=== PATIENT | male | born 1940 | race Caucasian/White ===

== ENCOUNTER 2016-08-13 22:06 | Inpatient (IN) | payer MEDICARE, MEDICAID ==
[2016-08-13 22:25] LABS: PCO2 Arterial 52 mmHg (35-45)
[2016-08-13 22:51] LABS: ALT 16 U/L (7-52); Albumin 3.5 g/dL (3.2-5.2); Alkaline Phosphatase 71 U/L (34-104); BUN/Creatinine Ratio 25.1 (8-20); Blood Urea Nitrogen 45 mg/dL (6-24); C Reactive Protein 22.68 mg/L (< 5.00); CO2 Carbon Dioxide 26 mmol/L (22-32); Chloride 104 mmol/L (101-111); Creatine Kinase 57 U/L (10-223); EGFR Non-African American 37.3 (>60); Globulin 3.3 g/dL (2-4); Glucose 166 mg/dL (70-100); Lipase < 10 U/L (11.0-82.0); Magnesium 1.8 mg/dL (1.9-2.7); Sodium 137 mmol/L (133-145); Total Protein 6.8 g/dL (6.4-8.9)
[2016-08-13 22:52] LABS: Hematocrit 36 % (42-52); Hemoglobin 11.2 g/dl (14.0-18.0); Mean Corpuscular HGB Conc 31 g/dl (31-36); Mean Corpuscular Hemoglobin 26 pg (27-31); Mean Corpuscular Volume 83 fL (80-94); Red Blood Count 4.37 10^6/ul (4.0-5.4); Red Cell Distribution Width 18 % (10.5-15)
[2016-08-13 22:54] LABS: Add Diff/Slide Review? Manual Diff Added; Comments Flag Yes
[2016-08-13 23:04] LABS: Troponin I 0.05 ng/mL (<0.04)
[2016-08-13 23:05] LABS: TSH (Thyroid Stimulating Horm) 4.55 mcIU/mL (0.34-5.60)
[2016-08-13] MEDS ORDERED: Furosemide IV* 10 MG/ML VIAL (40 MG) IV ONE (23:15)
[2016-08-13 23:26] LABS: AST 17 U/L (13-39); Anion Gap 7 mmol/L (2-11); Potassium 4.9 mmol/L (3.5-5.0)
[2016-08-13 23:33] LABS: Mean Platelet Volume 10 um3 (7.4-10.4)
[2016-08-13] MEDS ORDERED: Levofloxacin 750 MG IVPREMIX(* 750 MG/150 ML BAG IVPB ONE (23:33)
[2016-08-14 00:13] LABS: Neutrophil % 90 % (38-83)
[2016-08-14 00:14] LABS: Add Path Review? YES; Burr Cells 1+; Schistocytes 1+
[2016-08-14 00:23] LABS: Urine Bacteria 3+ (Absent); Urine Bilirubin Negative (Negative); Urine Glucose 2+(150 mg/dL) (Negative); Urine Nitrite Negative (Negative)
[2016-08-14 02:16] LABS: FIO2 28
[2016-08-14 02:20] LABS: PCO2 Arterial 45 mmHg (35-45)
--- NOTE | 2016-08-14 04:20 | ED ---
Juan Mccray Aidan, scribed for Ever Mora on 08/14/16 at 0337 . Progress - Progress Note Progress Note: The patient will be admitted to the hospitalist with a diagnosis of CHF and SOB. Course/Dx - Diagnoses Provider Diagnoses: CHF (congestive heart failure) The documentation as recorded by the Juan preston Aidan accurately reflects the service I personally performed and the decisions made by Morgan carter Emmanuel.
[2016-08-14] MEDS ORDERED: Albuterol 2.5 MG/3 ML NEB.SOL* (0.083%) INH PRN (04:32)
[2016-08-14] MEDS ORDERED: Morphine INJ* 2 MG/ML 1 ML CARPUJECT IV PRN (04:32)
[2016-08-14] MEDS ORDERED: Ondansetron INJ* 2 MG/ML VIAL IV PRN (04:32)
[2016-08-14] MEDS ORDERED: CMCS: Melatonin (NF) 3 MG TAB PO PRN (04:32)
[2016-08-14] MEDS: CMCS: Pantoprazole TAB (NF) 40 MG TAB PO SCH (06:06)
[2016-08-14] MEDS ORDERED: Albuterol 2.5 MG/3 ML NEB.SOL* (0.083%) INH SCH (07:00)
--- NOTE | 2016-08-14 07:10 | RAD ---
INDICATION: Shortness of breath. COMPARISON: Comparison is made with prior chest x-ray study from May 17, 2015. TECHNIQUE: A portable view of the chest was obtained. FINDINGS: The heart is within normal limits in size. The lungs are underinflated. There are small bibasilar infiltrates suggestive of atelectasis less likely pneumonia. The left costophrenic angle is cut off on the film limiting the exam. IMPRESSION: EXPIRATORY EXAM, SMALL BIBASILAR INFILTRATE.
[2016-08-14] MEDS: Mometasone/Formoter 200/5 MDI INH SCH ×2 (07:13→19:27)
[2016-08-14] MEDS: Tiotropium CAP.INH* CAP.INH/18 MCG (USE ORDER SET !) INH SCH (07:14)
--- NOTE | 2016-08-14 07:30 | HP ---
H&P (Free Text) History and Physical: PCP: Earl Forrester MD Date/Time of Evaluation: 02/11/2017 0400 CC: SOB HPI: Mr Camargo is 75YO male HX CHF, DM, HTN who reports being in his usual state of health throughout the day with gradual onset of progressive SOB beginning around 1900. He notified staff at [facility] where he lives. They gave him a breathing treatment without improvement, rather he was continuing to worsen and so EMS was called. He denies chest pain, palpitations, F/C, cough, congestion, or other issues. He was placed on BiPap. Initial ABG showed early hypercarbic respiratory failure. He was given IV furosemide and was able to be weaned from BiPap with ABG ~1hour post BiPap remaining normalized. 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 hypothyroidism REY Allergies No Known Allergies Allergy (Verified 08/13/16 22:25) Ambulatory Orders Acetaminophen TAB* [Tylenol TAB*] 650 mg PO Q4H PRN 09/09/12 Amiodarone TAB* [Cordarone Tab*] 100 mg PO DAILY 09/09/12 Aspirin Low Dose CHEW TAB* [Aspirin Low Dose TAB*] 81 mg PO DAILY 09/09/12 Atorvastatin* [Lipitor*] 10 mg PO BEDTIME 09/09/12 Carvedilol TAB* [Coreg TAB*] 12.5 mg PO BID 09/09/12 Clopidogrel TAB* [Plavix TAB*] 75 mg PO DAILY 09/09/12 Docusate CAP* [Colace Cap*] 200 mg PO DAILY 09/09/12 Pantoprazole TAB (NF) [Protonix TAB (NF)] 40 mg PO DAILY 09/09/12 oxyCODONE/Acetamin 5/325 MG* [Percocet 5/325 TAB*] 1 tab PO Q4H PRN 09/09/12 predniSONE TAB* [Deltasone TAB*] 20 mg PO BEDTIME 09/09/12 Cholecalciferol [Vitamin D3] 50,000 unit PO MONTHLY 02/02/15 Finasteride TAB* [Proscar TAB*] 5 mg PO BEDTIME 02/02/15 Guaifenesin 400 mg PO BID PRN 02/02/15 Insulin ASPART (NF) [Novolog (NF)] 0 - 15 unit SUBCUT AC 02/02/15 Levothyroxine TAB (NF) [Synthroid TAB (NF)] 175 mcg PO MOTUWETHFRSA 02/02/15 Magnesium Hydroxide LIQ* [Milk of Magnesia LIQ*] 30 ml PO DAILY PRN 02/02/15 zzInsulin GLARGINE(*) [Lantus(*)] 50 units SUBCUT QAM 02/02/15 Alum & Mag Hydrox-Simethicone [Maalox Advanced Maximum S 400-400-40 mg/5Ml] 1 nicky PO Q4H PRN 08/13/16 Doxycycline Calcium [Vibramycin] 100 mg PO BID 08/13/16 Ipratropium 0.5MG/2.5ML NEB* [Atrovent 0.5 MG NEB.FRAN*] 0.5 mg INH Q4H PRN 08/13 Lactobacillus (NF) [Culturelle (NF)] 10 tab PO DAILY 08/13/16 Loratadine [Claritin] 10 mg PO DAILY 08/13/16 predniSONE TAB* [Deltasone TAB*] 10 mg PO DAILY 08/13/16 SocHx: former smoker quit ~40 years ago, former alcoholic quit ~40 years ago, no recreational drugs; lives at [facility], wheelchair bound; DNR code status FamHx: reviewed, non-contributory ROS: as above, otherwise reviewed and all were negative Constitutional: NAD, normally developed, morbidly obese white male vitals: Vital Signs Temp 36.9 C 08/14/16 06:10 Pulse 86 08/14/16 06:10 Resp 18 08/14/16 06:14 BP 147/81 08/14/16 06:10 Pulse Ox 97 08/14/16 06:10 Intake & Output 08/13/16 08/13/16 08/14/16 11:59 23:59 11:59 Intake Total 150 Balance 150 Weight 319 lb 295 lb Intake: IV Fluids 150 HEENM: atraumatic; sclera/conjunctiva: non-icteric/clear; hearing: mildly clinically decreased; oropharynx: clear, mucosa moist Neck: soft tissue: non-tender; thyroid: normal Pulmonary: scant scattered rhonchi, good aeration, no accessory muscle use CV: RR/RR, normal S1S2, no carotid bruit, no jugular venous distention, 2+ B DP/ PT, 3+ LE edema Abdominal: soft, non-distended, non-tender, no rebound/guarding/rigidity, normoactive bowel sounds, no hepatosplenomegaly or masses, no costovertebral angle tenderness Musculoskeletal: general: s/p R BKA; gait: wheelchair bound at baseline Integumental: venous stasis LLE Psychiatric orientation: AA&O to PPS affect: calm mood: cooperative eye contact: good, OD strabismus content: reliable responses: timely insight: good Testing: Lab Results 08/13/16 08/13/16 08/13/16 Range/Units 22:15 22:20 22:20 WBC 18.0 H (3.5-10.8) 10^3/ul RBC 4.37 (4.0-5.4) 10^6/ul Hgb 11.2 L (14.0-18.0) g/dl Hct 36 L (42-52) % MCV 83 (80-94) fL MCH 26 L (27-31) pg MCHC 31 (31-36) g/dl RDW 18 H (10.5-15) % Plt Count 267 (150-450) 10^3/ul MPV 10 (7.4-10.4) um3 Immature Gran % (Auto) Not Reportable Absolute Neuts (auto) 16.2 H (1.5-7.7) 10^3/ul Absolute Lymphs (auto) 0.4 L (1.0-4.8) 10^3/ul Absolute Monos (auto) 1.4 H (0-0.8) 10^3/ul Absolute Eos (auto) 0 (0-0.6) 10^3/ul Absolute Basos (auto) 0 (0-0.2) 10^3/ul Absolute Nucleated RBC 0 10^3/ul Neutrophils % 90 H (38-83) % Band Neutrophils % Not Reportable Lymphocytes % 2 L (25-47) % Monocytes % 8 (0-13) % Normal RBC Morphology Not Reportable [place] Cells 1+ Acanthocytes (Spur) 1+ Schistocytes 1+ Hem Pathologist Commnt Pending INR (Anticoag Therapy) 0.95 (0.89-1.11) APTT 23.3 L (26.0-36.3) seconds Patient Temperature ABG pH 7.34 L (7.35-7.45) ABG pCO2 52 H (35-45) mmHg ABG pO2 113 H (80-100) mmHg ABG HCO3 26.1 (19-31) mmol/L ABG O2 Saturation 97.9 (95-98) % ABG Base Excess 1.6 (-2.0-2.0) Respiration Rate O2 Delivery Device Ventilator Type Vent Mode FiO2 Inspiratory Time PEEP Pressure Support Pressure Control EPAP IPAP BiPAP Sodium (133-145) mmol/L Potassium (3.5-5.0) mmol/L Chloride (101-111) mmol/L Carbon Dioxide (22-32) mmol/L Anion Gap (2-11) mmol/L BUN (6-24) mg/dL Creatinine (0.67-1.17) mg/dL Est GFR ( Amer) (>60) Est GFR (Non-Af Amer) (>60) BUN/Creatinine Ratio (8-20) Glucose (70-100) mg/dL Lactic Acid (0.5-2.0) mmol/L Calcium (8.6-10.3) mg/dL Magnesium (1.9-2.7) mg/dL Total Bilirubin (0.2-1.0) mg/dL AST (13-39) U/L ALT (7-52) U/L Alkaline Phosphatase (34-104) U/L Total Creatine Kinase (10-223) U/L CK-MB (CK-2) (0.6-6.3) ng/mL Troponin I (<0.04) ng/mL C-Reactive Protein (< 5.00) mg/L B-Natriuretic Peptide ( - 100) pg/mL Total Protein (6.4-8.9) g/dL Albumin (3.2-5.2) g/dL Globulin (2-4) g/dL Albumin/Globulin Ratio (1-3) Lipase (11.0-82.0) U/L TSH (0.34-5.60) mcIU/mL Urine Color Urine Appearance Urine pH (5-9) Ur Specific [place] (1.010-1.030) Urine Protein (Negative) Urine Ketones (Negative) Urine Blood (Negative) Urine Nitrate (Negative) Urine Bilirubin (Negative) Urine Urobilinogen (Negative) Ur Leukocyte Esterase (Negative) Urine WBC (Auto) (Absent) Urine RBC (Auto) (Absent) Ur Squamous Epith Cells (Absent) Urine Bacteria (Absent) Hyaline Casts (Absent) Urine Glucose (Negative) 08/13/16 08/13/16 08/13/16 Range/Units 22:20 22:20 22:20 WBC (3.5-10.8) 10^3/ul RBC (4.0-5.4) 10^6/ul Hgb (14.0-18.0) g/dl Hct (42-52) % MCV (80-94) fL MCH (27-31) pg MCHC (31-36) g/dl RDW (10.5-15) % Plt Count (150-450) 10^3/ul MPV (7.4-10.4) um3 Immature Gran % (Auto) Absolute Neuts (auto) (1.5-7.7) 10^3/ul Absolute Lymphs (auto) (1.0-4.8) 10^3/ul Absolute Monos (auto) (0-0.8) 10^3/ul Absolute Eos (auto) (0-0.6) 10^3/ul Absolute Basos (auto) (0-0.2) 10^3/ul Absolute Nucleated RBC 10^3/ul Neutrophils % (38-83) % Band Neutrophils % Lymphocytes % (25-47) % Monocytes % (0-13) % Normal RBC Morphology Volodymyr Cells Acanthocytes (Spur) Schistocytes Hem Pathologist Commnt INR (Anticoag Therapy) (0.89-1.11) APTT (26.0-36.3) seconds Patient Temperature ABG pH (7.35-7.45) ABG pCO2 (35-45) mmHg ABG pO2 (80-100) mmHg ABG HCO3 (19-31) mmol/L ABG O2 Saturation (95-98) % ABG Base Excess (-2.0-2.0) Respiration Rate O2 Delivery Device Ventilator Type Vent Mode FiO2 Inspiratory Time PEEP Pressure Support Pressure Control EPAP IPAP BiPAP Sodium 137 (133-145) mmol/L Potassium 4.9 (3.5-5.0) mmol/L Chloride 104 (101-111) mmol/L Carbon Dioxide 26 (22-32) mmol/L Anion Gap 7 (2-11) mmol/L BUN 45 H (6-24) mg/dL Creatinine 1.79 H (0.67-1.17) mg/dL Est GFR ( Amer) 48.0 (>60) Est GFR (Non-Af Amer) 37.3 (>60) BUN/Creatinine Ratio 25.1 H (8-20) Glucose 166 H (70-100) mg/dL Lactic Acid 0.9 (0.5-2.0) mmol/L Calcium 9.0 (8.6-10.3) mg/dL Magnesium 1.8 L (1.9-2.7) mg/dL Total Bilirubin 0.50 (0.2-1.0) mg/dL AST 17 (13-39) U/L ALT 16 (7-52) U/L Alkaline Phosphatase 71 (34-104) U/L Total Creatine Kinase 57 (10-223) U/L CK-MB (CK-2) 4.7 (0.6-6.3) ng/mL Troponin I 0.05 H* (<0.04) ng/mL C-Reactive Protein 22.68 H (< 5.00) mg/L B-Natriuretic Peptide 410 H ( - 100) pg/mL Total Protein 6.8 (6.4-8.9) g/dL Albumin 3.5 (3.2-5.2) g/dL Globulin 3.3 (2-4) g/dL Albumin/Globulin Ratio 1.1 (1-3) Lipase < 10 L (11.0-82.0) U/L TSH 4.55 (0.34-5.60) mcIU/mL Urine Color Urine Appearance Urine pH (5-9) Ur Specific [place] (1.010-1.030) Urine Protein (Negative) Urine Ketones (Negative) Urine Blood (Negative) Urine Nitrate (Negative) Urine Bilirubin (Negative) Urine Urobilinogen (Negative) Ur Leukocyte Esterase (Negative) Urine WBC (Auto) (Absent) Urine RBC (Auto) (Absent) Ur Squamous Epith Cells (Absent) Urine Bacteria (Absent) Hyaline Casts (Absent) Urine Glucose (Negative) 08/13/16 08/14/16 Range/Units 23:50 02:12 WBC (3.5-10.8) 10^3/ul RBC (4.0-5.4) 10^6/ul Hgb (14.0-18.0) g/dl Hct (42-52) % MCV (80-94) fL MCH (27-31) pg MCHC (31-36) g/dl RDW (10.5-15) % Plt Count (150-450) 10^3/ul MPV (7.4-10.4) um3 Immature Gran % (Auto) Absolute Neuts (auto) (1.5-7.7) 10^3/ul Absolute Lymphs (auto) (1.0-4.8) 10^3/ul Absolute Monos (auto) (0-0.8) 10^3/ul Absolute Eos (auto) (0-0.6) 10^3/ul Absolute Basos (auto) (0-0.2) 10^3/ul Absolute Nucleated RBC 10^3/ul Neutrophils % (38-83) % Band Neutrophils % Lymphocytes % (25-47) % Monocytes % (0-13) % Normal RBC Morphology [place] Cells Acanthocytes (Spur) Schistocytes Hem Pathologist Commnt INR (Anticoag Therapy) (0.89-1.11) APTT (26.0-36.3) seconds Patient Temperature Not Reportable ABG pH 7.40 (7.35-7.45) ABG pCO2 45 (35-45) mmHg ABG pO2 77 L (80-100) mmHg ABG HCO3 26.9 (19-31) mmol/L ABG O2 Saturation 97.3 (95-98) % ABG Base Excess 2.6 H (-2.0-2.0) Respiration Rate Not Reportable O2 Delivery Device nasal cannula Ventilator Type Not Reportable Vent Mode Not Reportable FiO2 28 Inspiratory Time Not Reportable PEEP Not Reportable Pressure Support Not Reportable Pressure Control Not Reportable EPAP Not Reportable IPAP Not Reportable BiPAP Not Reportable Sodium (133-145) mmol/L Potassium (3.5-5.0) mmol/L Chloride (101-111) mmol/L Carbon Dioxide (22-32) mmol/L Anion Gap (2-11) mmol/L BUN (6-24) mg/dL Creatinine (0.67-1.17) mg/dL Est GFR ( Amer) (>60) Est GFR (Non-Af Amer) (>60) BUN/Creatinine Ratio (8-20) Glucose (70-100) mg/dL Lactic Acid (0.5-2.0) mmol/L Calcium (8.6-10.3) mg/dL Magnesium (1.9-2.7) mg/dL Total Bilirubin (0.2-1.0) mg/dL AST (13-39) U/L ALT (7-52) U/L Alkaline Phosphatase (34-104) U/L Total Creatine Kinase (10-223) U/L CK-MB (CK-2) (0.6-6.3) ng/mL Troponin I (<0.04) ng/mL C-Reactive Protein (< 5.00) mg/L B-Natriuretic Peptide ( - 100) pg/mL Total Protein (6.4-8.9) g/dL Albumin (3.2-5.2) g/dL Globulin (2-4) g/dL Albumin/Globulin Ratio (1-3) Lipase (11.0-82.0) U/L TSH (0.34-5.60) mcIU/mL Urine Color Yellow Urine Appearance Cloudy Urine pH 8.0 (5-9) Ur Specific [place] 1.013 (1.010-1.030) Urine Protein 2+(100 mg/dl) H (Negative) Urine Ketones Negative (Negative) Urine Blood 1+ H (Negative) Urine Nitrate Negative (Negative) Urine Bilirubin Negative (Negative) Urine Urobilinogen Negative (Negative) Ur Leukocyte Esterase 2+ H (Negative) Urine WBC (Auto) 3+(>20/hpf) H (Absent) Urine RBC (Auto) Trace(0-2/hpf) (Absent) Ur Squamous Epith Cells Present H (Absent) Urine Bacteria 3+ H (Absent) Hyaline Casts Present H (Absent) Urine Glucose 2+(150 mg/dl) H (Negative) ECG, personally reviewed: sinus arrhythmia LBBB CXR, personally reviewed: CHF Impression: 75M presenting in acute hypercapneic respiratory failure 2nd acute diastolic HF of uncertain etiology DIAGNOSIS & PLAN Primary acute hypercapneic respiratory failure 2nd acute diastolic HF of uncertain etiology : telemetry : continue furosemide diuresis : strict I&Os : daily weights : low sodium diet : trend troponin : check ECHO : consider cardiology consult in AM : supplemental oxygen : supportive care Secondary CAD/MS/stent x2 : continue aspirin, clopidogrel, amiodarone HTN : continue carvediolol HLD : continue atorvastatin DM2 w/ peripheral neuropathy : insulin carb ratio diet : basal/bolus/correctional protocol s/p BKA sarcoidosis : continue prednisone hypothyroidism : continue levothyroxine GERD : omeprazole BPH : continue finasteride Admission Rational: inpatient for acute diastolic HF of uncertain etiology in a patient at very high risk of rapid/terminal decompensation DVTp: SCDs & heparin SQ Code Status: DNR HCP: daughterKarla
[2016-08-14 07:51] LABS: Hematocrit 34 % (42-52); Hemoglobin 10.7 g/dl (14.0-18.0); Mean Corpuscular HGB Conc 32 g/dl (31-36); Mean Corpuscular Hemoglobin 26 pg (27-31); Mean Corpuscular Volume 82 fL (80-94); Mean Platelet Volume 10 um3 (7.4-10.4); Red Blood Count 4.12 10^6/ul (4.0-5.4); Red Cell Distribution Width 17 % (10.5-15); White Blood Count 18.1 10^3/ul (3.5-10.8)
[2016-08-14] MEDS: Insulin LISPRO* 1 UNITS UNIT SUBCUT SCH ×7 (07:56→20:18)
[2016-08-14 07:59] LABS: Comments Flag Yes
[2016-08-14 08:01] LABS: Add Diff/Slide Review? Slide Review Added
[2016-08-14 08:04] LABS: BUN/Creatinine Ratio 25.8 (8-20); EGFR African American 48.3 (>60); EGFR Non-African American 37.5 (>60); Potassium 4.2 mmol/L (3.5-5.0)
[2016-08-14 08:14] LABS: Troponin I 0.16 ng/mL (<0.04)
[2016-08-14] MEDS ORDERED: Spiriva Inhaler DEVICE* 1 EACH DEVICE INH ONE (09:00)
[2016-08-14] MEDS: predniSONE TAB* 10 MG PO SCH (09:14)
[2016-08-14] MEDS: Docusate CAP* 100 MG PO SCH ×2 (09:14→20:16)
[2016-08-14] MEDS: Aspirin Low Dose CHEW TAB* 81 MG PO SCH (09:14)
[2016-08-14] MEDS: Amiodarone TAB* 200 MG PO SCH (09:14)
[2016-08-14] MEDS: Carvedilol TAB* 6.25 MG PO SCH ×2 (09:14→17:26)
[2016-08-14] MEDS: Clopidogrel TAB* 75 MG PO SCH (09:14)
[2016-08-14] MEDS: Furosemide IV* 10 MG/ML 10 ML VIAL (100 MG) IV SCH ×2 (09:15→13:38)
[2016-08-14] MEDS: Insulin GLARGINE(*) 1 UNITS UNIT SUBCUT SCH (09:17)
[2016-08-14] MEDS: DOXYcycline CAP(*) 100 MG PO SCH ×2 (09:21→20:16)
--- NOTE | 2016-08-14 09:47 | PN ---
Subjective Date of Service: 08/14/16 Interval History: Patient seen this morning. Says he is feeling much improved in terms of breathing. Denies any chest pain. Urinated a lot in ED (not documented), no dysuria. Reports concern about his kidneys, reassured they are stable. Family History: Unchanged from Admission Social History: Unchanged from Admission Past Medical History: Unchanged from Admission Objective Active Medications: Acetaminophen (Tylenol Tab*) 650 mg PO Q6H PRN Albuterol (Ventolin 2.5 Mg/3 Ml Neb.Shari*) 2.5 mg INH Q2H PRN Albuterol (Ventolin 2.5 Mg/3 Ml Neb.Shari*) 2.5 mg INH [id number] AWAKE ARBEN Amiodarone HCl (Cordarone Tab*) 100 mg PO DAILY ARBEN Aspirin (Aspirin Low Dose Tab*) 81 mg PO DAILY ARBEN Atorvastatin Calcium (Lipitor*) 10 mg PO BEDTIME ARBEN Carvedilol (Coreg Tab*) 12.5 mg PO BID WITH MEALS ARBEN Cetirizine HCl (Zyrtec*) 10 mg PO QPM ARBEN Clopidogrel Bisulfate (Plavix Tab*) 75 mg PO DAILY ARBEN Docusate Sodium (Colace Cap*) 200 mg PO BID ARBEN Doxycycline Hyclate (Vibramycin Cap(*)) 100 mg PO BID ARBEN Finasteride (Proscar Tab*) 5 mg PO BEDTIME ARBEN Furosemide (Lasix Iv*) 40 mg IV 0800,1200 ARBEN Heparin Sodium (Porcine) (Heparin Vial(*)) 5,000 units SUBCUT Q8HR ARBEN Insulin Glargine (Lantus(*)) 35 units SUBCUT 0900 ARBEN Insulin Human Lispro (Humalog*) 0 units SUBCUT AC ARBEN Insulin Human Lispro (Humalog*) 0 units SUBCUT ACHS ARBEN Levothyroxine Sodium (Synthroid Tab*) 100 mcg PO MoTuWeThFrSa@0600 ARBEN Levothyroxine Sodium (Synthroid Tab*) 75 mcg PO MoTuWeThFrSa@0600 ARBEN Melatonin (Melatonin (Nf)) 3 mg PO BEDTIME PRN; Protocol Mometasone Furoate/Formoterol Fumar (Dulera 200/5 Mdi*) 2 puff INH BID ARBEN Morphine Sulfate (Morphine Inj (Syringe)*) 2 mg IV Q4H PRN Ondansetron HCl (Zofran Inj*) 4 mg IV Q6H PRN Pantoprazole Sodium (Protonix Tab (Nf)) 40 mg PO DAILY@0600 ARBEN Prednisone (Deltasone Tab*) 10 mg PO DAILY WITH MEAL [facility] Tiotropium Lehr (Spiriva Cap.Inh*) 1 cap INH DAILY [facility] Vital Signs 08/14/16 08/14/16 08/14/16 04:30 05:00 05:30 Temperature Pulse Rate 79 77 81 Respiratory Rate Blood Pressure 143/89 140/75 142/79 (mmHg) O2 Sat by Pulse 94 91 96 Oximetry 08/14/16 08/14/16 08/14/16 06:10 06:14 07:17 Temperature 98.5 F Pulse Rate 86 82 Respiratory 20 18 Rate Blood Pressure 147/81 (mmHg) O2 Sat by Pulse 97 93 Oximetry 08/14/16 07:48 Temperature 97.6 F Pulse Rate 96 Respiratory 16 Rate Blood Pressure 139/86 (mmHg) O2 Sat by Pulse 97 Oximetry Oxygen Devices in Use Now: Nasal Cannula Appearance: 2L Eyes: No Scleral Icterus Ears/Nose/Mouth/Throat: Mucous Membranes Moist Neck: NL Appearance and Movements; NL JVP Respiratory: Symmetrical Chest Expansion and Respiratory Effort, - - Diminished BS in bases Cardiovascular: - - Irregular, no m/g/r, normal rate Abdominal: NL Sounds; No Tenderness; No Distention Lymphatic: No Cervical Adenopathy Extremities: - - RLE BKA, signifiant LLE edema to low abdomen Skin: - - Chronic LE skin changes Neurological: Alert and Oriented x 3 Result Diagrams: 08/14/16 07:23 08/14/16 07:23 Assess/Plan/Problems-Billing Assessment: Acute combined hypoxic and hypercarbic respiratory failure 2/2 acute on chronic systolic CHF exacerbation in a 75 yo M with hx of sCHF, CAD s/p [place], HTN, HLD, DM , sarcoidosis with renal involvement, CKD, hypothyroidism, - Patient Problems (1) Acute on chronic systolic (congestive) heart failure Current Visit: Yes Comment: Improvement in respiratory status after BIPAP and Lasix. Continue BID Lasix for now with close eye on renal function and strict I/ O. Continue Coreg. Troponin elevation likely due to acute CHF, will continue to trend. Echo pending. Spoke with Cardiology who will evaluate the patient. (2) Acute respiratory failure with hypoxia and hypercapnia Current Visit: Yes Comment: Improving, no longer hypercarbic. O2 weaned to 2L , continue to wean as able. (3) CAD (coronary artery disease) Current Visit: No Comment: Cont ASA/Plavix/statin. Trend troponins as above. (4) HTN (hypertension) Current Visit: No Comment: Continue home Coreg (5) Hypothyroid Current Visit: No Comment: Continue home synthroid (6) CKD (chronic kidney disease) stage 3, GFR 30-59 ml/min Current Visit: No Comment: 2/2 renal sarcoid. Creat at baseline today. Cont to monitor (7) Chronic mastoiditis Current Visit: Yes Comment: Continue home doxycyline (8) Leukocytosis Current Visit: Yes Comment: chronic, s/p splenectomy (9) Diabetes Current Visit: Yes Comment: Continue decreased Lantus (on home is on 50u qAM and 20u qPM) and HISS (10) Sarcoidosis Current Visit: No Comment: On chronic prednisone at home. (11) DVT prophylaxis Current Visit: No Comment: heparin sc (12) DNR (do not resuscitate) Current Visit: Yes
[2016-08-14] MEDS ORDERED: Ipratropium 0.5MG/2.5ML NEB* 0.5 MG/2.5 ML NEB.SOLN INH PRN (09:52)
--- NOTE | 2016-08-14 10:30 | CONSULT ---
Subjective Date of Service: 08/14/16 Interval History: Admission Date: 08/14/16 Provider: Hospitalist Date of consult 08/14/2016 PCP : Earl Forrester MD CC : MERCEDES Reason for consult: CHF, abnormal troponin HPI : Mr Camargo is 75 year old man with a history of CAD s/p PCI with known unrevascularized obstructive distal RCA disease, HF with a mildly reduced LVEF not currently on a loop diuretic, chronic prednisone use for sarcoidosis, DM, HTN, VT in the past on low dose amiodarone. Patient wth gradual onset dyspnea and cough. He was found with acutely decompensated heart failure and has responded to BIPAP (now off) and IV lasix. He is no longer dyspneic at rest. He denied any chest, GI, shoulder or arm discomfort throughout any of this. He denies any recent palpitations or syncope. 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 hypothyroidism REY Hospitalized 07/2009 with CHF and VT, received PCI to Lcx had residual distal obstructive CAD of a dominant RCA Allergies No Known Allergies Allergy (Verified 08/13/16 22:25) SocHx : former smoker quit ~40 years ago, former alcoholic quit ~40 years ago, no recreational drugs; lives at [facility], wheelchair bound; DNR code status FamHx : reviewed, non-contributory Medications Active Medications: Acetaminophen (Tylenol Tab*) 650 mg PO Q6H PRN PRN Reason: FEVER/PAIN Amiodarone HCl (Cordarone Tab*) 100 mg PO DAILY [facility] Last Admin: 08/14/16 09:14 Dose: 100 mg Aspirin (Aspirin Low Dose Tab*) 81 mg PO DAILY [facility] Last Admin: 08/14/16 09:14 Dose: 81 mg Atorvastatin Calcium (Lipitor*) 10 mg PO BEDTIME [facility] Carvedilol (Coreg Tab*) 12.5 mg PO BID WITH MEALS [facility] Last Admin: 08/14/16 09:14 Dose: 12.5 mg Cetirizine HCl (Zyrtec*) 10 mg PO QPM [facility] Clopidogrel Bisulfate (Plavix Tab*) 75 mg PO DAILY [facility] Last Admin: 08/14/16 09:14 Dose: 75 mg Docusate Sodium (Colace Cap*) 200 mg PO BID [facility] Last Admin: 01/22/17 09:14 Dose: 200 mg Doxycycline Hyclate (Vibramycin Cap(*)) 100 mg PO BID [facility] Last Admin: 08/14/16 09:21 Dose: 100 mg Finasteride (Proscar Tab*) 5 mg PO BEDTIME [facility] Furosemide (Lasix Iv*) 40 mg IV 0800,1200 [facility] Last Admin: 08/14/16 09:15 Dose: 40 mg Heparin Sodium (Porcine) (Heparin Vial(*)) 5,000 units SUBCUT Q8HR [facility] Insulin Glargine (Lantus(*)) 35 units SUBCUT 0900 [facility] Stop: 08/15/16 20:00 Last Admin: 08/14/16 09:17 Dose: 35 units Insulin Human Lispro (Humalog*) 0 units SUBCUT AC [facility] PRN Reason: Protocol Last Admin: 08/14/16 08:55 Dose: Not Given Insulin Human Lispro (Humalog*) 0 units SUBCUT ACHS [facility] PRN Reason: Protocol Last Admin: 08/14/16 07:56 Dose: Not Given Ipratropium [place] (Atrovent 0.5 Mg Neb.Fran*) 0.5 mg INH Q4H PRN PRN Reason: SOB/WHEEZING Levothyroxine Sodium (Synthroid Tab*) 100 mcg PO MoTuWeThFrSa@0600 [facility] Levothyroxine Sodium (Synthroid Tab*) 75 mcg PO MoTuWeThFrSa@0600 [facility] Melatonin (Melatonin (Nf)) 3 mg PO BEDTIME PRN; Protocol PRN Reason: Sleep Mometasone Furoate/Formoterol Fumar (Dulera 200/5 Mdi*) 2 puff INH BID [facility] Last Admin: 08/14/16 07:13 Dose: 2 puff Morphine Sulfate (Morphine Inj (Syringe)*) 2 mg IV Q4H PRN PRN Reason: SOB/WHEEZING Ondansetron HCl (Zofran Inj*) 4 mg IV Q6H PRN PRN Reason: NAUSEA Pantoprazole Sodium (Protonix Tab (Nf)) 40 mg PO DAILY@0600 [facility] Last Admin: 08/14/16 06:06 Dose: 40 mg Prednisone (Deltasone Tab*) 10 mg PO DAILY WITH MEAL [facility] Last Admin: 08/14/16 09:14 Dose: 10 mg Tiotropium [place] (Spiriva Cap.Inh*) 1 cap INH DAILY [facility] Last Admin: 08/14/16 07:14 Dose: 1 cap Home Medications: Acetaminophen TAB* [Tylenol TAB*] 650 mg PO Q4H PRN 09/09/12 [History Confirmed 08/13/16] Amiodarone TAB* [Cordarone Tab*] 100 mg PO DAILY 09/09/12 [History Confirmed ] Aspirin Low Dose CHEW TAB* [Aspirin Low Dose TAB*] 81 mg PO DAILY 09/09/12 [ History Confirmed 08/13/16] Atorvastatin* [Lipitor*] 10 mg PO BEDTIME 09/09/12 [History Confirmed 08/13/16] Carvedilol TAB* [Coreg TAB*] 12.5 mg PO BID 09/09/12 [History Confirmed 08/13/16 ] Clopidogrel TAB* [Plavix TAB*] 75 mg PO DAILY 09/09/12 [History Confirmed ] Docusate CAP* [Colace Cap*] 200 mg PO DAILY 09/09/12 [History Confirmed 08/13/16 ] Pantoprazole TAB (NF) [Protonix TAB (NF)] 40 mg PO DAILY 09/09/12 [History Confirmed 08/13/16] oxyCODONE/Acetamin 5/325 MG* [Percocet 5/325 TAB*] 1 tab PO Q4H PRN 09/09/12 [ History Confirmed 08/13/16] predniSONE TAB* [Deltasone TAB*] 20 mg PO BEDTIME 09/09/12 [History Confirmed ] Cholecalciferol [Vitamin D3] 50,000 unit PO MONTHLY 02/02/15 [History Confirmed 08/13/16] Finasteride TAB* [Proscar TAB*] 5 mg PO BEDTIME 02/02/15 [History Confirmed ] Guaifenesin 400 mg PO BID PRN 02/02/15 [History Confirmed 08/13/16] Insulin ASPART (NF) [Novolog (NF)] 0 - 15 unit SUBCUT AC 02/02/15 [History Confirmed 02/02/15] Levothyroxine TAB (NF) [Synthroid TAB (NF)] 175 mcg PO MOTUWETHFRSA 02/02/15 [ History Confirmed 08/13/16] Magnesium Hydroxide LIQ* [Milk of Magnesia LIQ*] 30 ml PO DAILY PRN 02/02/15 [ History Confirmed 08/13/16] zzInsulin GLARGINE(*) [Lantus(*)] 50 units SUBCUT QAM 02/02/15 [History Confirmed 02/02/15] Alum & Mag Hydrox-Simethicone [Maalox Advanced Maximum S 400-400-40 mg/5Ml] 1 nicky PO Q4H PRN 08/13/16 [History Confirmed 08/13/16] Doxycycline Calcium [Vibramycin] 100 mg PO BID 08/13/16 [History Confirmed 08/13] Ipratropium 0.5MG/2.5ML NEB* [Atrovent 0.5 MG NEB.FRAN*] 0.5 mg INH Q4H PRN 08/13 [History Confirmed 08/13/16] Lactobacillus (NF) [Culturelle (NF)] 10 tab PO DAILY 08/13/16 [History Confirmed 08/13/16] Loratadine [Claritin] 10 mg PO DAILY 08/13/16 [History Confirmed 08/13/16] predniSONE TAB* [Deltasone TAB*] 10 mg PO DAILY 08/13/16 [History Confirmed ] Review of Systems - Measurements Intake and Output: Intake and Output Last 24 Hours 08/12/16 08/13/16 08/14/16 08/15/16 06:59 06:59 06:59 06:59 Weight 295 lb - Review of Systems Constitutional Symptoms: Positive: Weakness, Fatigue Negative: Fever, Night Sweats, Unexplained Falls Dermatology: Negative: Rash, Skin Lesions, Cancer HEENT: Negative: Change in Hearing, Vertigo, Tinnitus Eyes: Negative: Change in Vision, Double Vision, Eye Pain Thyroid: Negative: Cold Intolerance, Heat Intolerance, Sweatiness, Constipation, Palpitations, Primary Hypothyroidism, Primary Hyperthyroidism Pulmonary: Positive: Cough, Respiratory Distress, Shortness of Breath, Exercise Intolerance Negative: Hemoptysis, Wheezing, COPD, Asthma Cardiology: Positive: Shortness of Breath Negative: Chest Pain, Palpitations, Peripheral Vascular Dis, Faintness, Syncope, Claudication Gastroenterology: Negative: Abdominal Pain, Nausea, Vomiting, Anorexia, Indigestion, Difficulty Swallowing, Heartburn, Constipation, Diarrhea, Blood in Stools, Change in Bowel Habits Genital - Urinary: Negative: Dysuria, Hematuria Musculoskeletal: Negative: Joint Pain, Osteoporosis, Low Back Pain, Joint Deformities Endocrinology: Positive: Obesity, Diabetes Negative: Calluses, Polydipsia, Polyuria Hematologic/Lymphatic: Positive: Use of Antiplatelet Drugs Negative: Hx Leukemia, Hx Lymphoma, Use of Anticoagulant Neurology: Negative: Headaches, Migraines, Change in Vision, Diplopia, Dizziness, Change in Memory, Change in Speech, Change in Sphincter Function, Hx of Stroke\ TIA, Hx Seizures Psychiatry: Negative: Depressed Mood, Adhedonia, Hypomania, Eating Disorders Allergic/Immunologic: Negative: Hx Anaphylaxis, Hx Environmental Allergies, Hx Seasonal Allergies, Hx HIV Review of Systems Statement: All other review of systems negative, unless stated above. Objective Vital Signs: Temp Pulse Resp BP Pulse Ox 97.6 F 96 16 139/86 97 08/14/16 07:48 08/14/16 07:48 08/14/16 08:00 08/14/16 07:48 08/14/16 07:48 Oxygen Devices in Use Now: Nasal Cannula Appearance: NAD, chronically ill appearing, pleasant Neck: Trachea Midline, - - uncertain jvp Respiratory: Symmetrical Chest Expansion and Respiratory Effort, Clear to Auscultation Cardiovascular: RRR, - - s/p right bka, mild left edema, no significant murmur Abdominal: NL Sounds; No Tenderness; No Distention Extremities: No Clubbing, Cyanosis Skin: No Rash or Ulcers Neurological: Alert and Oriented x 3 Laboratory Results: 08/14/16 07:23 08/14/16 07:23 INR (Anticoag Therapy) 0.95 (0.89-1.11) 08/13/16 22:20 APTT 23.3 seconds (26.0-36.3) L 08/13/16 22:20 Total Bilirubin 0.50 mg/dL (0.2-1.0) 08/13/16 22:20 AST 17 U/L (13-39) 08/13/16 22:20 ALT 16 U/L (7-52) 08/13/16 22:20 Alkaline Phosphatase 71 U/L (34-104) 08/13/16 22:20 CK-MB (CK-2) 4.7 ng/mL (0.6-6.3) 08/13/16 22:20 B-Natriuretic Peptide 410 pg/mL (-100) H 08/13/16 22:20 Total Protein 6.8 g/dL (6.4-8.9) 08/13/16 22:20 Albumin 3.5 g/dL (3.2-5.2) 08/13/16 22:20 Globulin 3.3 g/dL (2-4) 08/13/16 22:20 Albumin/Globulin Ratio 1.1 (1-3) 08/13/16 22:20 TSH 4.55 mcIU/mL (0.34-5.60) 08/13/16 22:20 08/14/16 07:23 Troponin I 0.16 H* Diagnostic Imaging: TTE 12/2014: Moderate LVH, basal inferolateral hypokinesis, LA mildly dilated NM stress test 03/2012: No infarction, moderate inferior ischemia Cath 07/2009: LM no major disease, LAD diffuse non-obstructive disease, mid 90% Lcx lesion, dominant RCA with 80-90% disease at crux, LV gram with inferoposterior lateral hypokinesis, LVEF 30%. Received PCI to Lcx EKG Data: EKG 08/14/2016: NSR, LBBB (old), grouped beating consider conducted PAC's with pauses vs. AV malcolm disease Assessment/Plan Mr Camargo is 75 year old man with a history of CAD s/p PCI with known unrevascularized obstructive distal RCA disease, HF with a mildly reduced LVEF not currently on a loop diuretic, CKD, chronic prednisone use for sarcoidosis, DM, HTN, VT in the past on low dose amiodarone admitted with acute on chronic decompensated heart failure with stable renal function. 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 Likely demand related ischemia from decompensated HF in the setting of known obstructive CAD and LVH. No evidence of a primary type 1 plaque disruption [place] - If LVEF significantly reduced would add an AceI if ok from a Nephrology standpoint - If BP remains elevated or high normal after fully diuresed and LVEF not significantly reduced would add 30 mg of imdur for a coronary vasodilator Thank you for allowing me to participate in the cardiovacular care of this patient. Please do not hesitate to contact me with questions or concerns.
[2016-08-14] MEDS: Cetirizine* 10 MG TAB PO SCH (17:26)
[2016-08-14] MEDS: Atorvastatin* 10 MG TAB PO SCH (20:17)
[2016-08-14] MEDS: Finasteride TAB* 5 MG PO SCH (20:18)
[2016-08-15] MEDS: Levothyroxine TAB* 100 MCG TAB PO SCH (05:20)
[2016-08-15] MEDS: Levothyroxine TAB* 75 MCG TAB PO SCH (05:20)
[2016-08-15] MEDS: Heparin VIAL(*) 5000 UNITS/ML VIAL (FIVE THOUSAND) SUBCUT SCH ×3 (05:21→21:05)
[2016-08-15] MEDS: CMCS: Pantoprazole TAB (NF) 40 MG TAB PO SCH (05:21)
[2016-08-15] MEDS: Acetaminophen TAB* 325 MG PO PRN (05:24)
[2016-08-15] MEDS: Tiotropium CAP.INH* CAP.INH/18 MCG (USE ORDER SET !) INH SCH (07:43)
[2016-08-15] MEDS: Mometasone/Formoter 200/5 MDI INH SCH ×2 (07:43→20:16)
[2016-08-15] MEDS: Insulin LISPRO* 1 UNITS UNIT SUBCUT SCH ×7 (08:44→20:24)
[2016-08-15 09:11] LABS: BUN/Creatinine Ratio 23.7 (8-20); Calcium 8.8 mg/dL (8.6-10.3); EGFR African American 38.8 (>60); EGFR Non-African American 30.2 (>60); Potassium 3.9 mmol/L (3.5-5.0)
[2016-08-15] MEDS: predniSONE TAB* 10 MG PO SCH (09:38)
[2016-08-15] MEDS: Docusate CAP* 100 MG PO SCH ×2 (09:38→20:23)
[2016-08-15] MEDS: Clopidogrel TAB* 75 MG PO SCH (09:38)
[2016-08-15] MEDS: Aspirin Low Dose CHEW TAB* 81 MG PO SCH (09:38)
[2016-08-15] MEDS: Carvedilol TAB* 6.25 MG PO SCH ×2 (09:38→17:35)
[2016-08-15] MEDS: DOXYcycline CAP(*) 100 MG PO SCH ×2 (09:38→20:23)
[2016-08-15] MEDS: Amiodarone TAB* 200 MG PO SCH (09:39)
[2016-08-15] MEDS: Insulin GLARGINE(*) 1 UNITS UNIT SUBCUT SCH (09:41)
[2016-08-15] MEDS: Furosemide IV* 10 MG/ML 10 ML VIAL (100 MG) IV SCH (10:44)
--- NOTE | 2016-08-15 11:28 | PN ---
Subjective Date of Service: 08/15/16 Interval History: Patient reports no new issues this morning. Says he thinks his breathing feels a bit better, would like O2 off. Urinated a lot yesterday. No chest pain. Family History: Unchanged from Admission Social History: Unchanged from Admission Past Medical History: Unchanged from Admission Objective Active Medications: Acetaminophen (Tylenol Tab*) 650 mg PO Q6H PRN Amiodarone HCl (Cordarone Tab*) 100 mg PO DAILY [facility] Aspirin (Aspirin Low Dose Tab*) 81 mg PO DAILY [facility] Atorvastatin Calcium (Lipitor*) 10 mg PO BEDTIME [facility] Carvedilol (Coreg Tab*) 12.5 mg PO BID WITH MEALS [facility] Cetirizine HCl (Zyrtec*) 10 mg PO QPM [facility] Clopidogrel Bisulfate (Plavix Tab*) 75 mg PO DAILY [facility] Docusate Sodium (Colace Cap*) 200 mg PO BID [facility] Doxycycline Hyclate (Vibramycin Cap(*)) 100 mg PO BID [facility] Finasteride (Proscar Tab*) 5 mg PO BEDTIME [facility] Heparin Sodium (Porcine) (Heparin Vial(*)) 5,000 units SUBCUT Q8HR [facility] Insulin Glargine (Lantus(*)) 35 units SUBCUT 0900 [facility] Insulin Human Lispro (Humalog*) 0 units SUBCUT AC [facility] Insulin Human Lispro (Humalog*) 0 units SUBCUT ACHS [facility] Ipratropium [place] (Atrovent 0.5 Mg Neb.Shari*) 0.5 mg INH Q4H PRN Levothyroxine Sodium (Synthroid Tab*) 100 mcg PO MoTuWeThFrSa@0600 [facility] Levothyroxine Sodium (Synthroid Tab*) 75 mcg PO MoTuWeThFrSa@0600 [facility] Melatonin (Melatonin (Nf)) 3 mg PO BEDTIME PRN; Protocol Mometasone Furoate/Formoterol Fumar (Dulera 200/5 Mdi*) 2 puff INH BID [facility] Morphine Sulfate (Morphine Inj (Syringe)*) 2 mg IV Q4H PRN Ondansetron HCl (Zofran Inj*) 4 mg IV Q6H PRN Pantoprazole Sodium (Protonix Tab (Nf)) 40 mg PO DAILY@0600 [facility] Prednisone (Deltasone Tab*) 10 mg PO DAILY WITH MEAL [facility] Tiotropium [place] (Spiriva Cap.Inh*) 1 cap INH DAILY [facility] Vital Signs 08/14/16 08/14/16 08/14/16 11:38 15:27 19:29 Temperature 98.1 F 97.8 F Pulse Rate 61 70 68 Respiratory 16 18 20 Rate Blood Pressure 119/50 130/69 (mmHg) O2 Sat by Pulse 94 98 98 Oximetry 08/14/16 08/14/16 08/14/16 19:34 19:50 23:24 Temperature 98.1 F 99.3 F Pulse Rate 67 65 Respiratory 16 16 16 Rate Blood Pressure 144/62 144/71 (mmHg) O2 Sat by Pulse 95 98 Oximetry 08/15/16 08/15/16 08/15/16 00:30 03:41 07:49 Temperature 99.2 F Pulse Rate 68 35 63 Respiratory 20 20 20 Rate Blood Pressure 149/79 (mmHg) O2 Sat by Pulse 98 99 93 Oximetry Oxygen Devices in Use Now: Nasal Cannula Appearance: Elderly, M, laying in bed in NAD Eyes: No Scleral Icterus Ears/Nose/Mouth/Throat: Mucous Membranes Moist Neck: NL Appearance and Movements; NL JVP Respiratory: Symmetrical Chest Expansion and Respiratory Effort, Clear to Auscultation Cardiovascular: NL Sounds; No Murmurs; No JVD, RRR Abdominal: NL Sounds; No Tenderness; No Distention Lymphatic: No Cervical Adenopathy Extremities: - - RLE BKA, LLE with significant edema to low abdomen Skin: No Rash or Ulcers Neurological: Alert and Oriented x 3 Result Diagrams: 08/14/16 07:23 08/15/16 08:38 Microbiology and Other Data: Microbiology 08/14/16 07:35 Aerobic Blood Culture - Preliminary Blood Venous No Growth Day 1 Anaerobic Blood Culture - Preliminary No Growth Day 1 Assess/Plan/Problems-Billing Assessment: Acute combined hypoxic and hypercarbic respiratory failure 2/2 acute on chronic systolic CHF exacerbation in a 75 yo M with hx of sCHF, CAD s/p CO, HTN, HLD, DM , sarcoidosis with renal involvement, CKD, hypothyroidism, - Patient Problems (1) Acute on chronic systolic (congestive) heart failure Current Visit: Yes Comment: Improvement in respiratory status after BIPAP and Lasix. Holding Lasix this morning with increase in creatinine. Strict I/O. Appreciate Cardiology assistance. Continue Coreg. Troponin elevation likely due to acute CHF, peaked at 0.16. Echo pending. (2) Acute respiratory failure with hypoxia and hypercapnia Current Visit: Yes Comment: Improving, no longer hypercarbic. O2 weaned to 2L , continue to wean as able. (3) CAD (coronary artery disease) Current Visit: No Comment: Cont ASA/Plavix/statin. (4) HTN (hypertension) Current Visit: No Comment: Continue home Coreg (5) Hypothyroid Current Visit: No Comment: Continue home synthroid (6) CKD (chronic kidney disease) stage 3, GFR 30-59 ml/min Current Visit: No Comment: 2/2 renal sarcoid. Creat up a bit, likely from IV Lasix. Recheck BMP this afternoon. (7) Chronic mastoiditis Current Visit: Yes Comment: Continue home doxycyline (8) Leukocytosis Current Visit: Yes Comment: chronic, s/p splenectomy (9) Diabetes Current Visit: Yes Comment: Decrease Lantus further to 25 units daily, continue HISS (10) Sarcoidosis Current Visit: No Comment: On chronic prednisone at home. (11) DVT prophylaxis Current Visit: No Comment: heparin sc (12) DNR (do not resuscitate) Current Visit: Yes Status and Disposition: Inpatient for IV diuresis
--- NOTE | 2016-08-15 16:13 | ECHO ---
Patient: FLORA VILLALPANDO [facility] Rec#: [id number] : 1940 Date: 08/15/2016 Age: 75y Height: 182.88 cm / 72.0 in Weight: 136.08 kg / 299.9 lbs Sex: M BSA: 2.53 Room#: 439 Admit Date#: 08/14/2016 Type: Inpatient Referring: Joseph Wyatt MD Reading: Jerry Mukherjee MD Boat Engine Mechanic: Brittaney Mendoza [facility] CC: Sandra Forrester MD Transthoracic Echocardiogram Indication: Diastolic CHF BP: 104/72 HR: 71 Rhythm: NSR with PACs Findings History: CAD,CHF,PCI,PVD,PAD,HTN,DM,PAF,sarcoidosis. Technical Comments: The study is technically limited due to poor apical windows. The study is technically limited due to patient body habitus. Completed at 1530. The study was technically limited due to the patient's inability to lay in the left lateral decubitus position. Left Ventricle: The left ventricular chamber size is normal. Moderate concentric left ventricular hypertrophy is observed. Left ventricular systolic function is at the lower limits of normal. The estimated ejection fraction is 45-50%. The assessment of diastolic function is non-diagnostic. The basal inferolateral, basal inferior, and mid inferolateral wall segments are hypokinetic (score 2). Overall wallmotion score index is 2.00 Left Atrium: The left atrial chamber size is normal. Right Ventricle: The right ventricular cavity size is normal. The right ventricular global systolic function is normal. Right Atrium: The right atrial cavity size is normal. Aortic Valve: The aortic valve is trileaflet. The aortic valve leaflets are mildly thickened. There is evidence of aortic sclerosis without stenosis. There is no evidence of aortic regurgitation. There is no evidence of aortic stenosis. Mitral Valve: The mitral valve leaflets are mildly thickened. There is a trace of mitral regurgitation. There is no evidence of mitral stenosis. Tricuspid Valve: The tricuspid valve structure is not well visualized. Pulmonic Valve: The pulmonic valve appears normal. There is no evidence of pulmonic regurgitation. There is no pulmonic stenosis. Pericardium: There is no pericardial effusion. A pericardial fat pad is visualized. Aorta: There is mild dilatation of the ascending aorta.(4.0 cm) There is no dilatation of the aortic arch. There is mild dilatation of the aortic root. Pulmonary Artery: The main pulmonary artery appears normal. Venous: The venous system is not well visualized. Summary: There are no significant changes when compared to the previous study done on 01/06/15 Conclusions Moderate concentric left ventricular hypertrophy is observed. Left ventricular systolic function is at the lower limits of normal. The estimated ejection fraction is 45-50%. The basal inferolateral, basal inferior, and mid inferolateral wall segments are hypokinetic (score 2). The right ventricular global systolic function is normal. There is evidence of aortic sclerosis without stenosis. There is no evidence of aortic regurgitation. There is a trace of mitral regurgitation. The tricuspid valve structure is not well visualized. There is no pericardial effusion. There is mild dilatation of the ascending aorta.(4.0 cm) Measurements Name Value Normal Range RVIDd (AP) 2D 3.1 cm (0.9 - 2.6) RVDdMajor (2D) 2.8 cm (2.2 - 4.4) RAd ISD 4CH 4.4 cm (3.4 - 4.9) RA (A4C)W 3.6 cm (2.9 - 4.6) IVSd (2D) 1.8 cm (0.6 - 1) LVPWd (2D) 1.2 cm (0.6 - 1) LVIDd (2D) 5.1 cm (3.6 - 5.4) LVIDs (2D) 4.2 cm - LV FS (2D) 18 % (25 - 45) Aortic Annulus 2.7 cm (1.4 - 2.6) Ao root diameter (2D) 4 cm (2.1 - 3.5) Ascending Ao 4 cm (2.1 - 3.4) Aortic arch 2.8 cm (1.8 - 3.4) Descending Ao 0.5 cm - LA dimension (AP) 2D 3.7 cm (2.3 - 3.8) LAd ISD 4CH 4 cm (2.9 - 5.3) LA ISD 4CH W 4.3 cm (2.5 - 4.5) Name Value Normal Range MV E-wave Vmax 0.8 m/sec - MV deceleration time 239 msec - MV A-wave Vmax 0.3 m/sec - MV E:A ratio 103 ratio - LV septal e' Vmax 0.04 m/sec - LV lateral e' Vmax 0.07 m/sec - LV E:e' septal ratio 20 ratio - LV E:e' lateral ratio 11.42 ratio - Name Value Normal Range AV Vmax 1.4 m/sec - AV VTI 31.1 cm - AV peak gradient 8.24 mmHg - AV mean gradient 4.56 mmHg - LVOT Vmax 0.7 m/sec - LVOT VTI 14.9 cm - LVOT peak gradient 2.02 mmHg - LVOT mean gradient 0.87 mmHg - Name Value Normal Range PV Vmax 0.7 m/sec - PV peak gradient 2 mmHg - Wallmotion BAS Not Seen BA Not Seen BAL Not Seen SALEEM Hypokinetic BI Hypokinetic BIS Not Seen MAS Not Seen MA Not Seen MAL Not Seen MIL Hypokinetic OK Not Seen MIS Not Seen Not Seen AA Not Seen AL Not Seen AI Not Seen APEX Not Seen
[2016-08-15 16:14] LABS: BUN/Creatinine Ratio 23.9 (8-20); Calcium 8.8 mg/dL (8.6-10.3); EGFR African American 33.1 (>60); EGFR Non-African American 25.7 (>60); Potassium 5.3 mmol/L (3.5-5.0)
[2016-08-15] MEDS: Cetirizine* 10 MG TAB PO SCH (17:35)
[2016-08-15] MEDS: Atorvastatin* 10 MG TAB PO SCH (20:22)
[2016-08-15] MEDS: Finasteride TAB* 5 MG PO SCH (20:23)
[2016-08-16] MEDS: CMCS: Pantoprazole TAB (NF) 40 MG TAB PO SCH (05:10)
[2016-08-16] MEDS: Levothyroxine TAB* 75 MCG TAB PO SCH (05:11)
[2016-08-16] MEDS: Levothyroxine TAB* 100 MCG TAB PO SCH (05:11)
[2016-08-16] MEDS: Heparin VIAL(*) 5000 UNITS/ML VIAL (FIVE THOUSAND) SUBCUT SCH ×3 (05:12→21:00)
[2016-08-16 06:56] LABS: BUN/Creatinine Ratio 25.8 (8-20); Calcium 8.7 mg/dL (8.6-10.3); EGFR African American 36.8 (>60); EGFR Non-African American 28.7 (>60); Potassium 4.3 mmol/L (3.5-5.0)
[2016-08-16] MEDS: Carvedilol TAB* 6.25 MG PO SCH ×2 (08:13→17:48)
[2016-08-16] MEDS: Docusate CAP* 100 MG PO SCH ×2 (08:13→20:15)
[2016-08-16] MEDS: Clopidogrel TAB* 75 MG PO SCH (08:14)
[2016-08-16] MEDS: Aspirin Low Dose CHEW TAB* 81 MG PO SCH (08:14)
[2016-08-16] MEDS: DOXYcycline CAP(*) 100 MG PO SCH ×2 (08:14→20:16)
[2016-08-16] MEDS: Amiodarone TAB* 200 MG PO SCH (08:14)
[2016-08-16] MEDS: predniSONE TAB* 10 MG PO SCH (08:14)
[2016-08-16] MEDS: Insulin LISPRO* 1 UNITS UNIT SUBCUT SCH ×7 (08:15→20:30)
[2016-08-16] MEDS: Tiotropium CAP.INH* CAP.INH/18 MCG (USE ORDER SET !) INH SCH (08:50)
[2016-08-16] MEDS: Mometasone/Formoter 200/5 MDI INH SCH ×2 (08:50→20:36)
[2016-08-16] MEDS: Insulin GLARGINE(*) 1 UNITS UNIT SUBCUT SCH (09:46)
--- NOTE | 2016-08-16 17:42 | PN ---
Subjective Date of Service: 08/16/16 Interval History: Patient seen and examined at bedside. Pt states that he is feeling well, but his weight is up 3 lbs from yesterday. Pt is unsure if he may have had extra blankets on when he was weighted today. Reports urinating without difficulty. Denies fever, chills, shortness of breath, chest discomfort, N/V/D or urinary symptoms. Tele: Sinus arrhythmia, rate 60-70's. Family History: Unchanged from Admission Social History: Unchanged from Admission Past Medical History: Unchanged from Admission Objective Active Medications: Acetaminophen (Tylenol Tab*) 650 mg PO Q6H PRN Reason: FEVER/PAIN Amiodarone HCl (Cordarone Tab*) 100 mg PO DAILY [facility] Aspirin (Aspirin Low Dose Tab*) 81 mg PO DAILY [facility] Atorvastatin Calcium (Lipitor*) 10 mg PO BEDTIME [facility] Carvedilol (Coreg Tab*) 12.5 mg PO BID WITH MEALS [facility] Cetirizine HCl (Zyrtec*) 10 mg PO QPM [facility] Clopidogrel Bisulfate (Plavix Tab*) 75 mg PO DAILY [facility] Docusate Sodium (Colace Cap*) 200 mg PO BID [facility] Doxycycline Hyclate (Vibramycin Cap(*)) 100 mg PO BID [facility] Finasteride (Proscar Tab*) 5 mg PO BEDTIME [facility] Heparin Sodium (Porcine) (Heparin Vial(*)) 5,000 units SUBCUT Q8HR [facility] Insulin Glargine (Lantus(*)) 25 units SUBCUT 0900 [facility] Insulin Human Lispro (Humalog*) 0 units SUBCUT AC [facility] Insulin Human Lispro (Humalog*) 0 units SUBCUT ACHS [facility] Ipratropium [place] (Atrovent 0.5 Mg Neb.Shari*) 0.5 mg INH Q4H PRN Reason: SOB/ WHEEZING Levothyroxine Sodium (Synthroid Tab*) 100 mcg PO MoTuWeThFrSa@0600 [facility] Levothyroxine Sodium (Synthroid Tab*) 75 mcg PO MoTuWeThFrSa@0600 [facility] Melatonin (Melatonin (Nf)) 3 mg PO BEDTIME PRN; Protocol Reason: Sleep Mometasone Furoate/Formoterol Fumar (Dulera 200/5 Mdi*) 2 puff INH BID [facility] Morphine Sulfate (Morphine Inj (Syringe)*) 2 mg IV Q4H PRN Reason: SOB/WHEEZING Ondansetron HCl (Zofran Inj*) 4 mg IV Q6H PRN Reason: NAUSEA Pantoprazole Sodium (Protonix Tab (Nf)) 40 mg PO DAILY@0600 [facility] Prednisone (Deltasone Tab*) 10 mg PO DAILY WITH MEAL [facility] Tiotropium [place] (Spiriva Cap.Inh*) 1 cap INH DAILY [facility] Vital Signs 08/15/16 08/15/16 08/15/16 18:46 19:35 20:18 Temperature 97.9 F Pulse Rate 78 63 Respiratory 20 20 20 Rate Blood Pressure 131/56 (mmHg) O2 Sat by Pulse 92 96 Oximetry 08/16/16 08/16/16 08/16/16 00:05 02:21 04:06 Temperature 98.3 F 98.1 F Pulse Rate 23 55 Respiratory 16 16 Rate Blood Pressure 142/70 139/73 (mmHg) O2 Sat by Pulse 96 96 97 Oximetry 08/16/16 08/16/16 08/16/16 07:34 07:46 08:50 Temperature 98.3 F Pulse Rate 63 81 Respiratory 16 16 18 Rate Blood Pressure 137/62 (mmHg) O2 Sat by Pulse 97 95 Oximetry 08/16/16 08/16/16 11:21 16:37 Temperature 98.2 F Pulse Rate 94 Respiratory 16 Rate Blood Pressure 128/59 (mmHg) O2 Sat by Pulse 89 94 Oximetry Oxygen Devices in Use Now: Nasal Cannula - 2 L Appearance: NAD, sitting up in bed. Eyes: No Scleral Icterus, PERRLA Ears/Nose/Mouth/Throat: NL Teeth, Lips, Gums, Mucous Membranes Moist Neck: NL Appearance and Movements; NL JVP, Trachea Midline Respiratory: Symmetrical Chest Expansion and Respiratory Effort, Clear to Auscultation - , diminished Cardiovascular: - - Heart rate irregular Extremities: - - 2+ edema to left foot Skin: No Rash or Ulcers Neurological: Alert and Oriented x 3 Lines/Tubes/Other Access: Clean, Dry and Intact Peripheral IV - site benign Nutrition: Taking PO's Result Diagrams: 08/14/16 07:23 08/16/16 05:37 Microbiology and Other Data: Microbiology 08/14/16 07:35 Aerobic Blood Culture - Preliminary Blood Venous No Growth Day 1 Anaerobic Blood Culture - Preliminary No Growth Day 1 Microbiology 08/13/16 23:50 Urine Urine Culture - Final Proteus Mirabilis Assess/Plan/Problems-Billing Assessment: Mr. Camargo is a 75 yo M with hx of sCHF, CAD s/p [place], HTN, HLD, DM, sarcoidosis with renal involvement, CKD, hypothyroidism who was admitted for acute combined hypoxic and hypercarbic respiratory failure 2/2 acute on chronic systolic CHF exacerbation. - Patient Problems (1) Acute on chronic systolic (congestive) heart failure Code(s): I50.23 - ACUTE ON CHRONIC SYSTOLIC (CONGESTIVE) HEART FAILURE SNOMED Code(s): 679154982 Comment: - Improvement in respiratory status after BIPAP and Lasix. - Holding Lasix in setting of increase in creatinine. - Troponin elevation likely due to acute CHF, peaked at 0.16. - Echo - moderate cocentric LVH, EF 45-50, basal inferolateral, basal inferior, and mid inferolateral wall segments are hypokinetic. - Strict I/O and daily weights. - Appreciate Cardiology assistance. - Continue Coreg. (2) Acute respiratory failure with hypoxia and hypercapnia Code(s): J96.01 - ACUTE RESPIRATORY FAILURE WITH HYPOXIA; J96.02 - ACUTE RESPIRATORY FAILURE WITH HYPERCAPNIA SNOMED Code(s): 39976901 Comment: - Improving, no longer hypercarbic. - O2 weaned to 2L, continue to wean as able. (3) CKD (chronic kidney disease) stage 3, GFR 30-59 ml/min Code(s): N18.3 - CHRONIC KIDNEY DISEASE, STAGE 3 (MODERATE) SNOMED Code(s): 179022134 Comment: - R/T renal sarcoid. - Creatinine up a bit, likely from IV Lasix. Improving after stopping lasix - Recheck Creatinine in the AM (4) Diabetes Code(s): E11.9 - TYPE 2 DIABETES MELLITUS WITHOUT COMPLICATIONS SNOMED Code(s) : 08387582 Comment: - Glucose 90-170's - Continue Lantus 25 units daily and Lispro SS (5) CAD (coronary artery disease) Code(s): I25.10 - ATHSCL HEART DISEASE OF [place] CORONARY ARTERY W/O ANG PCTRS SNOMED Code(s): 49725985 Comment: - Asymptomatic - Continue ASA, Plavix, and statin. (6) HTN (hypertension) Code(s): I10 - ESSENTIAL (PRIMARY) HYPERTENSION SNOMED Code(s): 23618713 Comment: - SBP 120-140's - Continue home Coreg (7) Chronic mastoiditis Code(s): H70.10 - CHRONIC MASTOIDITIS, UNSPECIFIED EAR SNOMED Code(s): 26492936 Comment: Continue home doxycyline (8) Leukocytosis Code(s): D72.829 - ELEVATED WHITE BLOOD CELL COUNT, UNSPECIFIED SNOMED Code(s) : 765893650 Comment: - chronic, s/p splenectomy (9) Hypothyroid Code(s): E03.9 - HYPOTHYROIDISM, UNSPECIFIED SNOMED Code(s): 85976010 Comment: - TSH 4.55 - Continue home synthroid (10) Sarcoidosis Code(s): D86.9 - SARCOIDOSIS, UNSPECIFIED SNOMED Code(s): 25521122 Comment: On chronic prednisone at home. (11) DVT prophylaxis Code(s): IAC5235 - SNOMED Code(s): 446607848 Comment: Continue SQ heparin (12) DNR (do not resuscitate) Status and Disposition: Inpatient. Plan for discharge back to [facility] when medically stable.
[2016-08-16] MEDS: Cetirizine* 10 MG TAB PO SCH (17:48)
[2016-08-16] MEDS: Atorvastatin* 10 MG TAB PO SCH (20:15)
[2016-08-16] MEDS: Amoxicillin/Clavulanate TAB* 500 MG PO SCH (20:16)
[2016-08-16] MEDS: Finasteride TAB* 5 MG PO SCH (20:16)
[2016-08-16] MEDS: Acetaminophen TAB* 325 MG PO PRN (20:18)
[2016-08-17 05:00] LABS: Hematocrit 29 % (42-52); Hemoglobin 9.2 g/dl (14.0-18.0); Mean Corpuscular HGB Conc 32 g/dl (31-36); Mean Corpuscular Hemoglobin 26 pg (27-31); Mean Corpuscular Volume 82 fL (80-94); Mean Platelet Volume 10 um3 (7.4-10.4); Red Blood Count 3.56 10^6/ul (4.0-5.4); Red Cell Distribution Width 17 % (10.5-15); White Blood Count 13.9 10^3/ul (3.5-10.8)
[2016-08-17] MEDS: Levothyroxine TAB* 75 MCG TAB PO SCH (05:19)
[2016-08-17] MEDS: Levothyroxine TAB* 100 MCG TAB PO SCH (05:20)
[2016-08-17] MEDS: CMCS: Pantoprazole TAB (NF) 40 MG TAB PO SCH (05:21)
[2016-08-17 05:22] LABS: BUN/Creatinine Ratio 28.4 (8-20); Calcium 8.8 mg/dL (8.6-10.3); EGFR Non-African American 32.6 (>60); Potassium 4.2 mmol/L (3.5-5.0)
[2016-08-17] MEDS: Heparin VIAL(*) 5000 UNITS/ML VIAL (FIVE THOUSAND) SUBCUT SCH (05:28)
[2016-08-17] MEDS: Insulin LISPRO* 1 UNITS UNIT SUBCUT SCH ×4 (08:16→12:38)
[2016-08-17] MEDS: Tiotropium CAP.INH* CAP.INH/18 MCG (USE ORDER SET !) INH SCH (08:41)
[2016-08-17] MEDS: Mometasone/Formoter 200/5 MDI INH SCH (08:41)
[2016-08-17] MEDS: Clopidogrel TAB* 75 MG PO SCH (08:56)
[2016-08-17] MEDS: Docusate CAP* 100 MG PO SCH (08:56)
[2016-08-17] MEDS: Aspirin Low Dose CHEW TAB* 81 MG PO SCH (08:56)
[2016-08-17] MEDS: Amiodarone TAB* 200 MG PO SCH (08:56)
[2016-08-17] MEDS: predniSONE TAB* 10 MG PO SCH (08:56)
[2016-08-17] MEDS: DOXYcycline CAP(*) 100 MG PO SCH (08:56)
[2016-08-17] MEDS: Amoxicillin/Clavulanate TAB* 500 MG PO SCH (08:56)
[2016-08-17] MEDS: Insulin GLARGINE(*) 1 UNITS UNIT SUBCUT SCH (08:57)
[2016-08-17] MEDS: Carvedilol TAB* 6.25 MG PO SCH (08:57)
--- NOTE | 2016-08-17 10:44 | PN ---
Subjective Date of Service: 08/17/16 Interval History: Patient seen and examined at bedside. Pt states that he is feeling better today. Denies fever, chills, shortness of breath, chest discomfort, N/V/D. Pt is happy that his weight is down today. Tele: Sinus arrhythmia, rate 60-70's. Family History: Unchanged from Admission Social History: Unchanged from Admission Past Medical History: Unchanged from Admission Objective Active Medications: Acetaminophen (Tylenol Tab*) 650 mg PO Q6H PRN Reason: FEVER/PAIN Amiodarone HCl (Cordarone Tab*) 100 mg PO DAILY [facility] Amoxicillin/Clavulanate Potassium (Augmentin Tab*) 500 mg PO BID [facility] Stop: 20:59 Aspirin (Aspirin Low Dose Tab*) 81 mg PO DAILY [facility] Atorvastatin Calcium (Lipitor*) 10 mg PO BEDTIME [facility] Carvedilol (Coreg Tab*) 12.5 mg PO BID WITH MEALS [facility] Cetirizine HCl (Zyrtec*) 10 mg PO QPM [facility] Clopidogrel Bisulfate (Plavix Tab*) 75 mg PO DAILY [facility] Docusate Sodium (Colace Cap*) 200 mg PO BID [facility] Doxycycline Hyclate (Vibramycin Cap(*)) 100 mg PO BID [facility] Finasteride (Proscar Tab*) 5 mg PO BEDTIME [facility] Heparin Sodium (Porcine) (Heparin Vial(*)) 5,000 units SUBCUT Q8HR [facility] Insulin Glargine (Lantus(*)) 25 units SUBCUT 0900 [facility] Insulin Human Lispro (Humalog*) 0 units SUBCUT AC [facility] Reason: Protocol Insulin Human Lispro (Humalog*) 0 units SUBCUT ACHS [facility] Ipratropium [place] (Atrovent 0.5 Mg Neb.Shari*) 0.5 mg INH Q4H PRN Reason: SOB/ WHEEZING Levothyroxine Sodium (Synthroid Tab*) 100 mcg PO MoTuWeThFrSa@0600 [facility] Levothyroxine Sodium (Synthroid Tab*) 75 mcg PO MoTuWeThFrSa@0600 [facility] Melatonin (Melatonin (Nf)) 3 mg PO BEDTIME PRN; Protocol Reason: Sleep Mometasone Furoate/Formoterol Fumar (Dulera 200/5 Mdi*) 2 puff INH BID [facility] Morphine Sulfate (Morphine Inj (Syringe)*) 2 mg IV Q4H PRN Reason: SOB/WHEEZING Ondansetron HCl (Zofran Inj*) 4 mg IV Q6H PRN Reason: NAUSEA Pantoprazole Sodium (Protonix Tab (Nf)) 40 mg PO DAILY@0600 [facility] Prednisone (Deltasone Tab*) 10 mg PO DAILY WITH MEAL [facility] Tiotropium [place] (Spiriva Cap.Inh*) 1 cap INH DAILY [facility] Vital Signs 08/16/16 08/16/16 08/16/16 11:21 15:43 16:37 Temperature 98.2 F 98.0 F Pulse Rate 94 65 Respiratory 16 18 Rate Blood Pressure 128/59 138/79 (mmHg) O2 Sat by Pulse 89 100 94 Oximetry 08/16/16 08/16/16 08/16/16 18:40 19:51 20:38 Temperature 97.8 F Pulse Rate 70 70 Respiratory 16 18 16 Rate Blood Pressure 154/74 (mmHg) O2 Sat by Pulse 97 97 Oximetry 08/16/16 08/17/16 08/17/16 23:54 00:22 04:06 Temperature 98.7 F 98.1 F Pulse Rate 64 65 Respiratory 16 20 Rate Blood Pressure 136/53 143/67 (mmHg) O2 Sat by Pulse 96 97 99 Oximetry 08/17/16 08/17/16 08/17/16 07:34 07:47 08:43 Temperature 98.1 F Pulse Rate 69 65 Respiratory 16 18 14 Rate Blood Pressure 147/67 (mmHg) O2 Sat by Pulse 100 97 Oximetry Oxygen Devices in Use Now: Nasal Cannula - 1 L Appearance: NAD, sitting up in a chair. Eyes: No Scleral Icterus, PERRLA Ears/Nose/Mouth/Throat: NL Teeth, Lips, Gums, Mucous Membranes Moist Neck: NL Appearance and Movements; NL JVP, Trachea Midline Respiratory: Symmetrical Chest Expansion and Respiratory Effort, Clear to Auscultation Cardiovascular: - - Heart rate irregular Abdominal: NL Sounds; No Tenderness; No Distention - Bowel sounds present Extremities: - - 2+ edema to left foot, right BKA Skin: No Rash or Ulcers Neurological: Alert and Oriented x 3, NL Muscle Strength and Tone Lines/Tubes/Other Access: Clean, Dry and Intact Peripheral IV - site benign Nutrition: Taking PO's Result Diagrams: 08/17/16 04:22 08/17/16 04:25 Microbiology and Other Data: Microbiology 08/14/16 07:35 Aerobic Blood Culture - Preliminary Blood Venous No Growth Day 1 Anaerobic Blood Culture - Preliminary No Growth Day 1 Microbiology 08/13/16 23:50 Urine Urine Culture - Final Proteus Mirabilis Assess/Plan/Problems-Billing Assessment: Mr. Camargo is a 75 yo M with hx of sCHF, CAD s/p [place], HTN, HLD, DM, sarcoidosis with renal involvement, CKD, hypothyroidism who was admitted for acute combined hypoxic and hypercarbic respiratory failure 2/2 acute on chronic systolic CHF exacerbation. - Patient Problems (1) Acute on chronic systolic (congestive) heart failure Code(s): I50.23 - ACUTE ON CHRONIC SYSTOLIC (CONGESTIVE) HEART FAILURE SNOMED Code(s): 190592354 Comment: - Improvement in respiratory status after BIPAP and Lasix. - Holding Lasix in setting of increase in creatinine. - Troponin elevation likely due to acute CHF, peaked at 0.16. - Echo - moderate cocentric LVH, EF 45-50, basal inferolateral, basal inferior, and mid inferolateral wall segments are hypokinetic. - Strict I/O and daily weights. - Appreciate Cardiology assistance. - Continue Coreg. (2) Acute respiratory failure with hypoxia and hypercapnia Code(s): J96.01 - ACUTE RESPIRATORY FAILURE WITH HYPOXIA; J96.02 - ACUTE RESPIRATORY FAILURE WITH HYPERCAPNIA SNOMED Code(s): 34185869 Comment: - Improving, no longer hypercarbic. - O2 weaned to 1L, continue to wean as able. (3) UTI (urinary tract infection) Comment: - Asymptomatic - Afebrile, Pt has leukocytosis, but this is a chronic issue r/t splenectomy - Urine culture with Proteus Mirabilis - Started on Augmentin yesterday (4) CKD (chronic kidney disease) stage 3, GFR 30-59 ml/min Code(s): N18.3 - CHRONIC KIDNEY DISEASE, STAGE 3 (MODERATE) SNOMED Code(s): 829098468 Comment: - R/T renal sarcoid. - Creatinine up a bit, likely from IV Lasix. Improving after stopping lasix (5) Diabetes Code(s): E11.9 - TYPE 2 DIABETES MELLITUS WITHOUT COMPLICATIONS SNOMED Code(s) : 06811671 Comment: - Glucose 100-150's - Continue Lantus 25 units daily and Lispro SS (6) CAD (coronary artery disease) Code(s): I25.10 - ATHSCL HEART DISEASE OF [place] CORONARY ARTERY W/O ANG PCTRS SNOMED Code(s): 34560105 Comment: - Asymptomatic - Continue ASA, Plavix, and statin. (7) HTN (hypertension) Code(s): I10 - ESSENTIAL (PRIMARY) HYPERTENSION SNOMED Code(s): 29442073 Comment: - SBP 120-150's - Continue home Coreg (8) Chronic mastoiditis Code(s): H70.10 - CHRONIC MASTOIDITIS, UNSPECIFIED EAR SNOMED Code(s): 01366326 Comment: Continue home doxycyline (9) Leukocytosis Code(s): D72.829 - ELEVATED WHITE BLOOD CELL COUNT, UNSPECIFIED SNOMED Code(s) : 323492384 Comment: - chronic, s/p splenectomy (10) Hypothyroid Code(s): E03.9 - HYPOTHYROIDISM, UNSPECIFIED SNOMED Code(s): 28618829 Comment: - TSH 4.55 - Continue home synthroid (11) Sarcoidosis Code(s): D86.9 - SARCOIDOSIS, UNSPECIFIED SNOMED Code(s): 00314756 Comment: On chronic prednisone at home. (12) DVT prophylaxis Code(s): AQN9445 - SNOMED Code(s): 978717109 (13) DNR (do not resuscitate) Status and Disposition: Inpatient. Stable for discharge back to [facility] today.
[2016-08-17 12:44] VITALS: BP 136/56
--- NOTE | 2016-08-17 14:27 | DS ---
DISCHARGE SUMMARY: DATE OF ADMISSION: 08/14/16 DATE OF DISCHARGE: 08/17/16 ATTENDING PHYSICIAN: Dr. Karolina Latham* (dictated by Kaylie Catherine NP) PRIMARY CARE PROVIDER: Sandra Forrester MD PRIMARY DIAGNOSES: 1. Acute systolic heart failure exacerbation. 2. Resolved acute hypercapnic respiratory failure. 3. Proteus mirabilis urinary tract infection. SECONDARY DIAGNOSES: 1. Chronic kidney disease, stage 3. 2. Diabetes mellitus. 3. Coronary artery disease. 4. Hypertension. 5. Chronic mastoiditis. 6. Chronic leukocytosis. 7. Hypothyroidism. 8. Sarcoidosis. CONSULTATIONS WHILE IN HOSPITAL: Dr. Miah Shannon with Cardiology. STUDIES WHILE IN THE HOSPITAL: 1. Chest x-ray on 08/13/16. Radiologist's impression: Expiratory exam, small bibasilar infiltrates. 2. Transthoracic echocardiogram on 08/15/16. Cover Seamer's conclusion: There are no significant changes when compared to the previous study done on 01/05. Moderate concentric left ventricular hypertrophy is observed. Left ventricular systolic function is at the lower limit is normal. The estimated ejection fraction is 45% to 50%. The basal inferolateral, basal inferior and mild inferior lateral wall segments are hypokinetic (score 2). The left ventricular global systolic function is normal. There is evidence of aortic sclerosis without stenosis. There is no evidence of aortic regurgitation, trace of mild regurgitation, and tricuspid valve structure is not well visualized . There was no pericardial effusion. There is mild dilation of the ascending aorta at 4.0 cm. DISCHARGE MEDICATIONS: New home medications: 1. Augmentin 500 mg oral twice daily for 6 more days. 2. Dulera 200-5 MDI 2 puffs inhalation twice daily. 3. Spiriva 1 capsule inhalation daily. Continued home medications: 1. Percocet 5/325 one tablet oral every 4 hours as needed for pain. 2. Acetaminophen 650 mg oral every 4 hours as needed for fever or pain. 3. Atorvastatin 10 mg oral daily at bedtime. 4. Coreg 12.5 mg oral twice daily. 5. Protonix 40 mg oral daily. 6. Colace 200 mg oral daily. 7. Plavix 75 mg oral daily. 8. Aspirin 81 mg oral daily. 9. Amiodarone 100 mg oral daily. 10. NovoLog 0 to 15 units subcutaneous sliding scale before meals. 11. Vitamin D3 50,000 units oral monthly. 12. Levothyroxine 175 mcg oral every Monday, Monday, Monday, , Monday, and Monday. 13. Guaifenesin 400 mg oral twice daily as needed for congestion. 14. Proscar 5 mg oral daily at bedtime. 15. Milk of magnesia 30 mL oral daily as needed for constipation. 16. Doxycycline 100 mg oral twice daily. 17. Prednisone 10 mg oral daily. 18. Maalox oral every 4 hours as needed for indigestion. 19. Atrovent 0.5 mg nebs solution inhalation every 4 hours as needed for shortness of breath or wheeze. 20. Lactobacillus 10 mg tablet oral daily. 21. Claritin 10 mg oral daily. Changed medications: 1. Lantus 25 units subcutaneous daily. HISTORY OF PRESENT ILLNESS/HOSPITAL COURSE: Mr. Camargo is a 75-year-old male with past medical history significant for diastolic heart failure, diabetes mellitus, hypertension, who had been in his normal state of health when he gradually developed onset of progressive shortness of breath. The patient notified the staff at [facility] where he lives. They gave him a breathing treatment without improvement. The patient felt that he was continuing to worsen and EMS was called. The patient has denied any chest pain , palpitations, fevers, chills, cough, congestion, or other issues. It was reported that the patient had gained approximately 10 pounds in the few days prior to his progressing shortness of breath. While in the emergency room, the patient was placed on a BiPAP with initial ABG showing early hypercarbic respiratory failure. The patient received IV furosemide and was able to wean from the BiPAP with 1 hour post BiPAP ABG remaining normalized. The hospitalists were asked to evaluate the patient for admission. While in hospital, the patient was monitored on telemetry. He was noted to be in sinus arrhythmia with rates generally in the 60s to 70s. The patient was initially treated with IV Lasix, but when his creatinine elevated, the IV Lasix was discontinued. The patient's acute on chronic systolic heart failure continued to improve. His breathing improved. The patient was able to be weaned off of oxygen. It is noted that the patient had elevated troponin, peaking 0.16, this was felt to be demand ischemia and likely related to the patient's CHF exacerbation. The patient had an echo showing moderate concentric LVH with an EF of 45 to 50 with the basal inferolateral, basal inferior and mild inferolateral wall segment hypokinesis. The patient was continued on Coreg. The patient's hypercarbic respiratory failure resolved. The patient had urinalysis and urine culture that grew Proteus mirabilis, so the patient was started on Augmentin on 08/17/16. 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 The patient's renal function has improved after the discontinuation of Lasix. The patient's blood sugars have been relatively controlled during his stay. The patient was noted to have leukocytosis, this appeared to be a chronic issue. The patient is status post splenectomy and his white blood cell count has trended down from 18 on arrival to 13.9 on the day of discharge. As far as the patient's creatinine, his initial creatinine at admission was 1.79, picking at 2.47, and has decreased to 2.01 on the day of discharge. The patient states that he is feeling well. He denies any shortness of breath. Mr. Camargo is stable for discharge [facility] today. VITAL SIGNS: Are as follows; temperature 98.1, heart rate 65, respiratory rate 14, O2 sat 97% on 1 L of oxygen. DISCHARGE PLAN: Mr. Camargo will be discharged to [facility]. He should be activity as tolerated. The patient should be on a low sodium consistent carbohydrate diet. As far as medication changes, the patient's Lantus has been decreased from 50 units daily to 25 units subcutaneous daily. The patient has been placed on Augmentin twice daily for his urinary tract infection. He should receive this for 6 more days. The patient was also started on Dulera and Spiriva during his stay. The patient should follow with Dr. Forrester in the next week or two or per [facility]'s protocol. The patient should return to the emergency room for shortness of breath or chest discomfort. The patient' s CHF, his weight should be monitored. This is a summarized report of a complex medical history and hospital stay. For further details, please see the entire medical record. TIME SPENT: Time for this discharge was 50 minutes, 25 minutes were spent face- to- face with the patient discussing discharge plan and instructions. CONDITION ON DISCHARGE: Stable. Reviewed by YARITZA MEJIA 08/20/16 0958 CC: Sandra Forrester MD * [id number]/[facility] #: [id number] [place]
--- NOTE | 2016-09-05 20:28 | ED ---
Karrie Mccray Janilya, scribed for Abraham Richter MD on 08/13/16 at 2218 . Shortness of Breath - HPI Summary HPI Summary: A 75 y/o male was BIBA presenting w/ SOB that started today at 1900. Pt denies CP and fever. Pt does report productive cough. PMHx CHF in 1990. Pt is not on dialysis and does not take waterpills. Allergic to morphine. - History of Current Complaint Hx Obtained From: Patient Onset/Duration: Sudden Onset, Lasting Hours, Still Present Timing: Constant Current Severity: Moderate - Risk Factors Pulmonary Embolism: Negative Cardiac: CHF Pseudomonas: Negative Tuberculosis: Negative - Allergy/Home Medications Allergies/Adverse Reactions: Allergies Allergy/AdvReac Type Severity Reaction Status Date / Time No Known Allergies Allergy Verified 08/13/16 22:25 PMH/Surg Hx/FS Hx/Imm Hx Endocrine/Hematology History: Reports: Hx Blood Transfusions - no adverse rx, Hx Diabetes, Hx Thyroid Disease Cardiovascular History: Reports: Hx Congestive Heart Failure, Hx Hypercholesterolemia, Hx Hypertension Denies: Hx Pacemaker/ICD Respiratory History: Denies: Hx Asthma History: Reports: Hx Kidney Infection Denies: Hx Renal Disease Musculoskeletal History: Reports: Hx Back Problems - back pain chronic- tylenol at home Sensory History: Reports: Hx Contacts or Glasses - reading only Denies: Hx Hearing Aid Opthamlomology History: Reports: Hx Contacts or Glasses - reading only Neurological History: Reports: Other Neuro Impairments/Disorders - diabetic neuropathy Psychiatric History: Denies: Hx Panic Disorder, Hx Suicide Attempt, Hx Substance Abuse - Surgical History Surgery Procedure, Year, and Place: RIGHT BELOW KNEE AMPUTATION 2010; spleenectomy 2009; HEART CATH WITH 1 STENT PLACED; CATARACTS (BILATERAL); Hx Anesthesia Reactions: No - Social History Alcohol Use: unknown Substance Use Type: Reports: None Smoking Status (MU): Former Smoker Review of Systems Negative: Fever Negative: Chest Pain Positive: Shortness Of Breath, Cough - productive All Other Systems Reviewed And Are Negative: Yes Physical Exam Triage Information Reviewed: Yes Vital Signs On Initial Exam: Initial Vitals Temp Pulse Resp BP Pulse Ox 98.3 F 91 20 179/99 95 08/13/16 22:10 08/13/16 22:10 08/13/16 22:10 08/13/16 22:10 08/13/16 22:10 Vital Signs Reviewed: Yes Appearance: Positive: Well-Appearing, No Pain Distress Skin: Positive: Warm, Skin Color Reflects Adequate Perfusion, Dry Head/Face: Positive: Normal Head/Face Inspection Eyes: Positive: EOMI, SHAGGY ENT: Positive: Normal ENT inspection Neck: Positive: Supple, Nontender Respiratory/Lung Sounds: Positive: Rhonchi - bilaterally Cardiovascular: Positive: RRR Abdomen Description: Positive: Nontender, Soft Bowel Sounds: Positive: Present Musculoskeletal: Positive: Normal, Strength/ROM Intact Neurological: Positive: Normal, Sensory/Motor Intact, Alert, Oriented to Person Place, Time Psychiatric: Positive: Affect/Mood Appropriate Diagnostics - Vital Signs Vital Signs Temp Pulse Resp BP Pulse Ox 08/14/16 04:00 80 133/93 95 08/14/16 03:30 64 127/63 89 08/14/16 03:00 92 115/74 87 08/14/16 02:30 62 121/82 96 08/14/16 02:08 83 158/86 95 08/14/16 02:00 82 96 08/14/16 01:30 80 21 156/72 97 08/14/16 01:03 80 20 167/96 100 08/14/16 01:00 81 18 181/107 99 08/14/16 00:30 80 18 160/87 99 08/14/16 00:01 78 23 168/94 100 08/14/16 00:00 80 23 100 08/13/16 23:59 80 23 100 08/13/16 23:30 82 19 186/132 100 08/13/16 23:08 77 24 100 08/13/16 23:00 77 20 149/75 100 08/13/16 22:30 81 22 183/103 94 08/13/16 22:20 89 98 08/13/16 22:19 179/99 08/13/16 22:10 98.3 F 91 20 179/99 95 - Laboratory Lab Results: Lab Results 08/13/16 08/13/16 08/13/16 Range/Units 22:15 22:20 22:20 WBC 18.0 H (3.5-10.8) 10^3/ul RBC 4.37 (4.0-5.4) 10^6/ul Hgb 11.2 L (14.0-18.0) g/dl Hct 36 L (42-52) % MCV 83 (80-94) fL MCH 26 L (27-31) pg MCHC 31 (31-36) g/dl RDW 18 H (10.5-15) % Plt Count 267 (150-450) 10^3/ul MPV 10 (7.4-10.4) um3 Immature Gran % (Auto) Not Reportable Absolute Neuts (auto) 16.2 H (1.5-7.7) 10^3/ul Absolute Lymphs (auto) 0.4 L (1.0-4.8) 10^3/ul Absolute Monos (auto) 1.4 H (0-0.8) 10^3/ul Absolute Eos (auto) 0 (0-0.6) 10^3/ul Absolute Basos (auto) 0 (0-0.2) 10^3/ul Absolute Nucleated RBC 0 10^3/ul Neutrophils % 90 H (38-83) % Band Neutrophils % Not Reportable Lymphocytes % 2 L (25-47) % Monocytes % 8 (0-13) % Normal RBC Morphology Not Reportable [place] Cells 1+ Acanthocytes (Spur) 1+ Schistocytes 1+ Hem Pathologist Commnt INR (Anticoag Therapy) 0.95 (0.89-1.11) APTT 23.3 L (26.0-36.3) seconds Patient Temperature ABG pH 7.34 L (7.35-7.45) ABG pCO2 52 H (35-45) mmHg ABG pO2 113 H (80-100) mmHg ABG HCO3 26.1 (19-31) mmol/L ABG O2 Saturation 97.9 (95-98) % ABG Base Excess 1.6 (-2.0-2.0) Respiration Rate O2 Delivery Device Ventilator Type Vent Mode FiO2 Inspiratory Time PEEP Pressure Support Pressure Control EPAP IPAP BiPAP Sodium (133-145) mmol/L Potassium (3.5-5.0) mmol/L Chloride (101-111) mmol/L Carbon Dioxide (22-32) mmol/L Anion Gap (2-11) mmol/L BUN (6-24) mg/dL Creatinine (0.67-1.17) mg/dL Est GFR ( Amer) (>60) Est GFR (Non-Af Amer) (>60) BUN/Creatinine Ratio (8-20) Glucose (70-100) mg/dL Lactic Acid (0.5-2.0) mmol/L Calcium (8.6-10.3) mg/dL Magnesium (1.9-2.7) mg/dL Total Bilirubin (0.2-1.0) mg/dL AST (13-39) U/L ALT (7-52) U/L Alkaline Phosphatase (34-104) U/L Total Creatine Kinase (10-223) U/L CK-MB (CK-2) (0.6-6.3) ng/mL Troponin I (<0.04) ng/mL C-Reactive Protein (< 5.00) mg/L B-Natriuretic Peptide ( - 100) pg/mL Total Protein (6.4-8.9) g/dL Albumin (3.2-5.2) g/dL Globulin (2-4) g/dL Albumin/Globulin Ratio (1-3) Lipase (11.0-82.0) U/L TSH (0.34-5.60) mcIU/mL Urine Color Urine Appearance Urine pH (5-9) Ur Specific [place] (1.010-1.030) Urine Protein (Negative) Urine Ketones (Negative) Urine Blood (Negative) Urine Nitrate (Negative) Urine Bilirubin (Negative) Urine Urobilinogen (Negative) Ur Leukocyte Esterase (Negative) Urine WBC (Auto) (Absent) Urine RBC (Auto) (Absent) Ur Squamous Epith Cells (Absent) Urine Bacteria (Absent) Hyaline Casts (Absent) Urine Glucose (Negative) 08/13/16 08/13/16 08/13/16 Range/Units 22:20 22:20 22:20 WBC (3.5-10.8) 10^3/ul RBC (4.0-5.4) 10^6/ul Hgb (14.0-18.0) g/dl Hct (42-52) % MCV (80-94) fL MCH (27-31) pg MCHC (31-36) g/dl RDW (10.5-15) % Plt Count (150-450) 10^3/ul MPV (7.4-10.4) um3 Immature Gran % (Auto) Absolute Neuts (auto) (1.5-7.7) 10^3/ul Absolute Lymphs (auto) (1.0-4.8) 10^3/ul Absolute Monos (auto) (0-0.8) 10^3/ul Absolute Eos (auto) (0-0.6) 10^3/ul Absolute Basos (auto) (0-0.2) 10^3/ul Absolute Nucleated RBC 10^3/ul Neutrophils % (38-83) % Band Neutrophils % Lymphocytes % (25-47) % Monocytes % (0-13) % Normal RBC Morphology [place] Cells Acanthocytes (Spur) Schistocytes Hem Pathologist Commnt INR (Anticoag Therapy) (0.89-1.11) APTT (26.0-36.3) seconds Patient Temperature ABG pH (7.35-7.45) ABG pCO2 (35-45) mmHg ABG pO2 (80-100) mmHg ABG HCO3 (19-31) mmol/L ABG O2 Saturation (95-98) % ABG Base Excess (-2.0-2.0) Respiration Rate O2 Delivery Device Ventilator Type Vent Mode FiO2 Inspiratory Time PEEP Pressure Support Pressure Control EPAP IPAP BiPAP Sodium 137 (133-145) mmol/L Potassium 4.9 (3.5-5.0) mmol/L Chloride 104 (101-111) mmol/L Carbon Dioxide 26 (22-32) mmol/L Anion Gap 7 (2-11) mmol/L BUN 45 H (6-24) mg/dL Creatinine 1.79 H (0.67-1.17) mg/dL Est GFR ( Amer) 48.0 (>60) Est GFR (Non-Af Amer) 37.3 (>60) BUN/Creatinine Ratio 25.1 H (8-20) Glucose 166 H (70-100) mg/dL Lactic Acid 0.9 (0.5-2.0) mmol/L Calcium 9.0 (8.6-10.3) mg/dL Magnesium 1.8 L (1.9-2.7) mg/dL Total Bilirubin 0.50 (0.2-1.0) mg/dL AST 17 (13-39) U/L ALT 16 (7-52) U/L Alkaline Phosphatase 71 (34-104) U/L Total Creatine Kinase 57 (10-223) U/L CK-MB (CK-2) 4.7 (0.6-6.3) ng/mL Troponin I 0.05 H* (<0.04) ng/mL C-Reactive Protein 22.68 H (< 5.00) mg/L B-Natriuretic Peptide 410 H ( - 100) pg/mL Total Protein 6.8 (6.4-8.9) g/dL Albumin 3.5 (3.2-5.2) g/dL Globulin 3.3 (2-4) g/dL Albumin/Globulin Ratio 1.1 (1-3) Lipase < 10 L (11.0-82.0) U/L TSH 4.55 (0.34-5.60) mcIU/mL Urine Color Urine Appearance Urine pH (5-9) Ur Specific [place] (1.010-1.030) Urine Protein (Negative) Urine Ketones (Negative) Urine Blood (Negative) Urine Nitrate (Negative) Urine Bilirubin (Negative) Urine Urobilinogen (Negative) Ur Leukocyte Esterase (Negative) Urine WBC (Auto) (Absent) Urine RBC (Auto) (Absent) Ur Squamous Epith Cells (Absent) Urine Bacteria (Absent) Hyaline Casts (Absent) Urine Glucose (Negative) 08/13/16 08/14/16 Range/Units 23:50 02:12 WBC (3.5-10.8) 10^3/ul RBC (4.0-5.4) 10^6/ul Hgb (14.0-18.0) g/dl Hct (42-52) % MCV (80-94) fL MCH (27-31) pg MCHC (31-36) g/dl RDW (10.5-15) % Plt Count (150-450) 10^3/ul MPV (7.4-10.4) um3 Immature Gran % (Auto) Absolute Neuts (auto) (1.5-7.7) 10^3/ul Absolute Lymphs (auto) (1.0-4.8) 10^3/ul Absolute Monos (auto) (0-0.8) 10^3/ul Absolute Eos (auto) (0-0.6) 10^3/ul Absolute Basos (auto) (0-0.2) 10^3/ul Absolute Nucleated RBC 10^3/ul Neutrophils % (38-83) % Band Neutrophils % Lymphocytes % (25-47) % Monocytes % (0-13) % Normal RBC Morphology [place] Cells Acanthocytes (Spur) Schistocytes Hem Pathologist Commnt INR (Anticoag Therapy) (0.89-1.11) APTT (26.0-36.3) seconds Patient Temperature Not Reportable ABG pH 7.40 (7.35-7.45) ABG pCO2 45 (35-45) mmHg ABG pO2 77 L (80-100) mmHg ABG HCO3 26.9 (19-31) mmol/L ABG O2 Saturation 97.3 (95-98) % ABG Base Excess 2.6 H (-2.0-2.0) Respiration Rate Not Reportable O2 Delivery Device nasal cannula Ventilator Type Not Reportable Vent Mode Not Reportable FiO2 28 Inspiratory Time Not Reportable PEEP Not Reportable Pressure Support Not Reportable Pressure Control Not Reportable EPAP Not Reportable IPAP Not Reportable BiPAP Not Reportable Sodium (133-145) mmol/L Potassium (3.5-5.0) mmol/L Chloride (101-111) mmol/L Carbon Dioxide (22-32) mmol/L Anion Gap (2-11) mmol/L BUN (6-24) mg/dL Creatinine (0.67-1.17) mg/dL Est GFR ( Amer) (>60) Est GFR (Non-Af Amer) (>60) BUN/Creatinine Ratio (8-20) Glucose (70-100) mg/dL Lactic Acid (0.5-2.0) mmol/L Calcium (8.6-10.3) mg/dL Magnesium (1.9-2.7) mg/dL Total Bilirubin (0.2-1.0) mg/dL AST (13-39) U/L ALT (7-52) U/L Alkaline Phosphatase (34-104) U/L Total Creatine Kinase (10-223) U/L CK-MB (CK-2) (0.6-6.3) ng/mL Troponin I (<0.04) ng/mL C-Reactive Protein (< 5.00) mg/L B-Natriuretic Peptide ( - 100) pg/mL Total Protein (6.4-8.9) g/dL Albumin (3.2-5.2) g/dL Globulin (2-4) g/dL Albumin/Globulin Ratio (1-3) Lipase (11.0-82.0) U/L TSH (0.34-5.60) mcIU/mL Urine Color Yellow Urine Appearance Cloudy Urine pH 8.0 (5-9) Ur Specific [place] 1.013 (1.010-1.030) Urine Protein 2+(100 mg/dl) H (Negative) Urine Ketones Negative (Negative) Urine Blood 1+ H (Negative) Urine Nitrate Negative (Negative) Urine Bilirubin Negative (Negative) Urine Urobilinogen Negative (Negative) Ur Leukocyte Esterase 2+ H (Negative) Urine WBC (Auto) 3+(>20/hpf) H (Absent) Urine RBC (Auto) Trace(0-2/hpf) (Absent) Ur Squamous Epith Cells Present H (Absent) Urine Bacteria 3+ H (Absent) Hyaline Casts Present H (Absent) Urine Glucose 2+(150 mg/dl) H (Negative) Result Diagrams: 08/17/16 04:22 08/17/16 04:25 Lab Statement: Any lab studies that have been ordered have been reviewed, and results considered in the medical decision making process. Course/Dx - Course Assessment/Plan: DISPOSITION PENDING AT SHIFT CHANGE STABLE - Diagnoses Provider Diagnoses: CHF (congestive heart failure) Discharge - Discharge Plan Condition: Improved Disposition: ADMITTED TO [facility] The documentation as recorded by the Karrie preston Janilya accurately reflects the service I personally performed and the decisions made by , Abraham Richter MD.
== END 2016-08-17 14:35 | DRG 291 ==
LOC: ED 22:06 → MEDTELE 08-14 04:29
PROVIDERS: ADMIT Hospitalist; ATTEND Internal Medicine
PROC: 5A09357 Assistance with Respiratory Ventilation, Less than 24 Consecutive Hours, Continuous Positive Airway Pressure (ICD-10-PCS; principal; 2016-08-14)
DX: I13.0 Hypertensive heart and chronic kidney disease with heart failure and stage 1 through stage 4 chronic kidney disease, or unspecified chronic kidney disease (principal); J96.01 Acute respiratory failure with hypoxia; J96.02 Acute respiratory failure with hypercapnia; I50.43 Acute on chronic combined systolic (congestive) and diastolic (congestive) heart failure; I24.8 Other forms of acute ischemic heart disease; N39.0 Urinary tract infection, site not specified; E11.40 Type 2 diabetes mellitus with diabetic neuropathy, unspecified; I25.10 Atherosclerotic heart disease of native coronary artery without angina pectoris; Z95.5 Presence of coronary angioplasty implant and graft; F19.90 Other psychoactive substance use, unspecified, uncomplicated; D86.9 Sarcoidosis, unspecified; Z86.718 Personal history of other venous thrombosis and embolism; E78.5 Hyperlipidemia, unspecified; G47.33 Obstructive sleep apnea (adult) (pediatric); Z89.512 Acquired absence of left leg below knee; Z89.511 Acquired absence of right leg below knee; E03.9 Hypothyroidism, unspecified; Z87.891 Personal history of nicotine dependence; Z66 Do not resuscitate; Z99.3 Dependence on wheelchair; N18.3 Chronic kidney disease, stage 3 (moderate); H70.10 Chronic mastoiditis, unspecified ear; B96.4 Proteus (mirabilis) (morganii) as the cause of diseases classified elsewhere; K21.9 Gastro-esophageal reflux disease without esophagitis; I25.2 Old myocardial infarction; N40.0 Benign prostatic hyperplasia without lower urinary tract symptoms; I70.0 Atherosclerosis of aorta; I77.819 Aortic ectasia, unspecified site; Z79.02 Long term (current) use of antithrombotics/antiplatelets; Z79.82 Long term (current) use of aspirin; Z79.52 Long term (current) use of systemic steroids; Z79.4 Long term (current) use of insulin; D86.89 Sarcoidosis of other sites
CPT/HCPCS: 36415; 36600; 71010; 80048; 80053; 81003; 81015; 82550; 82553; 82803; 83605; 83690; 83735; 83880; 84443; 84484; 85025; 85060; 85610; 85730; 86140; 87040; 87077; 87086; 87186; 93005; 93306; 94640; 94660; 94760; 99283; A9270-GY; J1644; J1940; J7512

== ENCOUNTER 2017-04-12 08:28 | Inpatient (IN) | payer MEDICARE, MEDICAID ==
[2017-04-12] MEDS ORDERED: NS 0.9% 1000 ML*IV.FLUID IV ONE (08:31)
[2017-04-12] MEDS ORDERED: Cefepime(*) 2 GM in NS 0.9% 50 ML* 50 ML IVPB ONE (08:33)
[2017-04-12] MEDS ORDERED: Levofloxacin 750 MG IVPREMIX(* 750 MG/150 ML BAG IVPB ONE (08:34)
[2017-04-12] MEDS ORDERED: NS 0.9% 50 ML* 50 ML ONE (08:45)
[2017-04-12 08:59] LABS: Hematocrit 35 % (42-52); Hemoglobin 11.4 g/dl (14.0-18.0); Mean Corpuscular HGB Conc 33 g/dl (31-36); Mean Corpuscular Hemoglobin 28 pg (27-31); Mean Corpuscular Volume 86 fL (80-94); Mean Platelet Volume 9 um3 (7.4-10.4); Red Blood Count 4.07 10^6/ul (4.0-5.4); Red Cell Distribution Width 15 % (10.5-15); White Blood Count 10.8 10^3/ul (3.5-10.8)
[2017-04-12 09:00] LABS: Add Diff/Slide Review? Slide Review Added; Comments Flag Yes
[2017-04-12 09:11] LABS: EPAP 8; FIO2 50; IPAP 14
[2017-04-12 09:13] LABS: Albumin 3.6 g/dL (3.2-5.2); BUN/Creatinine Ratio 35.9 (8-20); C Reactive Protein 27.44 mg/L (< 5.00); Calcium 8.8 mg/dL (8.6-10.3); EGFR African American 56.1 (>60); EGFR Non-African American 43.6 (>60); Globulin 2.8 g/dL (2-4); Total Bilirubin 0.6 mg/dL (0.2-1.0); Total Protein 6.4 g/dL (6.4-8.9)
[2017-04-12 09:16] LABS: PCO2 Arterial 53 mmHg (35-45)
[2017-04-12 09:22] LABS: Troponin I 0.04 ng/mL (<0.04)
[2017-04-12 09:33] LABS: Hypochromasia 2+
[2017-04-12 09:34] LABS: Burr Cells 1+
--- NOTE | 2017-04-12 09:57 | RAD ---
HISTORY: Foot infection COMPARISONS: August 13, 2016 VIEWS: 1: frontal portable view of the chest at 9:30 AM FINDINGS: LINES AND TUBES: None. CARDIOMEDIASTINAL SILHOUETTE: The cardiomediastinal silhouette is normal for portable technique. PLEURA: The costophrenic angles are sharp. No pleural abnormalities are noted. LUNG PARENCHYMA: There is confluent alveolar opacification of left lung base ABDOMEN: The upper abdomen is clear. There is no subphrenic gas. BONES AND SOFT TISSUES: No bone or soft tissue abnormalities are noted. IMPRESSION: LEFT LOWER LOBE CONSOLIDATION. RECOMMEND FOLLOW-UP TO RESOLUTION TO EXCLUDE UNDERLYING PULMONARY PARENCHYMAL PATHOLOGY.
--- NOTE | 2017-04-12 09:58 | RAD ---
HISTORY: Foot infection COMPARISONS: None VIEWS: 2, Frontal and lateral views of the left foot FINDINGS: BONE DENSITY: There is diffuse osteopenia. BONES: There is no appreciable erosion or periosteal reaction. There are calcaneal enthesophytes. JOINTS: There is mild osteoarthritis of the midfoot and first MTP joint. ALIGNMENT: There is no dislocation. SOFT TISSUES: There is peripheral arterial calcification. There is dystrophic calcific lesion along the plantar fascia. There is severe soft tissue swelling of the midfoot. OTHER FINDINGS: None. IMPRESSION: 1. SEVERE SOFT TISSUE SWELLING OF THE MIDFOOT. 2. OSTEOPENIA. 3. OSTEOARTHRITIS. 4. PERIPHERAL ARTERIAL DISEASE. 5. NO APPRECIABLE EROSION OR PERIOSTEAL REACTION. PLAIN FILM FINDINGS OF OSTEOMYELITIS ARE RELATIVELY LATE FINDINGS. IF THERE IS PERSISTENT CLINICAL CONCERN FOR OSTEOMYELITIS, RECOMMEND CORRELATION WITH FOLLOWUP IMAGING, THREE-PHASE BONE SCANNING, WHITE BLOOD CELL SCAN, AND/OR MRI OF THE AFFECTED REGION.
[2017-04-12 10:12] LABS: Erythrocyte Sed Rate 32 mm/Hr (0-40)
[2017-04-12] MEDS ORDERED: PROCHLORPERAZINE INJ 5 MG/ML 2 ML VIAL IV PRN (10:54)
[2017-04-12] MEDS ORDERED: Acetaminophen TAB* 325 MG PO PRN (10:54)
[2017-04-12] MEDS ORDERED: Levothyroxine TAB* 175 MCG TAB PO SCH (11:00)
[2017-04-12] MEDS ORDERED: NS 0.9% 1000 ML* 1,000 ML IV SCH (11:00)
[2017-04-12 11:25] LABS: Urine Bilirubin Negative (Negative); Urine Nitrite Negative (Negative)
[2017-04-12 11:26] LABS: Urine Glucose Negative (Negative)
[2017-04-12 11:29] LABS: Urine Bacteria 2+ (Absent)
[2017-04-12] MEDS ORDERED: Vancomycin(*) 1,500 MG in NS 0.9% 250 ML* 250 ML IVPB ONE (11:30)
--- NOTE | 2017-04-12 11:37 | RAD ---
INDICATION: Change in mental status COMPARISON: CT brain February 02, 2015 TECHNIQUE: Noncontrast axial source images were acquired from the skull base to the vertex. FINDINGS: Ventricles/sulci: There is cortical atrophy with compensatory dilatation of the CSF spaces. Brain parenchyma: There is periventricular and subcortical white matter change compatible with chronic ischemia. Intracranial hemorrhage:None. Extra-axial spaces: There are no abnormal extra axial fluid collections or evidence of extra-axial mass. Calvarium: There is no calvarial fracture or other calvarial abnormality. Scalp: There is no evidence of scalp or extracalvarial soft tissue abnormality. Paranasal sinuses/mastoid: There is mild bilateral ethmoid sinusitis The paranasal sinuses and mastoid air cells are clear. Other: There are extensive vascular calcifications. IMPRESSION: CORTICAL ATROPHY WITH CHRONIC MICROVASCULAR ISCHEMIC CHANGES. NO ACUTE FINDINGS.
--- NOTE | 2017-04-12 11:45 | ED ---
Sukhi Mccray Angela, scribed for Mike Reyes MD on 04/12/17 at 0914 . Shortness of Breath - HPI Summary HPI Summary: This pt is a 76 y/o male BIBA from [place] presenting to [facility] c/o shortness of breath today. Pt is currently on Levaquin. Per EMS, pt was found to have diminished breath sounds and left sided rhonchi. 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 Per EMS, there a wound on the left leg. Pt is a DNI (do not intubate) and DNR. PMHx: CHF, diabetes, HTN. HPI LIMITED BY LEVEL 5 CAVEAT - AMS. - History of Current Complaint Chief Complaint: EDShortnessOfBreath Hx Obtained From: Patient Hx From Patient Unobtainable Due To: Altered Mental Status Onset/Duration: Sudden Onset - Allergy/Home Medications Allergies/Adverse Reactions: Allergies Allergy/AdvReac Type Severity Reaction Status Date / Time Furosemide [From Lasix] Allergy Unknown Verified 04/12/17 10:56 Reaction Details Home Medications: Home Medications Acetaminophen [Mapap] 2 tab PO BID 04/12/17 [History Confirmed 04/12/17] Albuterol/Ipratropium NEB.FRAN* [Duoneb (Albuterol 2.5 MG/Ipratropium 0.5 MG)] 1 neb INH TID 04/12/17 [History Confirmed 04/12/17] Amino Acids [Liquacel Pump + Go] 30 ml PO BID 04/12/17 [History Confirmed ] Artificial Tears* 15 ML BTL [Polyvinyl Alcohol 1.4% OPTH*] 2 drop BOTH EYES BID 04/12/17 [History Confirmed 04/12/17] Bath Products [Aveeno Daily Moisturizing] 1 liq TOPICAL BID PRN 04/12/17 [ History Confirmed 04/12/17] Collagenase 250 MG/GM OINT* [Santyl 250 mg/gm Oint*] 1 applic TOPICAL DAILY [History Confirmed 04/12/17] Insulin Aspart [Novolog] 4 unit SUBCUT DAILY 04/12/17 [History Confirmed ] Insulin GLARGINE(*) [Lantus(*)] 55 units SUBCUT 0900 04/12/17 [History Confirmed 04/12/17] Lactobacillus Acidophilu (GG)* [Culturelle*] 1 cap PO DAILY 04/12/17 [History Confirmed 04/12/17] Levofloxacin TAB* [Levaquin TAB*] 500 mg PO DAILY 04/12/17 [History Confirmed ] Menthol-Zinc Oxide [Calmoseptine] 1 oin TOPICAL TID 04/12/17 [History Confirmed 04/12/17] Nystatin CREAM* 1 applic TOPICAL BID 04/12/17 [History Confirmed 04/12/17] cloNIDine TAB* [Catapres 0.1 MG TAB*] 0.2 mg PO TID 04/12/17 [History Confirmed 04/12/17] PMH/Surg Hx/FS Hx/Imm Hx Endocrine/Hematology History: Reports: Hx Blood Transfusions - no adverse rx, Hx Diabetes, Hx Thyroid Disease Cardiovascular History: Reports: Hx Congestive Heart Failure, Hx Hypercholesterolemia, Hx Hypertension Denies: Hx Pacemaker/ICD, Hx Peripheral Vascular Disease Respiratory History: Denies: Hx Asthma History: Reports: Hx Kidney Infection Denies: Hx Renal Disease Musculoskeletal History: Reports: Hx Back Problems - back pain chronic- tylenol at home Denies: Hx Osteoporosis Sensory History: Reports: Hx Contacts or Glasses - reading only Denies: Hx Hearing Aid Opthamlomology History: Reports: Hx Contacts or Glasses - reading only Neurological History: Reports: Other Neuro Impairments/Disorders - diabetic neuropathy Denies: Hx Headaches, Hx Seizures, Hx Transient Ischemic Attacks (TIA) Psychiatric History: Denies: Hx Panic Disorder, Hx Suicide Attempt, Hx Substance Abuse - Surgical History Surgery Procedure, Year, and Place: RIGHT BELOW KNEE AMPUTATION 2010; spleenectomy 2009; HEART CATH WITH 1 STENT PLACED; CATARACTS (BILATERAL); Hx Anesthesia Reactions: No - Immunization History Date of Tetanus Vaccine: unk Date of Influenza Vaccine: unk Infectious Disease History: Denies: Traveled Outside the [place] in Last 30 Days - Family History Known Family History: Positive: Other - Mother: breast CA - Social History Alcohol Use: None - former alcoholic Substance Use Type: Reports: None Smoking Status (MU): Former Smoker Review of Systems Positive: Other - lethargic Positive: Shortness Of Breath Positive: Other - Right leg: above the knee amputation All Other Systems Reviewed And Are Negative: No - Comments Additional Review of Systems Comments: HPI IS LIMITED DUE TO LEVEL 5 CAVEAT - AMS Physical Exam - Summary Physical Exam Summary: Vital signs: reviewed General: Patient is an obese male with lethargy and moans to verbal stimulation. Unale to comunicate Head: Normacephalic and atraumatic Eyes: PERRLA, no injective conjunctiva Nose and mouth: Dry nasal and oral mucosa Neck: Supple, no lymphadenopathy, no JVD Lungs: Decreased breath sounds bilateral. Positive diffuse crackles. CVS: S1 & S2 present. No murmurs appreciated. ABDOMEN: Soft, obese, decreased BS. EXTREMITIES: RLE AKA. Left with toe amputations and wound with clear discharge. NEURO: Lethargic, responds to verbal stimuli. SKIN: Dry and warm Triage Information Reviewed: Yes Vital Signs On Initial Exam: Initial Vitals Pulse Resp Pulse Ox 61 18 97 04/12/17 09:55 04/12/17 09:55 04/12/17 09:55 Vital Signs Reviewed: Yes Completion Of Physical Exam Limited Due To: Altered Mental Status, Level 5 Diagnostics - Laboratory Lab Results: Lab Results 04/12/17 04/12/17 04/12/17 Range/Units 08:40 08:40 08:40 WBC 10.8 (3.5-10.8) 10^3/ul RBC 4.07 (4.0-5.4) 10^6/ul Hgb 11.4 L (14.0-18.0) g/dl Hct 35 L (42-52) % MCV 86 (80-94) fL MCH 28 (27-31) pg MCHC 33 (31-36) g/dl RDW 15 (10.5-15) % Plt Count 295 (150-450) 10^3/ul MPV 9 (7.4-10.4) um3 Neut % (Auto) 71.1 (38-83) % Lymph % (Auto) 9.3 L (25-47) % [place] % (Auto) 15.3 H (1-9) % Eos % (Auto) 3.7 (0-6) % Baso % (Auto) 0.6 (0-2) % Absolute Neuts (auto) 7.7 (1.5-7.7) 10^3/ul Absolute Lymphs (auto) 1.0 (1.0-4.8) 10^3/ul Absolute Monos (auto) 1.7 H (0-0.8) 10^3/ul Absolute Eos (auto) 0.4 (0-0.6) 10^3/ul Absolute Basos (auto) 0.1 (0-0.2) 10^3/ul Absolute Nucleated RBC 0.01 10^3/ul Nucleated RBC % 0 ESR Pending Patient Temperature ABG pH ABG pH (Temp Correct) ABG pCO2 ABG pCO2 (Temp Corrct ABG pO2 ABG pO2 (Temp Correct ABG HCO3 ABG O2 Saturation ABG Base Excess Respiration Rate O2 Delivery Device Ventilator Type Vent Mode FiO2 Inspiratory Time PEEP Pressure Support Pressure Control EPAP IPAP BiPAP Sodium 130 L (133-145) mmol/L Potassium 4.0 (3.5-5.0) mmol/L Chloride 97 L (101-111) mmol/L Carbon Dioxide 29 (22-32) mmol/L Anion Gap 4 (2-11) mmol/L BUN 56 H (6-24) mg/dL Creatinine 1.56 H (0.67-1.17) mg/dL Est GFR ( Amer) 56.1 (>60) Est GFR (Non-Af Amer) 43.6 (>60) BUN/Creatinine Ratio 35.9 H (8-20) Glucose 68 L (70-100) mg/dL Lactic Acid (0.5-2.0) mmol/L Calcium 8.8 (8.6-10.3) mg/dL Total Bilirubin 0.60 (0.2-1.0) mg/dL AST 19 (13-39) U/L ALT 14 (7-52) U/L Alkaline Phosphatase 62 (34-104) U/L Total Creatine Kinase 98 (10-223) U/L Troponin I Pending C-Reactive Protein 27.44 H (< 5.00) mg/L Total Protein 6.4 (6.4-8.9) g/dL Albumin 3.6 (3.2-5.2) g/dL Globulin 2.8 (2-4) g/dL Albumin/Globulin Ratio 1.3 (1-3) Blood Type O Positive Antibody Screen Pending 04/12/17 04/12/17 Range/Units 08:40 09:05 WBC (3.5-10.8) 10^3/ul RBC (4.0-5.4) 10^6/ul Hgb (14.0-18.0) g/dl Hct (42-52) % MCV (80-94) fL MCH (27-31) pg MCHC (31-36) g/dl RDW (10.5-15) % Plt Count (150-450) 10^3/ul MPV (7.4-10.4) um3 Neut % (Auto) (38-83) % Lymph % (Auto) (25-47) % [place] % (Auto) (1-9) % Eos % (Auto) (0-6) % Baso % (Auto) (0-2) % Absolute Neuts (auto) (1.5-7.7) 10^3/ul Absolute Lymphs (auto) (1.0-4.8) 10^3/ul Absolute Monos (auto) (0-0.8) 10^3/ul Absolute Eos (auto) (0-0.6) 10^3/ul Absolute Basos (auto) (0-0.2) 10^3/ul Absolute Nucleated RBC 10^3/ul Nucleated RBC % ESR Patient Temperature Not Reportable ABG pH Pending ABG pH (Temp Correct) Pending ABG pCO2 Pending ABG pCO2 (Temp Corrct Pending ABG pO2 Pending ABG pO2 (Temp Correct Pending ABG HCO3 Pending ABG O2 Saturation Pending ABG Base Excess Pending Respiration Rate Not Reportable O2 Delivery Device bipap Ventilator Type Not Reportable Vent Mode Not Reportable FiO2 50 Inspiratory Time Not Reportable PEEP Not Reportable Pressure Support Not Reportable Pressure Control Not Reportable EPAP 8 IPAP 14 BiPAP s/t Sodium (133-145) mmol/L Potassium (3.5-5.0) mmol/L Chloride (101-111) mmol/L Carbon Dioxide (22-32) mmol/L Anion Gap (2-11) mmol/L BUN (6-24) mg/dL Creatinine (0.67-1.17) mg/dL Est GFR ( Amer) (>60) Est GFR (Non-Af Amer) (>60) BUN/Creatinine Ratio (8-20) Glucose (70-100) mg/dL Lactic Acid 0.6 (0.5-2.0) mmol/L Calcium (8.6-10.3) mg/dL Total Bilirubin (0.2-1.0) mg/dL AST (13-39) U/L ALT (7-52) U/L Alkaline Phosphatase (34-104) U/L Total Creatine Kinase (10-223) U/L Troponin I C-Reactive Protein (< 5.00) mg/L Total Protein (6.4-8.9) g/dL Albumin (3.2-5.2) g/dL Globulin (2-4) g/dL Albumin/Globulin Ratio (1-3) Blood Type Antibody Screen Result Diagrams: 04/12/17 08:40 04/12/17 08:40 Lab Statement: Any lab studies that have been ordered have been reviewed, and results considered in the medical decision making process. - Radiology Chest XR Xray Interpretation: Positive (See Comments) - IMPRESSION: Left lower lobe consolidation. Recommend follow-up to resolution to exclude underlying pulmonary parenchymal pathology. ED physician has reviewed this radiology report and agrees. Radiology Interpretation Completed By: Radiologist Left Foot XR Xray Interpretation: Positive (See Comments) - IMPRESSION: 1. SEVERE SOFT TISSUE SWELLING OF THE MIDFOOT. 2. OSTEOPENIA. 3. OSTEOARTHRITIS. 4. PERIPHERAL ARTERIAL DISEASE. 5. NO APPRECIABLE EROSION OR PERIOSTEAL REACTION. PLAIN FILM FINDINGS OF OSTEOMYELITIS ARE RELATIVELY LATE FINDINGS. IF THERE IS PERSISTENT CLINICAL CONCERN FOR OSTEOMYELITIS, RECOMMEND CORRELATION WITH FOLLOWUP IMAGING, THREE-PHASE BONE SCANNING, WHITE BLOOD CELL SCAN, AND/OR MRI OF THE AFFECTED REGION. ED physician has reviewed this radiology report and agrees. Radiology Interpretation Completed By: Radiologist - EKG 0943 Cardiac Rate: NL - 62 bpm EKG Rhythm: Sinus Rhythm EKG Comparison: No Significant Change - No change to previous EKG from 04/13/17. Course/Dx - Course Assessment/Plan: In the ED course an IV access was obtained. Patient was placed in a wiping cloth cutter. Patient was started with IV fluids, Cefepime and Levaquin since I believe patient is septic. Physical exam reveals a lethargic male with low O2 sats. He respond with difficulty to verbal stimulation. Lungs with decreased breath sounds and diffuse crackles. RLE with BKA and left LE with toes amputation and a wound with mild discharge. Patient is DNR and DNI therefore unable to intubate patient. ABG PH 7.32, PCO2 53, PO2 99 O2 sat 98.5. Patient placed in BiPap. I also ordered a foot x ray since patient has a wound with some discharge and hx of Osteomyelitis. Labs within normal limits except for mild chronic anemia, w/o bands. Chronic renal insufficiency. Increased CRP to 27.4, and Troponin #1: 0.04. EKG shows a NSR at w/o ST elevations. CXR impression: Left Lower Lobe Pneumonia and possible a pleural effusion. Patient continues to be lethargic. He is BiPap. Head CT: no acute intracraneal changes. I discuss my physical exam, findings and test results with Dr. Acosta from the hospitalist services and she agrees to admit patient to his services. - Diagnoses Differential Diagnosis/HQI/PQRI: Positive: CHF, COPD Exacerbation, [place], Pneumonia , Pulmonary Edema Provider Diagnoses: Pneumonia, Pleural effusion, Altered mental status, unspecified, Respiratory failure - Physician Notifications Discussed Care of Patient With: Tammie Acosta Time Discussed With Above Provider: 09:40 Instructed by Provider To: Other - I discussed the pt's case with Dr. Acosta. She has accepted the pt for admission. - Critical Care Time Critical Care Time: 30-74 min Discharge - Discharge Plan Condition: Stable Disposition: ADMITTED TO [facility] The documentation as recorded by the Sukhi preston Angela accurately reflects the service I personally performed and the decisions made by me, Mike Reyes MD.
[2017-04-12] MEDS ORDERED: cloNIDine TAB* 0.1 MG PO SCH (14:00)
--- NOTE | 2017-04-12 14:43 | HP ---
CC: Dr. Fierro [place] Cecilio; Dr. Higgins HISTORY AND PHYSICAL: DATE OF ADMISSION: 04/12/17 TIME OF EVALUATION: 10:20 a.m. PRIMARY CARE PROVIDER: Dr. Fierro [place] Cecilio. CONSULTING ROAD ENGINEER: Dr. Higgins. CHIEF COMPLAINT: Shortness of breath. HISTORY OF PRESENT ILLNESS: Mr. Camargo is a 76-year-old male with a past medical history of coronary artery disease, status post stents, congestive heart failure, hypertension, hyperlipidemia, type 2 diabetes with diabetic neuropathy, status post right BKA, sarcoidosis, hypothyroidism, obstructive sleep apnea, obesity with a BMI of 39 that presents to the emergency room from [place] with complaints of lethargy, respiratory distress. The patient is not able to provide any history at this time. As per senior living report, the patient was diagnosed with pneumonia at [place] past week and was started on levofloxacin, but he did not have improvement on his respiratory status and became more lethargic. He was described of being in respiratory distress and requiring a 100% nonrebreather mask for transport. In the emergency room, he was placed on BiPAP and at the time of my examination , he opens eyes when called, but was not able to answer questions. PAST MEDICAL HISTORY: 1. Coronary artery disease status post stent x2. 2. Diastolic CHF with ejection fraction of 45% to 50%. 3. Hypertension. 4. Hyperlipidemia. 5. Type 2 diabetes. 6. Diabetic neuropathy. 7. Status post right BKA. 8. Sarcoidosis. 9. Hypothyroidism. 10. Obstructive sleep apnea. 11. Obesity. MEDICATIONS: 1. Acetaminophen 1000 mg p.o. b.i.d. 2. DuoNeb 3 times a day. 3. Liquid amino acids 30 mL p.o. b.i.d. 4. Amiodarone 100 mg p.o. every other day. 5. Artificial tears 2 drops to both eyes b.i.d. 6. Aspirin 81 mg p.o. daily. 7. Aveeno daily moisturizer to dry and itchy areas twice a day topical as needed. 8. Coreg 25 mg p.o. b.i.d. 9. Cholecalciferol 50,000 units p.o. monthly. 10. Clonidine 0.2 mg p.o. t.i.d. 11. Santyl topical daily to left dorsum of the foot wound. 12. Colace 200 mg p.o. daily. 13. Finasteride 5 mg p.o. at bedtime. 14. Guaifenesin 400 mg p.o. b.i.d. 15. NovoLog 4 units subcutaneously daily. 16. Lantus 55 units subcutaneously daily. 17. Culturelle 1 capsule p.o. daily. 18. Levofloxacin 500 mg p.o. daily. 19. Levothyroxine 175 mcg p.o. daily except on Sundays. 20. Calmoseptine topical t.i.d. 21. Nystatin cream topical b.i.d. 22. Prednisone 10 mg p.o. daily. ALLERGIES: FUROSEMIDE, the patient had unknown reaction. FAMILY HISTORY: As per records, is noncontributory. I am unable to obtain any information from the patient at this time. SOCIAL HISTORY: As per records, the patient is a former smoker. He quit 40 years ago. 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 No history of drugs. He lives at [facility]. He is wheelchair bound. Surrogate decision maker is his daughter, Christelle Camargo, phone number is [phone]. REVIEW OF SYSTEMS: Unable to obtain any information from the patient at this time due to his lethargy. PHYSICAL EXAMINATION GENERAL: The patient is an obese elderly male, lying in the stretcher, in no acute distress, lethargic. VITAL SIGNS: Temperature 97.9, heart rate is 63, respiratory rate is 20, oxygen saturation 96% on FiO2 of 45% on BiPAP, blood pressure is 168/72. CHEST: Breath sounds present bilaterally with crackles on both bases. Decreased on the left base. CVS: Normal S1, S2. Regular rate and rhythm. ABDOMEN: Soft, obese. Bowel sounds are present. EXTREMITIES: There is a right BKA. The patient has a dressing to his left foot and there is [id number] bilateral lower extremity pitting edema. NEURO: He is lethargic, open eyes when called, but does not follow commands. LABORATORY DATA/IMAGING DATA: The patient had a CBC that showed a WBC of 10.8 , hemoglobin 11.4, hematocrit of 35, platelets 295 with 71% neutrophils. ESR is 32. Coag shows an INR of 0.98. ABG shows a pH of 7.32, pCO2 of 53, pO2 of 99 , bicarb of 25, oxygen saturation 99% on room air. This was done on BiPAP 45% FiO2. Chemistry showed a sodium of 140, potassium of 4, chloride of 97, bicarb 29, BUN of 56, creatinine of 1.56, glucose of 68. LFTs are normal. Troponin is 0.04. CRP is 27.4. BNP is 153. Influenza A and B were negative. Chest x-ray showed a left lower lobe consolidation. A left foot x-ray showed severe soft tissue swelling of the mid foot, osteopenia, osteoarthritis, peripheral arterial disease. EKG done on 04/12/17 at 9:43 a.m. showed sinus rhythm at 63 beats per minute with a left bundle branch block. No significant changes when compared to his prior EKG from July 2016. A CT of the brain is ordered at the time of this dictation, but not yet done. ASSESSMENT AND PLAN: Mr. Camargo is a 76-year-old male with a past medical history of coronary artery disease, diastolic congestive heart failure, hypertension, hyperlipidemia, type 2 diabetes, diabetic neuropathy, chronic kidney disease stage 3, status post below knee amputation, sarcoidosis, hypothyroidism, obstructive sleep apnea, and obesity that was sent to the emergency room with complaints of shortness of breath and lethargy after being diagnosed with pneumonia as outpatient. 1. Acute hypercapnic respiratory failure. I suspect this is likely a combination of obstructive sleep apnea, obesity- hypoventilation syndrome and now worsened with pneumonia. The patient was already started on BiPAP and he will be admitted to the intensive care unit. A critical care consultation was requested with Dr. Higgins. 2. Healthcare-associated pneumonia. The patient has failed Levaquin therapy as outpatient. Influenza test is negative at this time. Blood cultures were sent in the emergency room. For now, he is going to be covered with vancomycin, cefepime and levofloxacin. We are going to check Legionella and Pneumococcal antigens. 3. Lethargy likely secondary to hypercapnic respiratory failure and pneumonia. The patient appears to be more awake at this time when compared to his arrival to the emergency room. 4. Type 2 diabetes. The patient will n.p.o. for now and he is going to receive Lantus at a lower dose and lispro sliding scale. 5. Chronic kidney disease. His renal function appears to be stable at this time. 6. Hypertension. We will continue Coreg and clonidine. 7. Sarcoidosis. I am going to continue steroids, but I am going to change to IV. I increased the dose a little to assist with a stress dose too. 8. DVT prophylaxis. The patient has a score of 5 on the DVT Prophylaxis Risk Assessment Guide and he will be started on subcutaneous heparin. 9. Code status. The patient is do not resuscitate and do not intubate and this is reflected in his MOLST form. TIME SPENT: Approximately 65 minutes of critical care time were spent to complete this admission. [id number]/CPS #: [id number] MTDD
[2017-04-12] MEDS: Albuterol/Ipratropium NEB.SOL* Albuterol 2.5 MG/Ipratropium 0.5 MG 3 ML INH SCH ×2 (14:46→20:13)
--- NOTE | 2017-04-12 15:18 | PN ---
Hospitalist Progress Note HOSPITALIST ADDENDUM Patient reevaluated at bedside. Breathing easier on BiPAP, more awake, following commands. BP is higher now, but he did not get his Coreg and Clonidine at their usual times, so suspect some rebound hypertension. He'll get them now, and when his BP is a little better, will release him from BiPAP and see his response. Even if he does well, I believe he would benefit of BiPAP overnight for his REY and probable obesity hypoventilation syndrome. Will request Wound consult evaluation for his left foot wounds.
[2017-04-12] MEDS ORDERED: Vancomycin per Pharmacy* NOTE FOLLOW UP PRN (15:25)
[2017-04-12] MEDS ORDERED: hydrALAZINE IV* 20 MG/ML VIAL IV SLOW PU PRN (15:33)
[2017-04-12] MEDS: methylPREDNISolone SOD 40 MG* 1 ML VIAL IV SCH (15:38)
[2017-04-12] MEDS: Heparin VIAL(*) 5000 UNITS/ML VIAL (FIVE THOUSAND) SUBCUT SCH ×2 (15:43→22:05)
[2017-04-12] MEDS ORDERED: cloNIDine 0.2 MG PATCH* 0.2 MG/24 HR 7 DAY PATCH TRANSDERM SCH (16:00)
[2017-04-12] MEDS: Dextrose 50% Syringe 50 ML* 25 GM/50 ML SYRINGE IV PUSH PRN (17:01)
[2017-04-12] MEDS: Insulin LISPRO* 1 UNITS UNIT SUBCUT SCH ×3 (17:30→21:36)
[2017-04-12] MEDS ORDERED: Acetaminophen SUPP* 650 MG SUPP PR PRN (17:44)
[2017-04-12] MEDS: Metoprolol Tartrate IV* 1 MG/ML 5 ML VIAL IV SCH (18:19)
[2017-04-12] MEDS: Cefepime(*) 1 GM in NS 0.9% 50 ML* 50 ML IVPB SCH (20:37)
[2017-04-12] MEDS ORDERED: Finasteride TAB* 5 MG PO SCH (21:00)
[2017-04-12] MEDS ORDERED: Carvedilol TAB* 25 MG PO SCH (21:00)
[2017-04-12] MEDS: Artificial Tears* 15 ML BTL BOTH EYES SCH (21:30)
[2017-04-12] MEDS: Nystatin CREAM* 15 GM TUBE TOPICAL SCH (21:30)
[2017-04-13] MEDS: Metoprolol Tartrate IV* 1 MG/ML 5 ML VIAL IV SCH ×4 (00:03→18:29)
[2017-04-13] MEDS: Insulin LISPRO* 1 UNITS UNIT SUBCUT SCH ×6 (02:05→21:10)
[2017-04-13] MEDS: Vancomycin(*) 1,250 MG IV IVPB SCH ×4 (03:10→15:26)
[2017-04-13] MEDS: Heparin VIAL(*) 5000 UNITS/ML VIAL (FIVE THOUSAND) SUBCUT SCH ×3 (06:11→21:01)
[2017-04-13] MEDS: Levothyroxine INJ* 100 MCG/5 ML VIAL IV SCH (06:12)
[2017-04-13 06:20] LABS: Hematocrit 33 % (42-52); Hemoglobin 10.7 g/dl (14.0-18.0); Mean Corpuscular HGB Conc 32 g/dl (31-36); Mean Corpuscular Hemoglobin 28 pg (27-31); Mean Corpuscular Volume 86 fL (80-94); Mean Platelet Volume 10 um3 (7.4-10.4); Red Blood Count 3.87 10^6/ul (4.0-5.4); Red Cell Distribution Width 15 % (10.5-15); White Blood Count 12.9 10^3/ul (3.5-10.8)
[2017-04-13 06:31] LABS: BUN/Creatinine Ratio 36.3 (8-20); Calcium 7.9 mg/dL (8.6-10.3); EGFR African American 73.1 (>60); EGFR Non-African American 56.8 (>60); Potassium 4.3 mmol/L (3.5-5.0)
[2017-04-13] MEDS: Albuterol/Ipratropium NEB.SOL* Albuterol 2.5 MG/Ipratropium 0.5 MG 3 ML INH SCH ×3 (08:16→19:41)
--- NOTE | 2017-04-13 08:17 | RAD ---
HISTORY: Follow-up pneumonia COMPARISONS: April 12, 2017 VIEWS: 2: frontal portable view of the chest at 6:40 AM FINDINGS: LINES AND TUBES: None. CARDIOMEDIASTINAL SILHOUETTE: The cardiomediastinal silhouette is normal for portable technique. PLEURA: The costophrenic angles are sharp. No pleural abnormalities are noted. LUNG PARENCHYMA: There is persistent, but improved, alveolar opacification of left lung base ABDOMEN: The upper abdomen is clear. There is no subphrenic gas. BONES AND SOFT TISSUES: No bone or soft tissue abnormalities are noted. IMPRESSION: PERSISTENT, BUT IMPROVED, LEFT BASILAR ATELECTASIS VERSUS CONSOLIDATION
--- NOTE | 2017-04-13 08:26 | PN ---
Subjective Date of Service: 04/13/17 Interval History: HOSPITALIST PROGRESS NOTE Patient seen and examined at bedside. He's more awake today, able to tell me where he is, denies chest pain. On BiPAP the whole night. Family History: Unchanged from Admission Social History: Unchanged from Admission Past Medical History: Unchanged from Admission Objective Active Medications: Acetaminophen (Tylenol Supp*) 650 mg [place] Q4H PRN PRN Reason: Pain/fever Albuterol/Ipratropium (Duoneb (Albuterol 2.5 Mg/Ipratropium 0.5 Mg)) 1 neb INH TID [facility] Last Admin: 04/13/17 08:16 Dose: 1 neb Aspirin (Aspirin Supp*) 300 mg [place] DAILY [facility] Clonidine HCl (Cwimynpj-Dgj-1 0.2 Mg Patch*) 0.2 mg TRANSDERM Q7D [facility] Last Admin: 04/12/17 16:38 Dose: 0.2 mg Collagenase (Santyl 250 Mg/Gm Oint*) 1 applic TOPICAL DAILY [facility] Dextrose (D50w Syringe 50 Ml*) 12.5 gm IV PUSH .FOR FS < 60 - SS PRN PRN Reason: FS < 60 Last Admin: 04/12/17 17:01 Dose: 12.5 gm Heparin Sodium (Porcine) (Heparin Vial(*)) 5,000 units SUBCUT Q8HR [facility] Last Admin: 04/13/17 06:11 Dose: 5,000 units Hydralazine HCl (Apresoline Iv*) 10 mg IV SLOW PU Q6H PRN PRN Reason: SBP>180 Last Admin: 04/12/17 16:00 Dose: 10 mg Levofloxacin/Dextrose (Levaquin 750 Mg Ivpremix(*)) 750 mg in 150 mls @ 100 mls /hr IVPB Q48H [facility] Cefepime HCl 1 gm/ Sodium (Chloride) 50 mls @ 100 mls/hr IVPB Q12H [facility] Last Admin: 04/12/17 20:37 Dose: 100 mls/hr Sodium Chloride (Ns 0.9% 1000 Ml*) 1,000 mls @ 100 mls/hr IV PER RATE [facility] Last Admin: 04/13/17 04:46 Dose: 100 mls/hr Vancomycin HCl 1,250 mg/ (Sodium Chloride) 250 mls @ 166.667 mls/hr IVPB Q12H [facility] Last Admin: 04/13/17 03:10 Dose: 166.667 mls/hr Insulin Human Lispro (Humalog*) 0 units SUBCUT Q4HR [facility] PRN Reason: Protocol Last Admin: 04/13/17 06:12 Dose: Not Given Levothyroxine Sodium (Synthroid Inj*) 88 mcg IV 0600 [facility] Last Admin: 04/13/17 06:12 Dose: 88 mcg Methylprednisolone Sodium Succinate (Solu-Medrol 40 Mg) 20 mg IV DAILY [facility] Last Admin: 04/12/17 15:38 Dose: 20 mg Metoprolol Tartrate (Lopressor Iv*) 5 mg IV Q6H [facility] Last Admin: 04/13/17 06:12 Dose: 5 mg Nystatin (Nystatin Cream*) 1 applic TOPICAL BID [facility] Last Admin: 04/12/17 21:30 Dose: 1 applic Pharmacy Consult (Vancomycin Per Pharmacy*) 1 note FOLLOW UP . PRN PRN Reason: PER PROTOCOL Pharmacy Profile Note (Vancomycin Trough Check) 1 note FOLLOW UP ONCE ONE Stop: 04/14/17 14:31 Polyvinyl Alcohol (Polyvinyl Alcohol 1.4% Opth*) 2 drop BOTH EYES BID [facility] Last Admin: 04/12/17 21:30 Dose: 2 drop Prochlorperazine Edisylate (Compazine Inj*) 5 mg IV Q6H PRN PRN Reason: NAUSEA/VOMITING Vital Signs 04/13/17 04/13/17 04/13/17 03:01 03:30 04:00 Temperature 97.8 F Pulse Rate 77 75 85 Respiratory 16 23 23 Rate Blood Pressure 168/78 (mmHg) O2 Sat by Pulse 93 95 90 Oximetry 04/13/17 04/13/17 04/13/17 04:01 04:30 05:00 Temperature Pulse Rate 75 71 Respiratory 13 16 18 Rate Blood Pressure 166/91 (mmHg) O2 Sat by Pulse 98 92 Oximetry Oxygen Devices in Use Now: CPAP/BiPAP Appearance: Elderly obese male sitting up in bed in NAD. Eyes: No Scleral Icterus Ears/Nose/Mouth/Throat: Mucous Membranes Moist Neck: Trachea Midline Respiratory: Symmetrical Chest Expansion and Respiratory Effort, - - BS+ bilaterally, decreased in bases Cardiovascular: RRR - Normal S1 and S2 Abdominal: NL Sounds; No Tenderness; No Distention - obese Extremities: - - Bilateral LE severe edema. S/p right BKA, CDI to left foot. Neurological: - - AAOx2 (Self and place), ADRIAN Lines/Tubes/Other Access: Clean, Dry and Intact Peripheral IV Result Diagrams: 04/13/17 05:45 04/13/17 05:45 Assess/Plan/Problems-Billing Assessment: Mr. Camargo is a 76yo M with PMH of obesity, CAD s/p stents, diastolic CHF with EF 45-50%, HTN, HLD, type 2 DM, diabetic neuropathy, sarcoidosis, s/p right BKA , chronic wounds, REY, hypothyroidism, recently diagnosed with pneumonia as outpatient, transferred to ED for worsening lethargy and respiratory failure. - Patient Problems (1) Acute hypercapnic respiratory failure Comment: - Suspect a combination of pneumonia, REY, and obesity hypoventilation syndrome. - Will try to release from BiPAP today if tolerated. (2) Healthcare associated bacterial pneumonia Comment: - Legionella and pneumococcal Ag are negative. - Blood cultures show no growth so far. - Continue Vancomycin, Cefepime, and Levofloxacin. - CxR shows better aeration of left base, but done while on BiPAP. Will request Pulm evaluation. (3) UTI (urinary tract infection) Comment: - Present on admission, not Blackmon catheter related. - UA is abnormal and culture is growing Proteus mirabilis - follow sensitivities. (4) Diabetic foot ulcer Comment: - Present on admission. - Continue care with Santyl as per Wound care recommendation. (5) Stage II pressure ulcer of sacral region Comment: - Present on admission. - Continue care as per Wound clinic recommendation. (6) Dysphagia Comment: - He was unable to swallow his pills yesterday - Swallow evaluation. (7) Type 2 diabetes mellitus Comment: - Was hypoglycemic last night, but improved now. - Continue FS q4h and cover with Lispro SS. (8) CKD (chronic kidney disease) stage 3, GFR 30-59 ml/min Comment: - Renal function stable at baseline. (9) HTN (hypertension) Comment: - Cannot take usual oral meds. - Continue Clonidine patch and hydralazine IV. (10) Sarcoidosis Comment: - Continue IV Solumedrol. (11) DVT prophylaxis Comment: - SQ heparin. (12) DNR (do not resuscitate) Status and Disposition: Inpatient for management of respiratory failure and pneumonia requiring >48h. Daughter Brenda) updated.
[2017-04-13] MEDS: Cefepime(*) 1 GM in NS 0.9% 50 ML* 50 ML IVPB SCH ×2 (08:33→20:08)
[2017-04-13] MEDS: Artificial Tears* 15 ML BTL BOTH EYES SCH ×2 (08:33→21:01)
[2017-04-13] MEDS: methylPREDNISolone SOD 40 MG* 1 ML VIAL IV SCH (08:33)
[2017-04-13] MEDS: Collagenase 250 MG/GM OINT* 30 GM TOPICAL SCH ×2 (08:33→13:58)
[2017-04-13] MEDS: Nystatin CREAM* 15 GM TUBE TOPICAL SCH ×2 (08:44→21:01)
[2017-04-13] MEDS ORDERED: Insulin GLARGINE(*) 1 UNITS UNIT SUBCUT SCH (09:00)
[2017-04-13] MEDS ORDERED: Docusate CAP* 100 MG PO SCH (09:00)
[2017-04-13] MEDS ORDERED: Aspirin Low Dose CHEW TAB* 81 MG PO SCH (09:00)
[2017-04-13] MEDS ORDERED: Lactobacillus Acidophilu (GG)* 1 CAP CAP PO SCH (09:00)
[2017-04-13] MEDS ORDERED: Aspirin SUPP* 300 MG PR SCH (09:00)
--- NOTE | 2017-04-13 18:19 | CONS ---
PULMONARY CONSULTATION REPORT: DATE OF CONSULT: 04/13/17 REQUESTED BY: Dr. Gusman. REASON FOR CONSULT: Evaluation of shortness of breath. HISTORY OF PRESENT ILLNESS: The patient is a 76-year-old obese male with a history of coronary artery disease, status post stent, congestive heart failure , hypertension, dyslipidemia, type 2 diabetes, diabetic neuropathy, status post right BKA, sarcoidosis, hypothyroidism, obstructive sleep apnea, who presents from [facility] for evaluation of lethargy and respiratory distress. The patient was admitted 6 months ago for shortness of breath and was treated for CHF exacerbation and fluid overload. The patient reported worsening shortness of breath and cough over the past few days prior to the admission. The patient denies fevers or chills. The patient reported having significant cough, which he describes mostly as being dry. The patient was treated with levofloxacin at the senior care; however, symptoms did not improve. He was progressively getting more lethargic, requiring high FiO2, and was sent to the emergency room for further evaluation. The patient was admitted to the ICU, was placed on noninvasive ventilation. The patient had elevated white count and left shift on admission. His arterial blood gas showed evidence of acute respiratory acidosis while on BiPAP. The patient also was noted to have elevated CRP and troponins that were mildly elevated. The patient had chest x- ray that showed evidence of pulmonary vascular congestion and evidence of air space opacity in the left lower lobe. The patient is currently being treated for pneumonia. Pulmonary consultation was requested for ongoing management of his respiratory status. The patient was seen and examined at bedside earlier today. The patient is a former smoker, quit a long time ago. The patient is alert and awake. The patient reported no history of bronchitis or recurrent COPD exacerbations in the past. The patient reports a history of sarcoidosis; however, does not seem to be knowing much about it. The patient reported doing well since his prior hospitalization 6 months ago. The patient reports that other residents had similar symptoms in the senior care he was residing. The patient is currently on room air with O2 sats in low 90s while on 4 L O2 supplementation. The patient denies shortness of breath currently. The patient reports cough is also improved. PAST MEDICAL HISTORY: 1. Coronary artery disease, status post stent x2. 2. Diastolic CHF with EF of 45 to 50%. 3. Hypertension. 4. Obesity. 5. Hyperlipidemia. 6. Type 2 diabetes. 7. Diabetic neuropathy. 8. Status post right BKA. 9. Sarcoidosis 10. Hypothyroidism. 11. Obstructive sleep apnea. MEDICATIONS: 1. Acetaminophen 2. DuoNeb. 3. Liquid amino acid. 4. Amiodarone. 5. Artificial Tears. 6. Aspirin. 7. Aveeno. 8. Coreg 9. Cholecalciferol. 10. Clonidine 11. Colace 12. Finasteride. 13. Guanfacine. 14. NovoLog 15. Lantus 16. Citrucel. 17. Levofloxacin 18. Levothyroxine. 19. Nystatin. 20. Prednisone 10 mg daily. ALLERGIES: FUROSEMIDE, unknown reaction. FAMILY HISTORY: Reviewed, noncontributory to current complaint. SOCIAL HISTORY: Former smoker, quit 40 years ago. Also with alcohol intake, quit 40 years ago. No history of drug abuse. He lives in [facility]. REVIEW OF SYSTEMS: All systems reviewed and as per HPI. PHYSICAL EXAMINATION: The patient is an obese male in bed, in no apparent distress, dozes off frequently, however easily arousable. Vital Signs: Temperature 98.8, pulse 89 beats per minute, respiratory rate 17 per minute, blood pressure 179/90, O2 sat 92 on 4 L. HEENT: Pupils equal, reactive to light. Mucous membranes moist. Mallampati class 4 airway. Chest: Good entry bilaterally, decreased breath sounds at bases, no wheezing. Cardiovascular: S1 , S2 present. Regular rate and rhythm. Abdomen: Obese, soft. Bowel sounds present. Extremities. Status post right BKA, pitting edema and skin blisters in the left lower extremity. Neuro: Able to follow commands, no focal deficits. DIAGNOSTIC STUDIES/LAB DATA: WBC count 12.9, hemoglobin 10.7, hematocrit 33, platelet count 258. Blood gas analysis showed pCO2 of 53, pH of 7.32, pO2 99, bicarb 25, O2 sat 98.[address] Sodium 130, potassium 4.3, chloride 100, bicarb 22, BUN 45, creatinine 1.24. Influenza A and B negative. Negative for legionella , Strep pneumo. Sputum showed oral jack. Chest x-ray, as described in upon HPI with bibasilar atelectasis and air space opacity in the left base. IMPRESSION/RECOMMENDATION: 76-year-old obese male, a former smoker, with a history of diabetes, diabetic nephropathy, possible chronic obstructive pulmonary disease, obstructive sleep apnea not being treated at home, admitted with possible left lower lobe pneumonia, also with congestive heart failure exacerbation. The patient is being treated with broad-spectrum antibiotics for healthcare- associated pneumonia. Continue with nebs. He does not appear to be in acute chronic obstructive pulmonary disease exacerbation at this time. Continue with antibiotics for HCAP, can discontinue vancomycin. The patient reports a history of sarcoidosis, will obtain CT chest for further evaluation. The patient with acute hypercapnic respiratory failure, appears to be improving with positive pressure ventilation.FiO2 requirements are improving. He would benefit from noninvasive ventilation at home. He will be candidate for Trilogy given chronic hypercapnic respiratory failure. Discussed the above with the patient and Dr. Gusman. Thank you for allowing me to participate in the care of your patient. [id number]/CPS #: [id number] MORIS
[2017-04-14] MEDS: Metoprolol Tartrate IV* 1 MG/ML 5 ML VIAL IV SCH ×2 (00:38→06:21)
[2017-04-14] MEDS: Vancomycin(*) 1,250 MG IV IVPB SCH ×2 (02:16)
[2017-04-14] MEDS: Heparin VIAL(*) 5000 UNITS/ML VIAL (FIVE THOUSAND) SUBCUT SCH ×3 (06:21→21:44)
[2017-04-14] MEDS: Levothyroxine INJ* 100 MCG/5 ML VIAL IV SCH (06:21)
[2017-04-14 07:11] LABS: Hematocrit 31 % (42-52); Hemoglobin 10.4 g/dl (14.0-18.0); Mean Corpuscular HGB Conc 33 g/dl (31-36); Mean Corpuscular Hemoglobin 28 pg (27-31); Mean Corpuscular Volume 85 fL (80-94); Mean Platelet Volume 10 um3 (7.4-10.4); Red Blood Count 3.71 10^6/ul (4.0-5.4); Red Cell Distribution Width 15 % (10.5-15); White Blood Count 12.7 10^3/ul (3.5-10.8)
[2017-04-14 07:18] LABS: Add Diff/Slide Review? Slide Review Added; Comments Flag Yes
[2017-04-14 07:39] LABS: BUN/Creatinine Ratio 32.5 (8-20); EGFR African American 56.9 (>60); EGFR Non-African American 44.3 (>60); Potassium 4.3 mmol/L (3.5-5.0)
[2017-04-14] MEDS ORDERED: Acetaminophen TAB* 325 MG PO PRN (08:21)
[2017-04-14] MEDS: Cefepime(*) 1 GM in NS 0.9% 50 ML* 50 ML IVPB SCH ×2 (08:30→21:43)
[2017-04-14] MEDS: Albuterol/Ipratropium NEB.SOL* Albuterol 2.5 MG/Ipratropium 0.5 MG 3 ML INH SCH ×3 (08:32→20:55)
[2017-04-14] MEDS: Insulin LISPRO* 1 UNITS UNIT SUBCUT SCH ×4 (09:00→22:02)
[2017-04-14] MEDS ORDERED: Amiodarone TAB* 200 MG PO SCH (09:00)
[2017-04-14] MEDS: Artificial Tears* 15 ML BTL BOTH EYES SCH ×2 (09:00→21:45)
[2017-04-14] MEDS: Nystatin CREAM* 15 GM TUBE TOPICAL SCH ×2 (09:15→21:44)
[2017-04-14] MEDS: Levofloxacin 750 MG IVPREMIX(* 750 MG/150 ML BAG IVPB SCH (09:36)
[2017-04-14] MEDS: Amiodarone TAB* 200 MG PO SCH (09:38)
[2017-04-14] MEDS: Aspirin EC Low Dose* 81 MG TAB.EC PO SCH (09:38)
[2017-04-14] MEDS: cloNIDine TAB* 0.1 MG PO SCH ×3 (09:39→21:44)
[2017-04-14] MEDS: methylPREDNISolone SOD 40 MG* 1 ML VIAL IV SCH (09:39)
[2017-04-14] MEDS: Docusate CAP* 100 MG PO SCH (09:43)
--- NOTE | 2017-04-14 13:19 | PN ---
Subjective Date of Service: 04/14/17 Interval History: HOSPITALIST PROGRESS NOTE Patient seen and examined at bedside. Slept well with BiPAP, much more awake today. Breathing is easier, moist cough but unable to expectorate. Family History: Unchanged from Admission Social History: Unchanged from Admission Past Medical History: Unchanged from Admission Objective Active Medications: Acetaminophen (Tylenol Tab*) 650 mg PO Q6H PRN PRN Reason: pain/fever Albuterol/Ipratropium (Duoneb (Albuterol 2.5 Mg/Ipratropium 0.5 Mg)) 1 neb INH TID [facility] Last Admin: 04/14/17 08:32 Dose: 1 neb Amiodarone HCl (Cordarone Tab*) 100 mg PO Q48H [facility] Last Admin: 04/14/17 09:38 Dose: 100 mg Aspirin (Aspirin Ec Low Dose*) 81 mg PO DAILY [facility] Last Admin: 04/14/17 09:38 Dose: 81 mg Carvedilol (Coreg Tab*) 25 mg PO BID [facility] Clonidine HCl (Catapres Tab*) 0.2 mg PO TID [facility] Last Admin: 04/14/17 09:39 Dose: 0.2 mg Collagenase (Santyl 250 Mg/Gm Oint*) 1 applic TOPICAL DAILY [facility] Last Admin: 04/13/17 13:58 Dose: Not Given Dextrose (D50w Syringe 50 Ml*) 12.5 gm IV PUSH .FOR FS < 60 - SS PRN PRN Reason: FS < 60 Last Admin: 04/12/17 17:01 Dose: 12.5 gm Docusate Sodium (Colace Cap*) 200 mg PO DAILY [facility] Last Admin: 04/14/17 09:43 Dose: Not Given Finasteride (Proscar Tab*) 5 mg PO BEDTIME [facility] Heparin Sodium (Porcine) (Heparin Vial(*)) 5,000 units SUBCUT Q8HR [facility] Last Admin: 04/14/17 06:21 Dose: 5,000 units Hydralazine HCl (Apresoline Iv*) 10 mg IV SLOW PU Q6H PRN PRN Reason: SBP>180 Last Admin: 04/12/17 16:00 Dose: 10 mg Levofloxacin/Dextrose (Levaquin 750 Mg Ivpremix(*)) 750 mg in 150 mls @ 100 mls /hr IVPB Q48H [facility] Last Admin: 04/14/17 09:36 Dose: 100 mls/hr Cefepime HCl 1 gm/ Sodium (Chloride) 50 mls @ 100 mls/hr IVPB Q12H [facility] Last Admin: 04/14/17 08:30 Dose: 100 mls/hr Insulin Human Lispro (Humalog*) 0 units SUBCUT ACHS [facility] PRN Reason: Protocol Last Admin: 04/14/17 09:00 Dose: 6 units Lactobacillus Rhamnosus (Culturelle*) 1 cap PO BID [facility] Levothyroxine Sodium (Synthroid Tab*) 175 mcg PO MOTUWETHFRSA@0600 [facility] Methylprednisolone Sodium Succinate (Solu-Medrol 40 Mg) 20 mg IV DAILY [facility] Last Admin: 04/14/17 09:39 Dose: 20 mg Nystatin (Nystatin Cream*) 1 applic TOPICAL BID [facility] Last Admin: 04/13/17 21:01 Dose: 1 applic Polyvinyl Alcohol (Polyvinyl Alcohol 1.4% Opth*) 2 drop BOTH EYES BID [facility] Last Admin: 04/13/17 21:01 Dose: 2 drop Prochlorperazine Edisylate (Compazine Inj*) 5 mg IV Q6H PRN PRN Reason: NAUSEA/VOMITING Vital Signs 04/14/17 04/14/17 04/14/17 07:00 07:01 08:00 Temperature 97.8 F Pulse Rate 76 75 79 Respiratory 20 16 22 Rate Blood Pressure 161/90 (mmHg) O2 Sat by Pulse 96 99 98 Oximetry Oxygen Devices in Use Now: CPAP/BiPAP Appearance: Elderly obese male lying in bed in [facility]. Eyes: No Scleral Icterus Ears/Nose/Mouth/Throat: Mucous Membranes Moist Neck: Trachea Midline Respiratory: Symmetrical Chest Expansion and Respiratory Effort, - - BS+ bilaterally coarse, decreased in left base Cardiovascular: RRR - Normal S1 and S2 Abdominal: NL Sounds; No Tenderness; No Distention - obese Extremities: - - Severe bilateral LE edema, CDI to left foot Neurological: Alert and Oriented x 3, NL Muscle Strength and Tone Lines/Tubes/Other Access: Clean, Dry and Intact Peripheral IV Nutrition: Taking PO's Result Diagrams: 04/14/17 06:51 04/14/17 06:51 Assess/Plan/Problems-Billing Assessment: Mr. Camargo is a 76yo M with PMH of obesity, CAD s/p stents, diastolic CHF with EF 45-50%, HTN, HLD, type 2 DM, diabetic neuropathy, sarcoidosis, s/p right BKA , chronic wounds, REY, hypothyroidism, recently diagnosed with pneumonia as outpatient, transferred to ED for worsening lethargy and respiratory failure. - Patient Problems (1) Acute hypercapnic respiratory failure Comment: - Suspect a combination of pneumonia, REY, and obesity hypoventilation syndrome. - Pulm input appreciated - recommended Trilogy on discharge. For now he'll wear BiPAP overnight. (2) Healthcare associated bacterial pneumonia Comment: - Legionella and pneumococcal Ag are negative. - Blood cultures show no growth so far. - Continue Vancomycin, Cefepime, and Levofloxacin. - CxR shows better aeration of left base, but done while on BiPAP. - Pulm evaluation appreciated - plan for CT chest today. (3) UTI (urinary tract infection) Comment: - Present on admission, not Blackmon catheter related. - UA is abnormal and culture is growing Proteus mirabilis - sensitive to Cefepime. (4) Diabetic foot ulcer Comment: - Present on admission. - Continue care with Santyl as per Wound care recommendation. (5) Stage II pressure ulcer of sacral region Comment: - Present on admission. - Continue care as per Wound clinic recommendation. (6) Dysphagia Comment: - He passed his nursing swallow evaluation - continue PO diet and resume PO meds. (7) Type 2 diabetes mellitus Comment: - Trending up now his PO intake is improving. - Resume Lantus and continue Lispro SS. (8) CKD (chronic kidney disease) stage 3, GFR 30-59 ml/min Comment: - Renal function stable. (9) HTN (hypertension) Comment: - Will resume PO meds (Clonidine and Coreg). - Continue to monitor. (10) Sarcoidosis Comment: - Continue IV Solumedrol. (11) DVT prophylaxis Comment: - SQ heparin. (12) DNR (do not resuscitate) Status and Disposition: Inpatient for management of respiratory failure and pneumonia requiring >48h. If no plan for bronchoscopy, will likely transfer out of ICU tomorrow.
[2017-04-14] MEDS ORDERED: Insulin GLARGINE(*) 1 UNITS UNIT SUBCUT SCH (14:00)
[2017-04-14] MEDS: Carvedilol TAB* 25 MG PO SCH ×2 (14:00→21:44)
[2017-04-14] MEDS: Lactobacillus Acidophilu (GG)* 1 CAP CAP PO SCH ×2 (14:00→21:45)
--- NOTE | 2017-04-14 14:24 | PN ---
Progress Note - Progress Note Date of Service: 04/14/17 - pulm consult f/u note Note: Pt seen and examined at bedside. Pt is more alert today. Reports that he is sick of coughing and that his chest hurts with coughing Active Medications Generic Name Dose Route Start Last Admin Trade Name Freq PRN Reason Stop Dose Admin Acetaminophen 650 mg 04/14/17 08:21 Tylenol Tab* PO Q6H PRN pain/fever Albuterol/Ipratropium 1 neb 04/12/17 14:00 04/14/17 14:17 Duoneb (Albuterol 2.5 Mg/Ipratropium 0.5 Mg) INH Not Given TID [facility] Amiodarone HCl 100 mg 04/14/17 09:00 04/14/17 09:38 Cordarone Tab* PO 100 mg Q48H [facility] Administration Aspirin 81 mg 04/14/17 09:00 04/14/17 09:38 Aspirin Ec Low Dose* PO 81 mg DAILY [facility] Administration Carvedilol 25 mg 04/14/17 09:00 Coreg Tab* PO BID [facility] Clonidine HCl 0.2 mg 04/14/17 09:00 04/14/17 09:39 Catapres Tab* PO 0.2 mg TID [facility] Administration Collagenase 1 applic 04/13/17 09:00 04/13/17 13:58 Santyl 250 Mg/Gm Oint* TOPICAL Not Given DAILY [facility] Dextrose 12.5 gm 04/12/17 10:55 04/12/17 17:01 D50w Syringe 50 Ml* IV PUSH 12.5 gm .FOR FS < 60 - SS PRN Administration FS < 60 Docusate Sodium 200 mg 04/14/17 09:00 04/14/17 09:43 Colace Cap* PO Not Given DAILY [facility] Finasteride 5 mg 04/14/17 21:00 Proscar Tab* PO BEDTIME [facility] Heparin Sodium (Porcine) 5,000 units 04/12/17 14:00 04/14/17 06:21 Heparin Vial(*) SUBCUT 5,000 units Q8HR [facility] Administration Hydralazine HCl 10 mg 04/12/17 15:33 04/12/17 16:00 Apresoline Iv* IV SLOW PU 10 mg Q6H PRN Administration SBP>180 Levofloxacin/Dextrose 750 mg in 150 mls @ 100 mls/hr 04/14/17 08:00 04/14/17 09:36 Levaquin 750 Mg Ivpremix(*) IVPB 100 mls/hr Q48H [facility] Administration Cefepime HCl 1 gm/ Sodium 50 mls @ 100 mls/hr 04/12/17 20:00 04/14/17 08:30 Chloride IVPB 100 mls/hr Q12H [facility] Administration Insulin Glargine 20 units 04/14/17 14:00 Lantus(*) SUBCUT Q24H [facility] Insulin Human Lispro 0 units 04/13/17 21:00 04/14/17 09:00 Humalog* SUBCUT 6 units ACHS [facility] Administration Protocol Lactobacillus Rhamnosus 1 cap 04/14/17 09:00 Culturelle* PO BID [facility] Levothyroxine Sodium 175 mcg 04/15/17 06:00 Synthroid Tab* PO MOTUWETHFRSA@0600 [facility] Methylprednisolone Sodium Succinate 20 mg 04/12/17 12:00 04/14/17 09:39 Solu-Medrol 40 Mg IV 20 mg DAILY [facility] Administration Nystatin 1 applic 04/12/17 21:00 04/13/17 21:01 Nystatin Cream* TOPICAL 1 applic BID [facility] Administration Polyvinyl Alcohol 2 drop 04/12/17 21:00 04/13/17 21:01 Polyvinyl Alcohol 1.4% Opth* BOTH EYES 2 drop BID [facility] Administration Prochlorperazine Edisylate 5 mg 04/12/17 10:54 Compazine Inj* IV Q6H PRN NAUSEA/VOMITING Vital Signs Temp Pulse Resp BP Pulse Ox 97.8 F 79 22 161/90 98 04/14/17 08:00 04/14/17 08:00 04/14/17 08:00 04/14/17 07:00 04/14/17 08:00 Gen: Obese male lying in bed in NAD, falls asleep easily, oriented x3 HEENT: No Scleral Icterus, Mucous Membranes Moist, Trachea Midline Respiratory: Symmetrical Chest Expansion and Respiratory Effort, coarse breath sounds, decreased in left base Cardiovascular: RRR, Normal S1 and S2 Abdominal: NL Sounds; No Tenderness; No Distention, obese Extremities: Bilateral LE edema, CDI to left foot Neurological: Alert and Oriented x 3, NL Muscle Strength and Tone Laboratory Results - last 24 hr 04/13/17 04/13/17 04/13/17 15:09 17:49 21:03 WBC RBC Hgb Hct MCV MCH MCHC RDW Plt Count MPV Neut % (Auto) Lymph % (Auto) [place] % (Auto) Eos % (Auto) Baso % (Auto) Absolute Neuts (auto) Absolute Lymphs (auto) Absolute Monos (auto) Absolute Eos (auto) Absolute Basos (auto) Absolute Nucleated RBC Nucleated RBC % Normal RBC Morphology Acanthocytes (Spur) Sodium Potassium Chloride Carbon Dioxide Anion Gap BUN Creatinine Est GFR ( Amer) Est GFR (Non-Af Amer) BUN/Creatinine Ratio Glucose POC Glucose (mg/dL) 141 H 123 H 213 H Calcium 04/14/17 04/14/17 04/14/17 06:51 06:51 12:47 WBC 12.7 H RBC 3.71 L Hgb 10.4 L Hct 31 L MCV 85 MCH 28 MCHC 33 RDW 15 Plt Count 261 MPV 10 Neut % (Auto) 85.2 H Lymph % (Auto) 3.7 L [place] % (Auto) 10.2 H Eos % (Auto) 0.1 Baso % (Auto) 0.8 Absolute Neuts (auto) 10.8 H Absolute Lymphs (auto) 0.5 L Absolute Monos (auto) 1.3 H Absolute Eos (auto) 0 Absolute Basos (auto) 0.1 Absolute Nucleated RBC 0 Nucleated RBC % 0 Normal RBC Morphology Not Reportable Acanthocytes (Spur) 1+ Sodium 132 L Potassium 4.3 Chloride 101 Carbon Dioxide 26 Anion Gap 5 BUN 50 H Creatinine 1.54 H Est GFR ( Amer) 56.9 Est GFR (Non-Af Amer) 44.3 BUN/Creatinine Ratio 32.5 H Glucose 203 H POC Glucose (mg/dL) 287 H Calcium 8.0 L I/R: 76yo obese male with h/o obesity, CAD s/p stents, diastolic CHF with EF 45-50%, HTN, HLD, type 2 DM, diabetic neuropathy, sarcoidosis, s/p right BKA, chronic wounds, REY, hypothyroidism, recently diagnosed with pneumonia as outpatient, transferred to ED for worsening lethargy and respiratory failure, found to have acute hypercapnic resp failure Pt started on NIPPV with significant improvement Doesnot know that he has sarcoidosis Doesnot think he was dx with REY Reports feeling better with NIPPV c/w nebs, pt able to cough secretions Can taper off prednisone. Arrangement for Trilogy upon d/c Awaiting CT chest c/w abx
[2017-04-14] MEDS ORDERED: Vancomycin Trough Check NOTE FOLLOW UP ONE (14:30)
--- NOTE | 2017-04-14 15:26 | RAD ---
HISTORY: Left lower lobes pneumonia, sarcoidosis COMPARISONS: Chest x-ray dated April 13, 2017 TECHNIQUE: Multiple contiguous axial CT scans of the chest were obtained without intravenous contrast. Coronal and sagittal multiplanar reformations are also submitted for review. FINDINGS: The study is limited by the lack of intravenous contrast. This limits evaluation of the solid organs and vasculature. Evaluation is also limited by patient breathing motion artifact. NECK AND THYROID: The lower neck and thyroid are unremarkable. CHEST WALL: There is no lower cervical, axillary, or supraclavicular lymphadenopathy by size criteria. HEART AND PERICARDIUM: The heart is unremarkable. AORTA AND PULMONARY VASCULATURE: There is calcification of the thoracic aorta. The pulmonary vasculature is unremarkable. MEDIASTINUM: There is no mediastinal lymphadenopathy by size criteria. KYRIE: Evaluation of the kyrie is limited by the lack of intravenous contrast. There is no obvious hilar lymphadenopathy by size criteria. AIRWAY AND ESOPHAGUS: The airway is unremarkable, without endobronchial filling defect. The esophagus is grossly normal. LUNG PARENCHYMA: There is compressive atelectasis of left lung base. PLEURA: There are moderate left and small right pleural effusions. UPPER ABDOMEN: Gallstones are noted. BONES AND SOFT TISSUES: Degenerative changes are noted OTHER: None. IMPRESSION: 1. LIMITED STUDY. 2. MODERATE LEFT AND SMALL RIGHT PLEURAL EFFUSIONS WITH LEFT BASILAR COMPRESSIVE ATELECTASIS. 3. CHOLELITHIASIS
[2017-04-14] MEDS: Collagenase 250 MG/GM OINT* 30 GM TOPICAL SCH (16:08)
[2017-04-14] MEDS: Finasteride TAB* 5 MG PO SCH (21:43)
[2017-04-15] MEDS: Levothyroxine TAB* 175 MCG TAB PO SCH (05:42)
[2017-04-15] MEDS: Heparin VIAL(*) 5000 UNITS/ML VIAL (FIVE THOUSAND) SUBCUT SCH ×3 (05:42→21:23)
[2017-04-15 06:50] LABS: Hematocrit 32 % (42-52); Hemoglobin 10.5 g/dl (14.0-18.0); Mean Corpuscular HGB Conc 33 g/dl (31-36); Mean Corpuscular Hemoglobin 28 pg (27-31); Mean Corpuscular Volume 86 fL (80-94); Mean Platelet Volume 10 um3 (7.4-10.4); Red Blood Count 3.77 10^6/ul (4.0-5.4); Red Cell Distribution Width 15 % (10.5-15); White Blood Count 14.4 10^3/ul (3.5-10.8)
[2017-04-15 06:52] LABS: Comments Flag Yes
[2017-04-15 07:00] LABS: BUN/Creatinine Ratio 32.9 (8-20); Calcium 8.2 mg/dL (8.6-10.3); EGFR African American 51.8 (>60); EGFR Non-African American 40.3 (>60)
[2017-04-15 07:03] LABS: Potassium 5.1 mmol/L (3.5-5.0)
[2017-04-15] MEDS: Cefepime(*) 1 GM in NS 0.9% 50 ML* 50 ML IVPB SCH ×2 (08:00→20:37)
--- NOTE | 2017-04-15 08:21 | PN ---
Subjective Date of Service: 04/15/17 Interval History: Patient states cough is continued. Feels less SOB at rest. Tolerated BiPAP overnight, going onto 2L NC this AM. Has appetite for breakfast. Has been seeing Dr. Moon at wound clinic re L toe gangrene, sacral decub. Patient is full [facility] transfer. Lives at SNF. Family History: Unchanged from Admission Social History: Unchanged from Admission Past Medical History: Unchanged from Admission Objective Active Medications: Acetaminophen (Tylenol Tab*) 650 mg PO Q6H PRN PRN Reason: pain/fever Albuterol/Ipratropium (Duoneb (Albuterol 2.5 Mg/Ipratropium 0.5 Mg)) 1 neb INH TID [facility] Last Admin: 04/14/17 20:55 Dose: 1 neb Amiodarone HCl (Cordarone Tab*) 100 mg PO Q48H [facility] Last Admin: 04/14/17 09:38 Dose: 100 mg Aspirin (Aspirin Ec Low Dose*) 81 mg PO DAILY [facility] Last Admin: 04/14/17 09:38 Dose: 81 mg Carvedilol (Coreg Tab*) 25 mg PO BID [facility] Last Admin: 04/14/17 21:44 Dose: 25 mg Clonidine HCl (Catapres Tab*) 0.2 mg PO TID [facility] Last Admin: 04/14/17 21:44 Dose: 0.2 mg Collagenase (Santyl 250 Mg/Gm Oint*) 1 applic TOPICAL DAILY [facility] Last Admin: 04/14/17 16:08 Dose: Not Given Dextrose (D50w Syringe 50 Ml*) 12.5 gm IV PUSH .FOR FS < 60 - SS PRN PRN Reason: FS < 60 Last Admin: 04/12/17 17:01 Dose: 12.5 gm Docusate Sodium (Colace Cap*) 200 mg PO DAILY [facility] Last Admin: 04/14/17 09:43 Dose: Not Given Finasteride (Proscar Tab*) 5 mg PO BEDTIME [facility] Last Admin: 04/14/17 21:43 Dose: 5 mg Heparin Sodium (Porcine) (Heparin Vial(*)) 5,000 units SUBCUT Q8HR [facility] Last Admin: 04/15/17 05:42 Dose: 5,000 units Hydralazine HCl (Apresoline Iv*) 10 mg IV SLOW PU Q6H PRN PRN Reason: SBP>180 Last Admin: 04/12/17 16:00 Dose: 10 mg Levofloxacin/Dextrose (Levaquin 750 Mg Ivpremix(*)) 750 mg in 150 mls @ 100 mls /hr IVPB Q48H [facility] Last Admin: 04/14/17 09:36 Dose: 100 mls/hr Cefepime HCl 1 gm/ Sodium (Chloride) 50 mls @ 100 mls/hr IVPB Q12H [facility] Last Admin: 04/15/17 08:00 Dose: 100 mls/hr Insulin Glargine (Lantus(*)) 20 units SUBCUT Q24H [facility] Insulin Human Lispro (Humalog*) 0 units SUBCUT ACHS [facility] PRN Reason: Protocol Last Admin: 04/14/17 22:02 Dose: 12 units Lactobacillus Rhamnosus (Culturelle*) 1 cap PO BID [facility] Last Admin: 04/14/17 21:45 Dose: 1 cap Levothyroxine Sodium (Synthroid Tab*) 175 mcg PO MOTUWETHFRSA@0600 [facility] Last Admin: 04/15/17 05:42 Dose: 175 mcg Methylprednisolone Sodium Succinate (Solu-Medrol 40 Mg) 20 mg IV DAILY [facility] Last Admin: 04/14/17 09:39 Dose: 20 mg Nystatin (Nystatin Cream*) 1 applic TOPICAL BID [facility] Last Admin: 04/14/17 21:44 Dose: 1 applic Polyvinyl Alcohol (Polyvinyl Alcohol 1.4% Opth*) 2 drop BOTH EYES BID [facility] Last Admin: 04/14/17 21:45 Dose: 2 drop Prochlorperazine Edisylate (Compazine Inj*) 5 mg IV Q6H PRN PRN Reason: NAUSEA/VOMITING Vital Signs 04/15/17 04/15/17 04/15/17 04:00 04:01 05:00 Temperature Pulse Rate 59 60 Respiratory 23 21 26 Rate Blood Pressure 163/79 166/84 (mmHg) O2 Sat by Pulse 98 99 Oximetry 04/15/17 04/15/17 04/15/17 05:01 06:00 06:06 Temperature Pulse Rate 61 63 Respiratory 22 21 17 Rate Blood Pressure 181/87 177/88 (mmHg) O2 Sat by Pulse 99 99 Oximetry 04/15/17 07:00 Temperature Pulse Rate 58 Respiratory 20 Rate Blood Pressure 166/77 (mmHg) O2 Sat by Pulse 98 Oximetry Oxygen Devices in Use Now: Nasal Cannula Appearance: no resp distress Eyes: PERRLA Ears/Nose/Mouth/Throat: Clear Oropharnyx Neck: NL Appearance and Movements; NL JVP Respiratory: - - diminished breath sounds at R base, no rales/wheezes otherwise Cardiovascular: NL Sounds; No Murmurs; No JVD, RRR, - - edema 2+ LLE Abdominal: NL Sounds; No Tenderness; No Distention Lymphatic: No Cervical Adenopathy Extremities: - - right AKA Skin: - - erythema, extensive area RT thigh, LT calf w/ oval erythematous area, 6x8 cm, also L foot w/ chronic venous changes, nodularity near ankle, and dry gangrene L 3-4-5th toes distally Neurological: Alert and Oriented x 3 Lines/Tubes/Other Access: Clean, Dry and Intact Peripheral IV Nutrition: Taking PO's Result Diagrams: 04/15/17 05:57 04/15/17 05:57 Additional Lab and Data: Lab Results Microbiology and Other Data: Microbiology 04/12/17 11:49 Legionella Urinary Antigen - Final Urine Negative Legionella Streptococcus pneumoniae Ag Screen - Final Negative S. pneumo Antigen Diagnostic Imaging: Reviewed CT chest, there is moderate R-sided pleural effusion, dependent/ layering Assess/Plan/Problems-Billing Assessment: Mr. Camargo is a 76yo M with PMH CAD, DM2, here w/ pneumonia, REY, sarcoidosis, resulting in hypercapneic respiratory failure. - Patient Problems (1) Acute hypercapnic respiratory failure Current Visit: Yes Status: Acute Priority: High Code(s): J96.02 - ACUTE RESPIRATORY FAILURE WITH HYPERCAPNIA SNOMED Code(s): 329901790 Comment: - Combination of pneumonia, REY, and obesity hypoventilation syndrome. - Responding well to BiPAP, will go home w/ Trilogy device (2) Sarcoidosis Current Visit: Yes Status: Chronic Priority: Medium Code(s): D86.9 - SARCOIDOSIS, UNSPECIFIED SNOMED Code(s): 95575823 Comment: - Continue IV Solumedrol. - Will discuss bronchoscopy w/ Dr. Deng (3) Pleural effusion associated with pulmonary infection Current Visit: Yes Status: Acute Priority: Medium Code(s): J18.9 - PNEUMONIA, UNSPECIFIED ORGANISM; J91.8 - PLEURAL EFFUSION IN OTHER CONDITIONS CLASSIFIED ELSEWHERE SNOMED Code(s): 53137710 Comment: -Will discuss potential thoracentesis w/ Dr. Deng -May yield organism to guide treatment. (4) Type 2 diabetes mellitus Current Visit: Yes Status: Acute Priority: Medium Comment: - Sugars not controlled due to IV steroids - Titrated up Lantus and added carb-counting to corrective Lispro SS. (5) Diabetic foot ulcer Current Visit: Yes Status: Chronic Priority: High Code(s): E11.621 - TYPE 2 DIABETES MELLITUS WITH FOOT ULCER; L97.509 - NON-PRESSURE CHRONIC ULCER OTH PRT UNSP FOOT W UNSP SEVERITY SNOMED Code(s): 696097738 Comment: - Present on admission. - Continue care with Santyl as per Wound care recommendation. (6) DNR (do not resuscitate) Current Visit: Yes Status: Chronic Priority: Low Comment: code status is appropriate. Status and Disposition: ICU for management of respiratory failure and pneumonia requiring >48h. Consider transfer out of ICU after discussion w/ Dr. Deng.
[2017-04-15] MEDS: Albuterol/Ipratropium NEB.SOL* Albuterol 2.5 MG/Ipratropium 0.5 MG 3 ML INH SCH ×3 (08:47→19:56)
[2017-04-15] MEDS: cloNIDine TAB* 0.1 MG PO SCH ×3 (09:08→21:22)
[2017-04-15] MEDS: Artificial Tears* 15 ML BTL BOTH EYES SCH ×2 (09:08→21:20)
[2017-04-15] MEDS: Docusate CAP* 100 MG PO SCH (09:09)
[2017-04-15] MEDS: Aspirin EC Low Dose* 81 MG TAB.EC PO SCH (09:09)
[2017-04-15] MEDS: methylPREDNISolone SOD 40 MG* 1 ML VIAL IV SCH (09:10)
[2017-04-15] MEDS: Insulin LISPRO* 1 UNITS UNIT SUBCUT SCH ×6 (09:11→22:15)
[2017-04-15] MEDS: Insulin GLARGINE(*) 1 UNITS UNIT SUBCUT SCH (09:11)
[2017-04-15] MEDS: Lactobacillus Acidophilu (GG)* 1 CAP CAP PO SCH ×2 (09:27→21:22)
[2017-04-15] MEDS: Carvedilol TAB* 25 MG PO SCH ×2 (09:27→21:21)
[2017-04-15] MEDS: Collagenase 250 MG/GM OINT* 30 GM TOPICAL SCH (10:30)
[2017-04-15] MEDS: Nystatin CREAM* 15 GM TUBE TOPICAL SCH ×2 (10:30→21:23)
[2017-04-15] MEDS: Finasteride TAB* 5 MG PO SCH (21:22)
[2017-04-16 05:21] LABS: Hematocrit 34 % (42-52); Hemoglobin 11.1 g/dl (14.0-18.0); Mean Corpuscular HGB Conc 33 g/dl (31-36); Mean Corpuscular Hemoglobin 28 pg (27-31); Mean Corpuscular Volume 85 fL (80-94); Mean Platelet Volume 10 um3 (7.4-10.4); Red Blood Count 4.01 10^6/ul (4.0-5.4); Red Cell Distribution Width 15 % (10.5-15); White Blood Count 18.5 10^3/ul (3.5-10.8)
[2017-04-16 05:38] LABS: BUN/Creatinine Ratio 37.7 (8-20); Calcium 8.6 mg/dL (8.6-10.3); EGFR African American 58.2 (>60); EGFR Non-African American 45.3 (>60)
[2017-04-16 05:39] LABS: Potassium 5.6 mmol/L (3.5-5.0)
[2017-04-16] MEDS: Heparin VIAL(*) 5000 UNITS/ML VIAL (FIVE THOUSAND) SUBCUT SCH ×3 (05:56→20:29)
[2017-04-16] MEDS: Cefepime(*) 1 GM in NS 0.9% 50 ML* 50 ML IVPB SCH ×2 (08:18→20:28)
[2017-04-16] MEDS: Levofloxacin 750 MG IVPREMIX(* 750 MG/150 ML BAG IVPB SCH (08:21)
[2017-04-16] MEDS: Albuterol/Ipratropium NEB.SOL* Albuterol 2.5 MG/Ipratropium 0.5 MG 3 ML INH SCH ×3 (08:31→19:32)
[2017-04-16] MEDS: Lactobacillus Acidophilu (GG)* 1 CAP CAP PO SCH ×2 (08:39→20:28)
[2017-04-16] MEDS: Amiodarone TAB* 200 MG PO SCH (08:40)
[2017-04-16] MEDS: cloNIDine TAB* 0.1 MG PO SCH ×3 (08:40→20:29)
[2017-04-16] MEDS: Docusate CAP* 100 MG PO SCH (08:40)
[2017-04-16] MEDS: Aspirin EC Low Dose* 81 MG TAB.EC PO SCH (08:40)
[2017-04-16] MEDS: Nystatin CREAM* 15 GM TUBE TOPICAL SCH ×2 (08:42→20:30)
[2017-04-16] MEDS: Artificial Tears* 15 ML BTL BOTH EYES SCH ×2 (08:42→20:30)
[2017-04-16] MEDS: Collagenase 250 MG/GM OINT* 30 GM TOPICAL SCH (08:44)
[2017-04-16] MEDS: Insulin GLARGINE(*) 1 UNITS UNIT SUBCUT SCH (08:45)
[2017-04-16] MEDS: Carvedilol TAB* 25 MG PO SCH ×2 (08:47→20:28)
[2017-04-16] MEDS: predniSONE TAB* 10 MG PO SCH (08:47)
--- NOTE | 2017-04-16 08:52 | PN ---
Subjective Date of Service: 04/16/17 Interval History: Patient is breathing better, coughing less. Has good appetite. Denies pain. Seen by Dr. Leigh today. He advised keeping L toes dry. He is being repositioned frequently due to sacral decub. Family History: Unchanged from Admission Social History: Unchanged from Admission Past Medical History: Unchanged from Admission Objective Active Medications: Acetaminophen (Tylenol Tab*) 650 mg PO Q6H PRN PRN Reason: pain/fever Albuterol/Ipratropium (Duoneb (Albuterol 2.5 Mg/Ipratropium 0.5 Mg)) 1 neb INH TID [facility] Last Admin: 04/16/17 08:31 Dose: 1 neb Amiodarone HCl (Cordarone Tab*) 100 mg PO Q48H [facility] Last Admin: 04/14/17 09:38 Dose: 100 mg Amlodipine Besylate (Norvasc Tab*) 5 mg PO BID [facility] Aspirin (Aspirin Ec Low Dose*) 81 mg PO DAILY [facility] Last Admin: 04/15/17 09:09 Dose: 81 mg Carvedilol (Coreg Tab*) 25 mg PO BID [facility] Last Admin: 04/15/17 21:21 Dose: 25 mg Clonidine HCl (Catapres Tab*) 0.2 mg PO TID [facility] Last Admin: 04/15/17 21:22 Dose: 0.2 mg Collagenase (Santyl 250 Mg/Gm Oint*) 1 applic TOPICAL DAILY [facility] Last Admin: 04/15/17 10:30 Dose: 1 applic Dextrose (D50w Syringe 50 Ml*) 12.5 gm IV PUSH .FOR FS < 60 - SS PRN PRN Reason: FS < 60 Last Admin: 04/12/17 17:01 Dose: 12.5 gm Docusate Sodium (Colace Cap*) 200 mg PO DAILY [facility] Last Admin: 04/15/17 09:09 Dose: 200 mg Finasteride (Proscar Tab*) 5 mg PO BEDTIME [facility] Last Admin: 04/15/17 21:22 Dose: 5 mg Heparin Sodium (Porcine) (Heparin Vial(*)) 5,000 units SUBCUT Q8HR [facility] Last Admin: 04/16/17 05:56 Dose: 5,000 units Hydralazine HCl (Apresoline Iv*) 10 mg IV SLOW PU Q6H PRN PRN Reason: SBP>180 Last Admin: 04/12/17 16:00 Dose: 10 mg Levofloxacin/Dextrose (Levaquin 750 Mg Ivpremix(*)) 750 mg in 150 mls @ 100 mls /hr IVPB Q48H [facility] Last Admin: 04/16/17 08:21 Dose: 100 mls/hr Cefepime HCl 1 gm/ Sodium (Chloride) 50 mls @ 100 mls/hr IVPB Q12H [facility] Last Admin: 04/16/17 08:18 Dose: 100 mls/hr Influenza Virus Vaccine (Fluarix *Quad* *) 0.5 ml IM .ONCE ONE Stop: 04/16/17 09:01 Insulin Glargine (Lantus(*)) 50 units SUBCUT Q24HR [facility] Insulin Human Lispro (Humalog*) 0 units SUBCUT ACHS [facility] PRN Reason: Protocol Last Admin: 04/15/17 22:15 Dose: 6 units Insulin Human Lispro (Humalog*) 0 units SUBCUT AC [facility] PRN Reason: Protocol Last Admin: 04/15/17 18:08 Dose: 6 unit Lactobacillus Rhamnosus (Culturelle*) 1 cap PO BID [facility] Last Admin: 04/15/17 21:22 Dose: 1 cap Levothyroxine Sodium (Synthroid Tab*) 175 mcg PO MOTUWETHFRSA@0600 [facility] Last Admin: 04/15/17 05:42 Dose: 175 mcg Nystatin (Nystatin Cream*) 1 applic TOPICAL BID [facility] Last Admin: 04/15/17 21:23 Dose: Not Given Polyvinyl Alcohol (Polyvinyl Alcohol 1.4% Opth*) 2 drop BOTH EYES BID [facility] Last Admin: 04/15/17 21:20 Dose: 2 drop Prednisone (Deltasone Tab*) 30 mg PO DAILY [facility] Prochlorperazine Edisylate (Compazine Inj*) 5 mg IV Q6H PRN PRN Reason: NAUSEA/VOMITING Vital Signs 04/16/17 04/16/17 04/16/17 00:17 01:00 02:00 Temperature Pulse Rate 62 61 Respiratory 18 18 20 Rate Blood Pressure 181/87 177/85 (mmHg) O2 Sat by Pulse 97 97 Oximetry 04/16/17 04/16/17 04/16/17 03:00 03:54 04:00 Temperature 36.6 C Pulse Rate 61 60 Respiratory 19 18 Rate Blood Pressure 180/85 189/88 (mmHg) O2 Sat by Pulse 97 98 Oximetry 04/16/17 04/16/17 04/16/17 05:00 05:01 06:00 Temperature Pulse Rate 64 Respiratory 21 16 17 Rate Blood Pressure 189/90 190/90 (mmHg) O2 Sat by Pulse 97 Oximetry Oxygen Devices in Use Now: Nasal Cannula Appearance: no resp distress Eyes: No Scleral Icterus Neck: Trachea Midline Respiratory: - - diminished RT base, no rales/wheezes Cardiovascular: NL Sounds; No Murmurs; No JVD, RRR Abdominal: NL Sounds; No Tenderness; No Distention, No Hepatosplenomegaly Lymphatic: No Cervical Adenopathy Extremities: - - 2+ edema LLE, RLE w/ AK amp Skin: - - sacral decub w/ bandage, L 3-4-5th toes w/ dry gangrene at tips Lines/Tubes/Other Access: Clean, Dry and Intact Peripheral IV Nutrition: Taking PO's Result Diagrams: 04/16/17 05:05 04/16/17 05:05 Additional Lab and Data: Lab Results Laboratory Tests 04/15/17 04/15/17 04/15/17 08:06 11:58 17:09 Glucose POC Glucose (mg/dL) 375 H 361 H 233 H 04/15/17 04/16/17 21:19 05:05 Glucose 220 H POC Glucose (mg/dL) 223 H Microbiology and Other Data: Microbiology 04/12/17 11:49 Legionella Urinary Antigen - Final Urine Negative Legionella Streptococcus pneumoniae Ag Screen - Final Negative S. pneumo Antigen Diagnostic Imaging: Reviewed CT chest, there is moderate R-sided pleural effusion, dependent/ layering Assess/Plan/Problems-Billing Assessment: Mr. Camargo is a 76yo M with PMH CAD, DM2, here w/ pneumonia, REY, sarcoidosis, resulting in hypercapneic respiratory failure. - Patient Problems (1) Acute hypercapnic respiratory failure Current Visit: Yes Status: Acute Priority: High Code(s): J96.02 - ACUTE RESPIRATORY FAILURE WITH HYPERCAPNIA SNOMED Code(s): 784584510 Comment: - Respiratory status improving, safe to move to medical floor from ICU - Hypercapnea due to pneumonia, REY, and obesity hypoventilation syndrome. - Responding well to BiPAP, will go home w/ Trilogy device (2) Sarcoidosis Current Visit: Yes Status: Chronic Priority: Medium Code(s): D86.9 - SARCOIDOSIS, UNSPECIFIED SNOMED Code(s): 54598944 Comment: - Switched to PO prednisone - Discussed bronchoscopy w/ Dr. Deng, this is deferred at this time. (3) Pleural effusion associated with pulmonary infection Current Visit: Yes Status: Acute Priority: Medium Code(s): J18.9 - PNEUMONIA, UNSPECIFIED ORGANISM; J91.8 - PLEURAL EFFUSION IN OTHER CONDITIONS CLASSIFIED ELSEWHERE SNOMED Code(s): 07499216 Comment: -Discussed potential thoracentesis w/ Dr. Deng, she felt this was transudate due to volume overload -Will need outpatient pulmonology f/u (4) Type 2 diabetes mellitus Current Visit: Yes Status: Acute Priority: Medium Comment: - Sugars not controlled due to IV steroids, switched to PO steroids, will taper. - Titrated up Lantus and added carb-counting to corrective Lispro SS. (5) Diabetic foot ulcer Current Visit: Yes Status: Chronic Priority: High Code(s): E11.621 - TYPE 2 DIABETES MELLITUS WITH FOOT ULCER; L97.509 - NON-PRESSURE CHRONIC ULCER OTH PRT UNSP FOOT W UNSP SEVERITY SNOMED Code(s): 966080679 Comment: - Present on admission. - Continue turn/position for sacral decub - Surgery input appreciated re sacrum and L toes. (6) DNR (do not resuscitate) Current Visit: Yes Status: Chronic Priority: Low Comment: code status is appropriate. (7) HTN (hypertension) Current Visit: Yes Status: Acute Code(s): I10 - ESSENTIAL (PRIMARY) HYPERTENSION SNOMED Code(s): 86376510 Comment: - on baseline PO meds (Clonidine and Coreg). - BP remains very high, started on amlodipine (8) DVT prophylaxis Current Visit: Yes Status: Acute Code(s): FUD3666 - SNOMED Code(s): 864098102 Comment: - SQ heparin. Status and Disposition: ICU for management of respiratory failure and pneumonia requiring >48h. Will transfer out of ICU .
[2017-04-16] MEDS ORDERED: Influenza VAC *QUAD* 2017-18* 0.5 ML SYRINGE IM ONE (09:00)
[2017-04-16] MEDS ORDERED: Insulin GLARGINE(*) 1 UNITS UNIT SUBCUT SCH (09:00)
[2017-04-16] MEDS: Insulin LISPRO* 1 UNITS UNIT SUBCUT SCH ×7 (09:13→20:29)
[2017-04-16] MEDS ORDERED: Insulin GLARGINE(*) 1 UNITS UNIT SUBCUT ONE (09:20)
[2017-04-16] MEDS: amLODIPine TAB* 5 MG PO SCH ×2 (10:07→20:29)
[2017-04-16] MEDS: Finasteride TAB* 5 MG PO SCH (20:29)
[2017-04-17] MEDS: Levothyroxine TAB* 175 MCG TAB PO SCH (05:24)
[2017-04-17] MEDS: Heparin VIAL(*) 5000 UNITS/ML VIAL (FIVE THOUSAND) SUBCUT SCH ×3 (05:24→20:15)
[2017-04-17 05:37] LABS: Albumin 2.9 g/dL (3.2-5.2); BUN/Creatinine Ratio 35.3 (8-20); Calcium 8.6 mg/dL (8.6-10.3); EGFR African American 56.1 (>60); EGFR Non-African American 43.6 (>60); Globulin 2.5 g/dL (2-4); Total Bilirubin 0.6 mg/dL (0.2-1.0); Total Protein 5.4 g/dL (6.4-8.9)
[2017-04-17 06:26] LABS: Potassium 5.1 mmol/L (3.5-5.0)
[2017-04-17] MEDS: Albuterol/Ipratropium NEB.SOL* Albuterol 2.5 MG/Ipratropium 0.5 MG 3 ML INH SCH ×3 (09:04→20:51)
[2017-04-17] MEDS ORDERED: Metolazone TAB* 5 MG PO ONE (09:38)
--- NOTE | 2017-04-17 09:41 | PN ---
Subjective Date of Service: 04/17/17 Interval History: HOSPITALIST PROGRESS NOTE Patient seen and examined at bedside. He feels well today, dyspnea is much improved. Family History: Unchanged from Admission Social History: Unchanged from Admission Past Medical History: Unchanged from Admission Objective Active Medications: Acetaminophen (Tylenol Tab*) 650 mg PO Q6H PRN PRN Reason: pain/fever Albuterol/Ipratropium (Duoneb (Albuterol 2.5 Mg/Ipratropium 0.5 Mg)) 1 neb INH TID [facility] Last Admin: 04/17/17 09:04 Dose: 1 neb Amiodarone HCl (Cordarone Tab*) 100 mg PO Q48H [facility] Last Admin: 04/16/17 08:40 Dose: 100 mg Amlodipine Besylate (Norvasc Tab*) 5 mg PO BID [facility] Last Admin: 04/16/17 20:29 Dose: 5 mg Aspirin (Aspirin Ec Low Dose*) 81 mg PO DAILY [facility] Last Admin: 04/16/17 08:40 Dose: 81 mg Carvedilol (Coreg Tab*) 25 mg PO BID [facility] Last Admin: 04/16/17 20:28 Dose: 25 mg Clonidine HCl (Catapres Tab*) 0.2 mg PO TID [facility] Last Admin: 04/16/17 20:29 Dose: 0.2 mg Collagenase (Santyl 250 Mg/Gm Oint*) 1 applic TOPICAL DAILY [facility] Last Admin: 04/16/17 08:44 Dose: 1 applic Dextrose (D50w Syringe 50 Ml*) 12.5 gm IV PUSH .FOR FS < 60 - SS PRN PRN Reason: FS < 60 Last Admin: 04/12/17 17:01 Dose: 12.5 gm Docusate Sodium (Colace Cap*) 200 mg PO DAILY [facility] Last Admin: 04/16/17 08:40 Dose: 200 mg Finasteride (Proscar Tab*) 5 mg PO BEDTIME [facility] Last Admin: 04/16/17 20:29 Dose: 5 mg Heparin Sodium (Porcine) (Heparin Vial(*)) 5,000 units SUBCUT Q8HR [facility] Last Admin: 04/17/17 05:24 Dose: 5,000 units Hydralazine HCl (Apresoline Iv*) 10 mg IV SLOW PU Q6H PRN PRN Reason: SBP>180 Last Admin: 04/12/17 16:00 Dose: 10 mg Levofloxacin/Dextrose (Levaquin 750 Mg Ivpremix(*)) 750 mg in 150 mls @ 100 mls /hr IVPB Q48H [facility] Last Admin: 04/16/17 08:21 Dose: 100 mls/hr Cefepime HCl 1 gm/ Sodium (Chloride) 50 mls @ 100 mls/hr IVPB Q12H [facility] Last Admin: 04/16/17 20:28 Dose: 100 mls/hr Insulin Glargine (Lantus(*)) 50 units SUBCUT Q24HR [facility] Insulin Human Lispro (Humalog*) 0 units SUBCUT ACHS [facility] PRN Reason: Protocol Last Admin: 04/16/17 20:29 Dose: 9 units Insulin Human Lispro (Humalog*) 0 units SUBCUT AC [facility] PRN Reason: Protocol Last Admin: 04/16/17 18:55 Dose: 5 unit Lactobacillus Rhamnosus (Culturelle*) 1 cap PO BID [facility] Last Admin: 04/16/17 20:28 Dose: 1 cap Levothyroxine Sodium (Synthroid Tab*) 175 mcg PO MOTUWETHFRSA@0600 [facility] Last Admin: 04/17/17 05:24 Dose: 175 mcg Metolazone (Zaroxolyn Tab*) 5 mg PO ONCE ONE Stop: 04/17/17 09:39 Nystatin (Nystatin Cream*) 1 applic TOPICAL BID [facility] Last Admin: 04/16/17 20:30 Dose: 1 applic Polyvinyl Alcohol (Polyvinyl Alcohol 1.4% Opth*) 2 drop BOTH EYES BID [facility] Last Admin: 04/16/17 20:30 Dose: 2 drop Prednisone (Deltasone Tab*) 30 mg PO DAILY [facility] Last Admin: 04/16/17 08:47 Dose: 30 mg Prochlorperazine Edisylate (Compazine Inj*) 5 mg IV Q6H PRN PRN Reason: NAUSEA/VOMITING Vital Signs 04/16/17 04/17/17 04/17/17 23:36 03:44 09:06 Temperature 98.8 F 98.6 F Pulse Rate 67 63 55 Respiratory 20 18 18 Rate Blood Pressure 148/61 157/67 (mmHg) O2 Sat by Pulse 95 95 95 Oximetry Oxygen Devices in Use Now: Nasal Cannula Appearance: Elderly obese male sitting up in bed in [facility]. Eyes: No Scleral Icterus Ears/Nose/Mouth/Throat: Mucous Membranes Moist Neck: Trachea Midline Respiratory: Symmetrical Chest Expansion and Respiratory Effort, - - BS+ bilaterally with bibasilar rales Cardiovascular: RRR - Normal S1 and S2 Abdominal: NL Sounds; No Tenderness; No Distention - Obese Extremities: - - Bilateral upper and lower extremities edema. s/p right BKA Neurological: Alert and Oriented x 3, NL Muscle Strength and Tone Lines/Tubes/Other Access: Clean, Dry and Intact Peripheral IV Nutrition: Taking PO's Result Diagrams: 04/16/17 05:05 04/17/17 05:01 Assess/Plan/Problems-Billing Assessment: Mr. Camargo is a 76yo M with PMH CAD, DM2, here w/ pneumonia, REY, sarcoidosis, resulting in hypercapneic respiratory failure. - Patient Problems (1) Acute hypercapnic respiratory failure Comment: - Respiratory status continues to improve. - Hypercapnea due to pneumonia, REY, and obesity hypoventilation syndrome. - Responding well to BiPAP overnight, needs Trilogy device at SNF. (2) Fluid overload Comment: - Secondary to IV fluids and meds. - Will diurese with Metolazone. (3) Healthcare associated bacterial pneumonia Comment: - Legionella and pneumococcal Ag are negative. - Blood cultures showed no growth. - Continue Cefepime and Levofloxacin #5/7. (4) UTI (urinary tract infection) Comment: - Present on admission, not [place] catheter related. - UA is abnormal and culture is growing Proteus mirabilis - continue Cefepime #5 /7. (5) Diabetic foot ulcer Comment: - Present on admission. - Continue turn/position for sacral decub - Surgery input appreciated re sacrum and L toes. (6) Stage II pressure ulcer of sacral region Comment: - Present on admission. - Continue care as per Wound clinic recommendation. (7) Type 2 diabetes mellitus Comment: - Better controlled. - Continue Lantus and Lispro SS. (8) CKD (chronic kidney disease) stage 3, GFR 30-59 ml/min Comment: - Renal function stable. (9) HTN (hypertension) Comment: - Controlled. - Continue Clonidine, Coreg, and amlodipine (10) Sarcoidosis Comment: - Switched to PO prednisone - Discussed bronchoscopy w/ Dr. Deng, this is deferred at this time. (11) DVT prophylaxis Comment: - SQ heparin. (12) DNR (do not resuscitate) Status and Disposition: Inpatient for management of respiratory failure and pneumonia requiring >48h.
[2017-04-17] MEDS: Insulin LISPRO* 1 UNITS UNIT SUBCUT SCH ×7 (10:08→20:16)
[2017-04-17] MEDS: amLODIPine TAB* 5 MG PO SCH ×2 (10:10→20:15)
[2017-04-17] MEDS: Carvedilol TAB* 25 MG PO SCH ×3 (10:11→20:15)
[2017-04-17] MEDS: Aspirin EC Low Dose* 81 MG TAB.EC PO SCH (10:11)
[2017-04-17] MEDS: cloNIDine TAB* 0.1 MG PO SCH ×3 (10:11→20:15)
[2017-04-17] MEDS: Docusate CAP* 100 MG PO SCH (10:11)
[2017-04-17] MEDS: Insulin GLARGINE(*) 1 UNITS UNIT SUBCUT SCH (10:12)
[2017-04-17] MEDS: predniSONE TAB* 10 MG PO SCH (10:12)
[2017-04-17] MEDS: Cefepime(*) 1 GM in NS 0.9% 50 ML* 50 ML IVPB SCH ×2 (10:23→20:15)
[2017-04-17] MEDS: Artificial Tears* 15 ML BTL BOTH EYES SCH ×2 (10:23→20:15)
[2017-04-17] MEDS: Collagenase 250 MG/GM OINT* 30 GM TOPICAL SCH (10:24)
[2017-04-17] MEDS: Lactobacillus Acidophilu (GG)* 1 CAP CAP PO SCH ×2 (10:24→20:15)
[2017-04-17] MEDS: Nystatin CREAM* 15 GM TUBE TOPICAL SCH ×2 (10:43→20:17)
--- NOTE | 2017-04-17 17:44 | PN ---
Progress Note - Progress Note Date of Service: 04/17/17 - pulm f/u note Note: Pt seen and examined at bedside. Pt reports improvement in breathing. Cough is productive of phleghm, improved as per pt Active Medications Generic Name Dose Route Start Last Admin Trade Name Freq PRN Reason Stop Dose Admin Acetaminophen 650 mg 04/14/17 08:21 Tylenol Tab* PO Q6H PRN pain/fever Albuterol/Ipratropium 1 neb 04/12/17 14:00 04/17/17 14:16 Duoneb (Albuterol 2.5 Mg/Ipratropium 0.5 Mg) INH 1 neb TID ARBEN Administration Amiodarone HCl 100 mg 04/14/17 09:00 04/16/17 08:40 Cordarone Tab* PO 100 mg Q48H [facility]EN Administration Amlodipine Besylate 5 mg 04/16/17 09:00 04/17/17 10:10 Norvasc Tab* PO 5 mg BID ARBEN Administration Aspirin 81 mg 04/14/17 09:00 04/17/17 10:11 Aspirin Ec Low Dose* PO 81 mg DAILY [facility]BEN Administration Carvedilol 25 mg 04/14/17 09:00 04/17/17 10:35 Coreg Tab* PO 25 mg BID ARBEN Administration Clonidine HCl 0.2 mg 04/14/17 09:00 04/17/17 13:21 Catapres Tab* PO 0.2 mg TID ARBEN Administration Collagenase 1 applic 04/13/17 09:00 04/17/17 10:24 Santyl 250 Mg/Gm Oint* TOPICAL 1 applic DAILY [facility]BEN Administration Dextrose 12.5 gm 04/12/17 10:55 04/12/17 17:01 D50w Syringe 50 Ml* IV PUSH 12.5 gm .FOR FS < 60 - SS PRN Administration FS < 60 Docusate Sodium 200 mg 04/14/17 09:00 04/17/17 10:11 Colace Cap* PO 200 mg DAILY [facility]BEN Administration Finasteride 5 mg 04/14/17 21:00 04/16/17 20:29 Proscar Tab* PO 5 mg BEDTIME ARBEN Administration Heparin Sodium (Porcine) 5,000 units 04/12/17 14:00 04/17/17 13:20 Heparin Vial(*) SUBCUT 5,000 units Q8HR [facility]EN Administration Hydralazine HCl 10 mg 04/12/17 15:33 04/12/17 16:00 Apresoline Iv* IV SLOW PU 10 mg Q6H PRN Administration SBP>180 Levofloxacin/Dextrose 750 mg in 150 mls @ 100 mls/hr 04/14/17 08:00 04/16/17 08:21 Levaquin 750 Mg Ivpremix(*) IVPB 100 mls/hr Q48H [facility]EN Administration Cefepime HCl 1 gm/ Sodium 50 mls @ 100 mls/hr 04/12/17 20:00 04/17/17 10:23 Chloride IVPB 100 mls/hr Q12H [facility]EN Administration Insulin Glargine 50 units 04/17/17 09:00 04/17/17 10:12 Lantus(*) SUBCUT 50 unit Q24HR [facility]EN Administration Insulin Human Lispro 0 units 04/13/17 21:00 04/17/17 13:17 Humalog* SUBCUT 3 units ACHS [facility]EN Administration Protocol Insulin Human Lispro 0 units 04/15/17 11:30 04/17/17 13:19 Humalog* SUBCUT 10 unit AC [facility]BEN Administration Protocol Lactobacillus Rhamnosus 1 cap 04/14/17 09:00 04/17/17 10:24 Culturelle* PO 1 cap BID [facility]EN Administration Levothyroxine Sodium 175 mcg 04/15/17 06:00 04/17/17 05:24 Synthroid Tab* PO 175 mcg MOTUWETHFRSA@0600 [facility] Administration Nystatin 1 applic 04/12/17 21:00 04/17/17 10:43 Nystatin Cream* TOPICAL 1 applic BID [facility]EN Administration Polyvinyl Alcohol 2 drop 04/12/17 21:00 04/17/17 10:23 Polyvinyl Alcohol 1.4% Opth* BOTH EYES 2 drop BID [facility]EN Administration Prednisone 30 mg 04/16/17 09:00 04/17/17 10:12 Deltasone Tab* PO 30 mg DAILY [facility] Administration Prochlorperazine Edisylate 5 mg 04/12/17 10:54 Compazine Inj* IV Q6H PRN NAUSEA/VOMITING Vital Signs Temp Pulse Resp BP Pulse Ox 98.6 F 68 80 143/67 94 04/17/17 03:44 04/17/17 14:10 04/17/17 14:45 04/17/17 07:46 04/17/17 14:10 O/E: Pt in NAD HEENT: PERRLA, no JVD Lungs: diminished air entry at bases, no wheeze CVS: s1, s2 + Abd: Obese, BS+ Ext: Normal ROM Neuro: No focal defecits Laboratory Results - last 24 hr 04/16/17 04/16/17 04/17/17 18:29 20:08 05:01 Sodium 133 Potassium 5.1 H Chloride 102 Carbon Dioxide 29 Anion Gap 2 BUN 55 H Creatinine 1.56 H Est GFR ( Amer) 56.1 Est GFR (Non-Af Amer) 43.6 BUN/Creatinine Ratio 35.3 H Glucose 191 H POC Glucose (mg/dL) 284 H 265 H Calcium 8.6 Total Bilirubin 0.60 AST 16 ALT 14 Alkaline Phosphatase 52 Total Protein 5.4 L Albumin 2.9 L Globulin 2.5 Albumin/Globulin Ratio 1.2 04/17/17 04/17/17 04/17/17 08:08 11:52 17:02 Sodium Potassium Chloride Carbon Dioxide Anion Gap BUN Creatinine Est GFR ( Amer) Est GFR (Non-Af Amer) BUN/Creatinine Ratio Glucose POC Glucose (mg/dL) 172 H 163 H 171 H Calcium Total Bilirubin AST ALT Alkaline Phosphatase Total Protein Albumin Globulin Albumin/Globulin Ratio I/R: Morbidly obese male, former smoker with h/o REY, possibel OHS, ? sarcoidosis, pt unaware a/w hypoxic and hypercapnic resp failure sec to PNA, fluid overload Pt improved signficantly Was noted to have b/l effusions likely sec to fluid overload His resp status and O2 requirements have been improving and thoracentesis was not indicated c/w abx for PNA c/w sterroid taper, no evidene of sarcoidosis on CT chest, pt doesnot remember being dx with sarcoidosis Bronchoscopy not needed- no parenchymal opacities, no lymphadenopathy Pt tolerating BiPAP well Will need Trilogy upon d/c Rest of mx as per primary team
[2017-04-17] MEDS: Finasteride TAB* 5 MG PO SCH (20:15)
[2017-04-18] MEDS: Heparin VIAL(*) 5000 UNITS/ML VIAL (FIVE THOUSAND) SUBCUT SCH ×3 (05:11→20:24)
[2017-04-18] MEDS: Levothyroxine TAB* 175 MCG TAB PO SCH (05:11)
[2017-04-18] MEDS: Cefepime(*) 1 GM in NS 0.9% 50 ML* 50 ML IVPB SCH ×2 (08:21→20:22)
[2017-04-18] MEDS: Levofloxacin 750 MG IVPREMIX(* 750 MG/150 ML BAG IVPB SCH (08:21)
[2017-04-18] MEDS: Aspirin EC Low Dose* 81 MG TAB.EC PO SCH (08:25)
[2017-04-18] MEDS: Insulin GLARGINE(*) 1 UNITS UNIT SUBCUT SCH (08:25)
[2017-04-18] MEDS: predniSONE TAB* 10 MG PO SCH (08:25)
[2017-04-18] MEDS: cloNIDine TAB* 0.1 MG PO SCH ×3 (08:26→20:23)
[2017-04-18] MEDS: amLODIPine TAB* 5 MG PO SCH ×2 (08:26→20:23)
[2017-04-18] MEDS: Docusate CAP* 100 MG PO SCH (08:26)
[2017-04-18] MEDS: Lactobacillus Acidophilu (GG)* 1 CAP CAP PO SCH ×2 (08:26→20:23)
[2017-04-18] MEDS: Carvedilol TAB* 25 MG PO SCH ×2 (08:26→20:23)
[2017-04-18] MEDS: Amiodarone TAB* 200 MG PO SCH (08:26)
[2017-04-18] MEDS: Albuterol/Ipratropium NEB.SOL* Albuterol 2.5 MG/Ipratropium 0.5 MG 3 ML INH SCH ×3 (08:36→20:04)
[2017-04-18] MEDS: Artificial Tears* 15 ML BTL BOTH EYES SCH ×2 (08:39→20:23)
[2017-04-18] MEDS: Nystatin CREAM* 15 GM TUBE TOPICAL SCH ×2 (08:40→20:23)
[2017-04-18] MEDS: Collagenase 250 MG/GM OINT* 30 GM TOPICAL SCH (08:40)
[2017-04-18] MEDS: Insulin LISPRO* 1 UNITS UNIT SUBCUT SCH ×7 (08:47→20:22)
[2017-04-18] MEDS ORDERED: Metolazone TAB* 5 MG PO ONE (10:39)
--- NOTE | 2017-04-18 14:30 | PN ---
Subjective Date of Service: 04/18/17 Interval History: HOSPITALIST PROGRESS NOTE Patient seen and examined at bedside. He's in good spirits today, feels much improved. Family History: Unchanged from Admission Social History: Unchanged from Admission Past Medical History: Unchanged from Admission Objective Active Medications: Acetaminophen (Tylenol Tab*) 650 mg PO Q6H PRN PRN Reason: pain/fever Albuterol/Ipratropium (Duoneb (Albuterol 2.5 Mg/Ipratropium 0.5 Mg)) 1 neb INH TID [facility] Last Admin: 04/18/17 14:24 Dose: 1 neb Amiodarone HCl (Cordarone Tab*) 100 mg PO Q48H [facility] Last Admin: 04/18/17 08:26 Dose: 100 mg Amlodipine Besylate (Norvasc Tab*) 5 mg PO BID [facility] Last Admin: 04/18/17 08:26 Dose: 5 mg Aspirin (Aspirin Ec Low Dose*) 81 mg PO DAILY [facility] Last Admin: 04/18/17 08:25 Dose: 81 mg Carvedilol (Coreg Tab*) 25 mg PO BID [facility] Last Admin: 04/18/17 08:26 Dose: 25 mg Clonidine HCl (Catapres Tab*) 0.2 mg PO TID [facility] Last Admin: 04/18/17 13:45 Dose: 0.2 mg Collagenase (Santyl 250 Mg/Gm Oint*) 1 applic TOPICAL DAILY [facility] Last Admin: 04/18/17 08:40 Dose: 1 applic Dextrose (D50w Syringe 50 Ml*) 12.5 gm IV PUSH .FOR FS < 60 - SS PRN PRN Reason: FS < 60 Last Admin: 04/12/17 17:01 Dose: 12.5 gm Docusate Sodium (Colace Cap*) 200 mg PO DAILY [facility] Last Admin: 04/18/17 08:26 Dose: 200 mg Finasteride (Proscar Tab*) 5 mg PO BEDTIME [facility] Last Admin: 04/17/17 20:15 Dose: 5 mg Heparin Sodium (Porcine) (Heparin Vial(*)) 5,000 units SUBCUT Q8HR [facility] Last Admin: 04/18/17 13:45 Dose: 5,000 units Hydralazine HCl (Apresoline Iv*) 10 mg IV SLOW PU Q6H PRN PRN Reason: SBP>180 Last Admin: 04/12/17 16:00 Dose: 10 mg Levofloxacin/Dextrose (Levaquin 750 Mg Ivpremix(*)) 750 mg in 150 mls @ 100 mls /hr IVPB Q48H [facility] Last Admin: 04/18/17 08:21 Dose: 100 mls/hr Cefepime HCl 1 gm/ Sodium (Chloride) 50 mls @ 100 mls/hr IVPB Q12H [facility] Last Admin: 04/18/17 08:21 Dose: 100 mls/hr Insulin Glargine (Lantus(*)) 50 units SUBCUT Q24HR [facility] Last Admin: 04/18/17 08:25 Dose: 50 unit Insulin Human Lispro (Humalog*) 0 units SUBCUT ACHS [facility] PRN Reason: Protocol Last Admin: 04/18/17 12:52 Dose: 2 units Insulin Human Lispro (Humalog*) 0 units SUBCUT AC [facility] PRN Reason: Protocol Last Admin: 04/18/17 12:53 Dose: 2 unit Lactobacillus Rhamnosus (Culturelle*) 1 cap PO BID [facility] Last Admin: 04/18/17 08:26 Dose: 1 cap Levothyroxine Sodium (Synthroid Tab*) 175 mcg PO MOTUWETHFRSA@0600 [facility] Last Admin: 04/18/17 05:11 Dose: 175 mcg Nystatin (Nystatin Cream*) 1 applic TOPICAL BID [facility] Last Admin: 04/18/17 08:40 Dose: 1 applic Polyvinyl Alcohol (Polyvinyl Alcohol 1.4% Opth*) 2 drop BOTH EYES BID [facility] Last Admin: 04/18/17 08:39 Dose: 2 drop Prednisone (Deltasone Tab*) 30 mg PO DAILY [facility] Last Admin: 04/18/17 08:25 Dose: 30 mg Prochlorperazine Edisylate (Compazine Inj*) 5 mg IV Q6H PRN PRN Reason: NAUSEA/VOMITING Vital Signs 04/18/17 04/18/17 04/18/17 04:11 07:19 07:25 Temperature 97.7 F 97.3 F Pulse Rate 60 59 Respiratory 20 20 Rate Blood Pressure 113/40 150/72 (mmHg) O2 Sat by Pulse 94 99 5 Oximetry Oxygen Devices in Use Now: Nasal Cannula Appearance: Pleasant elderly gentleman sitting up in bed in NAD. Eyes: No Scleral Icterus Ears/Nose/Mouth/Throat: Mucous Membranes Moist Neck: Trachea Midline Respiratory: Symmetrical Chest Expansion and Respiratory Effort, - - BS+ bilaterally decreased in bases Cardiovascular: RRR - Normal S1 and S2 Abdominal: NL Sounds; No Tenderness; No Distention - obese Extremities: - - Moderate bilateral UE and LE edema, LLE JUSTINA wrapped, R BKA Neurological: Alert and Oriented x 3, NL Muscle Strength and Tone Lines/Tubes/Other Access: Clean, Dry and Intact Peripheral IV Nutrition: Taking PO's Result Diagrams: 04/16/17 05:05 04/17/17 05:01 Diagnostic Imaging: Reviewed CT chest, there is moderate R-sided pleural effusion, dependent/ layering Assess/Plan/Problems-Billing Assessment: Mr. Camargo is a 76yo M with PMH CAD, DM2, here w/ pneumonia, REY, sarcoidosis, resulting in hypercapneic respiratory failure. - Patient Problems (1) Acute hypercapnic respiratory failure Comment: - Respiratory status continues to improve. - Hypercapnea due to pneumonia, REY, and obesity hypoventilation syndrome. - Responding well to BiPAP overnight, needs Trilogy device at SNF. - Patient does not have a h/o COPD. (2) Fluid overload Comment: - Secondary to IV fluids and meds. - Continue diuresis with Metolazone. (3) Healthcare associated bacterial pneumonia Comment: - Legionella and pneumococcal Ag are negative. - Blood cultures showed no growth. - Continue Cefepime and Levofloxacin #6/7. - Leukocytosis trending up, likely secondary to steroids, as clinically the patient shows signs of improvement. (4) UTI (urinary tract infection) Comment: - Present on admission, not [place] catheter related. - UA is abnormal and culture is growing Proteus mirabilis - continue Cefepime #6 /7. (5) Diabetic foot ulcer Comment: - Present on admission. - Continue turn/position for sacral decub - Surgery input appreciated re sacrum and L toes. (6) Stage II pressure ulcer of sacral region Comment: - Present on admission. - Continue care as per Wound clinic recommendation. (7) Type 2 diabetes mellitus Comment: - Better controlled. - Continue Lantus and Lispro SS. (8) CKD (chronic kidney disease) stage 3, GFR 30-59 ml/min Comment: - Renal function stable. (9) HTN (hypertension) Comment: - Controlled. - Continue Clonidine, Coreg, and amlodipine (10) Sarcoidosis Comment: - Switched to PO prednisone - Discussed bronchoscopy w/ Dr. Deng, this is deferred at this time. (11) DVT prophylaxis Comment: - SQ heparin. (12) DNR (do not resuscitate) Status and Disposition: Inpatient for management of respiratory failure and pneumonia requiring >48h. Anticipate d/c back to SNF when Trilogy available.
[2017-04-18] MEDS: Finasteride TAB* 5 MG PO SCH (20:23)
[2017-04-19] MEDS: Levothyroxine TAB* 175 MCG TAB PO SCH (05:08)
[2017-04-19] MEDS: Heparin VIAL(*) 5000 UNITS/ML VIAL (FIVE THOUSAND) SUBCUT SCH ×3 (05:08→21:30)
[2017-04-19 05:26] LABS: BUN/Creatinine Ratio 41.9 (8-20); Calcium 8.6 mg/dL (8.6-10.3); EGFR African American 65.7 (>60); EGFR Non-African American 51.1 (>60); Potassium 4.5 mmol/L (3.5-5.0)
[2017-04-19 05:57] LABS: Hematocrit 33 % (42-52); Hemoglobin 10.6 g/dl (14.0-18.0); Mean Corpuscular HGB Conc 32 g/dl (31-36); Mean Corpuscular Hemoglobin 27 pg (27-31); Mean Corpuscular Volume 85 fL (80-94); Mean Platelet Volume 11 um3 (7.4-10.4); Red Blood Count 3.89 10^6/ul (4.0-5.4); Red Cell Distribution Width 15 % (10.5-15); White Blood Count 18.3 10^3/ul (3.5-10.8)
[2017-04-19 05:58] LABS: Add Diff/Slide Review? Slide Review Added; Comments Flag Yes
[2017-04-19] MEDS: Aspirin EC Low Dose* 81 MG TAB.EC PO SCH (07:50)
[2017-04-19] MEDS: Artificial Tears* 15 ML BTL BOTH EYES SCH ×2 (07:50→21:29)
[2017-04-19] MEDS: Carvedilol TAB* 25 MG PO SCH ×2 (07:50→21:35)
[2017-04-19] MEDS: Lactobacillus Acidophilu (GG)* 1 CAP CAP PO SCH ×2 (07:50→21:29)
[2017-04-19] MEDS: cloNIDine TAB* 0.1 MG PO SCH ×3 (07:51→21:29)
[2017-04-19] MEDS: predniSONE TAB* 10 MG PO SCH (07:51)
[2017-04-19] MEDS: Collagenase 250 MG/GM OINT* 30 GM TOPICAL SCH (07:51)
[2017-04-19] MEDS: amLODIPine TAB* 5 MG PO SCH ×2 (07:51→21:29)
[2017-04-19] MEDS: Docusate CAP* 100 MG PO SCH (07:51)
[2017-04-19] MEDS: Insulin LISPRO* 1 UNITS UNIT SUBCUT SCH ×7 (07:55→21:30)
[2017-04-19] MEDS: Cefepime(*) 1 GM in NS 0.9% 50 ML* 50 ML IVPB SCH (07:55)
[2017-04-19] MEDS: Nystatin CREAM* 15 GM TUBE TOPICAL SCH ×2 (07:55→21:21)
[2017-04-19] MEDS: Insulin GLARGINE(*) 1 UNITS UNIT SUBCUT SCH (09:00)
[2017-04-19] MEDS: Albuterol/Ipratropium NEB.SOL* Albuterol 2.5 MG/Ipratropium 0.5 MG 3 ML INH SCH ×3 (09:58→20:00)
--- NOTE | 2017-04-19 15:22 | PN ---
Subjective Date of Service: 04/19/17 Interval History: Pt feels well. SOB at baseline Has had chronic let arm edema x 1 year constipated Family History: Unchanged from Admission Social History: Unchanged from Admission Past Medical History: Unchanged from Admission Objective Active Medications: Acetaminophen (Tylenol Tab*) 650 mg PO Q6H PRN PRN Reason: pain/fever Albuterol/Ipratropium (Duoneb (Albuterol 2.5 Mg/Ipratropium 0.5 Mg)) 1 neb INH TID [facility] Last Admin: 04/19/17 14:33 Dose: 1 neb Amiodarone HCl (Cordarone Tab*) 100 mg PO Q48H [facility] Last Admin: 04/18/17 08:26 Dose: 100 mg Amlodipine Besylate (Norvasc Tab*) 5 mg PO BID [facility] Last Admin: 04/19/17 07:51 Dose: 5 mg Aspirin (Aspirin Ec Low Dose*) 81 mg PO DAILY [facility] Last Admin: 04/19/17 07:50 Dose: 81 mg Carvedilol (Coreg Tab*) 25 mg PO BID [facility] Last Admin: 04/19/17 07:50 Dose: 25 mg Clonidine HCl (Catapres Tab*) 0.2 mg PO TID [facility] Last Admin: 04/19/17 13:12 Dose: 0.2 mg Collagenase (Santyl 250 Mg/Gm Oint*) 1 applic TOPICAL DAILY [facility] Last Admin: 04/19/17 07:51 Dose: 1 applic Dextrose (D50w Syringe 50 Ml*) 12.5 gm IV PUSH .FOR FS < 60 - SS PRN PRN Reason: FS < 60 Last Admin: 04/12/17 17:01 Dose: 12.5 gm Docusate Sodium (Colace Cap*) 200 mg PO DAILY [facility] Last Admin: 04/19/17 07:51 Dose: 200 mg Finasteride (Proscar Tab*) 5 mg PO BEDTIME [facility] Last Admin: 04/18/17 20:23 Dose: 5 mg Heparin Sodium (Porcine) (Heparin Vial(*)) 5,000 units SUBCUT Q8HR [facility] Last Admin: 04/19/17 13:12 Dose: 5,000 units Hydralazine HCl (Apresoline Iv*) 10 mg IV SLOW PU Q6H PRN PRN Reason: SBP>180 Last Admin: 04/12/17 16:00 Dose: 10 mg Influenza Virus Vaccine (Fluarix *Quad* 2017-*) 0.5 ml IM .ONCE ONE Stop: 04/20/17 08:01 Insulin Glargine (Lantus(*)) 50 units SUBCUT Q24HR [facility] Last Admin: 04/19/17 09:00 Dose: 50 unit Insulin Human Lispro (Humalog*) 0 units SUBCUT ACHS [facility] PRN Reason: Protocol Last Admin: 04/19/17 12:19 Dose: Not Given Insulin Human Lispro (Humalog*) 0 units SUBCUT AC [facility] PRN Reason: Protocol Last Admin: 04/19/17 13:11 Dose: 4 unit Lactobacillus Rhamnosus (Culturelle*) 1 cap PO BID [facility] Last Admin: 04/19/17 07:50 Dose: 1 cap Levothyroxine Sodium (Synthroid Tab*) 175 mcg PO MOTUWETHFRSA@0600 [facility] Last Admin: 04/19/17 05:08 Dose: 175 mcg Magnesium Citrate (Citrate Of Magnesia*) 150 ml PO ONCE ONE Stop: 04/19/17 15:08 Magnesium Hydroxide (Milk Of Magnesia Liq*) 30 ml PO Q6H PRN PRN Reason: CONSTIPATION Nystatin (Nystatin Cream*) 1 applic TOPICAL BID [facility] Last Admin: 04/19/17 07:55 Dose: 1 applic Polyvinyl Alcohol (Polyvinyl Alcohol 1.4% Opth*) 2 drop BOTH EYES BID [facility] Last Admin: 04/19/17 07:50 Dose: 2 drop Prednisone (Deltasone Tab*) 30 mg PO DAILY [facility] Last Admin: 04/19/17 07:51 Dose: 30 mg Prochlorperazine Edisylate (Compazine Inj*) 5 mg IV Q6H PRN PRN Reason: NAUSEA/VOMITING Vital Signs 04/18/17 04/18/17 04/18/17 16:33 20:00 20:08 Temperature Pulse Rate 65 72 Respiratory 16 18 20 Rate Blood Pressure 140/69 (mmHg) O2 Sat by Pulse 93 96 95 Oximetry 04/18/17 04/19/17 04/19/17 20:09 00:33 03:16 Temperature 97.8 F 97.9 F 97.5 F Pulse Rate 69 64 60 Respiratory 20 16 16 Rate Blood Pressure 134/25 133/57 136/52 (mmHg) O2 Sat by Pulse 96 94 94 Oximetry 04/19/17 04/19/17 04/19/17 07:16 08:00 09:48 Temperature 97.6 F Pulse Rate 63 76 Respiratory 20 20 Rate Blood Pressure 156/77 (mmHg) O2 Sat by Pulse 95 94 Oximetry 04/19/17 04/19/17 11:07 12:12 Temperature 97.6 F Pulse Rate 74 Respiratory 20 19 Rate Blood Pressure 149/27 (mmHg) O2 Sat by Pulse 86 96 Oximetry Oxygen Devices in Use Now: Nasal Cannula - at 3L Appearance: yo M in nAD, aAOx3 Eyes: No Scleral Icterus, PERRLA Ears/Nose/Mouth/Throat: NL Teeth, Lips, Gums, Mucous Membranes Moist Neck: NL Appearance and Movements; NL JVP, Trachea Midline Respiratory: Symmetrical Chest Expansion and Respiratory Effort, - - absent breath sounds in left lung at RLL and RML Cardiovascular: NL Sounds; No Murmurs; No JVD, RRR Abdominal: NL Sounds; No Tenderness; No Distention Lymphatic: No Cervical Adenopathy Extremities: No Clubbing, Cyanosis, - - R BKA, left leg wrapped in JUSTINA bandages Skin: No Nodules or Sclerosis, - - left dorsum of foot ulcer at 2-3 cm in diam stage 2-3, toes necrotic. sacrum stage 2 decub at 8-10 cm in diam Neurological: Alert and Oriented x 3, NL Muscle Strength and Tone Result Diagrams: 04/19/17 05:04 04/19/17 05:04 Additional Lab and Data: Lab Results Laboratory Tests 04/15/17 04/15/17 04/15/17 08:06 11:58 17:09 Glucose POC Glucose (mg/dL) 375 H 361 H 233 H 04/15/17 04/16/17 21:19 05:05 Glucose 220 H POC Glucose (mg/dL) 223 H Microbiology and Other Data: Microbiology 04/12/17 11:49 Legionella Urinary Antigen - Final Urine Negative Legionella Streptococcus pneumoniae Ag Screen - Final Negative S. pneumo Antigen Diagnostic Imaging: Reviewed CT chest, there is moderate R-sided pleural effusion, dependent/ layering Assess/Plan/Problems-Billing Assessment: Mr. Camargo is a 76yo M with PMH CAD, DM2, here w/ pneumonia, REY, sarcoidosis, resulting in hypercapneic respiratory failure. - Patient Problems (1) Acute hypercapnic respiratory failure Comment: - Respiratory status continues to improve. - Hypercapnea due to pneumonia, REY, and obesity hypoventilation syndrome. - Responding well to BiPAP overnight, needs Trilogy device at SNF. - Patient does not have a h/o COPD. (2) Fluid overload Comment: - Secondary to IV fluids and meds. - Continue diuresis with Metolazone.will add Bumex x 1 dose today. Pt is allergic to Lasix stated that it "dropped his kidneys" (3) Pleural effusion associated with pulmonary infection Comment: -Discussed potential thoracentesis w/ Dr. Deng, she felt this was transudate due to volume overload -Will need outpatient pulmonology f/u -cont diuresis (4) Healthcare associated bacterial pneumonia Comment: - Legionella and pneumococcal Ag are negative. - Blood cultures showed no growth. - Cefepime and Levofloxacin -finished 7 day course on 04/19/17 - Leukocytosis trending up, likely secondary to steroids, as clinically the patient shows signs of improvement. (5) Stage II pressure ulcer of sacral region Comment: - Present on admission. - Continue care as per Wound clinic recommendation. (6) CKD (chronic kidney disease) stage 3, GFR 30-59 ml/min Comment: - Renal function stable. (7) Diabetic foot ulcer Comment: - Present on admission. - Continue turn/position for sacral decub - Surgery input appreciated re: sacrum and L toes. Will d/w Dr. Alegria in AM, pt has h/o PAD (8) Type 2 diabetes mellitus Comment: - with mild hypoglycemia today, will lower Lantus from 50 to 45 U - Continue Lispro SS. (9) HTN (hypertension) Comment: - Controlled. - Continue Clonidine, Coreg, and amlodipine (10) DVT prophylaxis Current Visit: Yes Status: Acute Comment: - SQ heparin. Status and Disposition: Inpatient for management of respiratory failure and pneumonia requiring >48h. Anticipate d/c back to SNF when Trilogy available.
--- NOTE | 2017-04-19 15:53 | PN ---
Progress Note - Progress Note Date of Service: 04/19/17 - Pulm f/u Note: Pt seen and examined at bedside. Reports feeling much improved. SOB is improved , cough is less frequent. Tolerating BiPAP well Active Medications Generic Name Dose Route Start Last Admin Trade Name Freq PRN Reason Stop Dose Admin Acetaminophen 650 mg 04/14/17 08:21 Tylenol Tab* PO Q6H PRN pain/fever Albuterol/Ipratropium 1 neb 04/12/17 14:00 04/19/17 14:33 Duoneb (Albuterol 2.5 Mg/Ipratropium 0.5 Mg) INH 1 neb TID ARBEN Administration Amiodarone HCl 100 mg 04/14/17 09:00 04/18/17 08:26 Cordarone Tab* PO 100 mg Q48H [facility] Administration Amlodipine Besylate 5 mg 04/16/17 09:00 04/19/17 07:51 Norvasc Tab* PO 5 mg BID [facility] Administration Aspirin 81 mg 04/14/17 09:00 04/19/17 07:50 Aspirin Ec Low Dose* PO 81 mg DAILY [facility] Administration Carvedilol 25 mg 04/14/17 09:00 04/19/17 07:50 Coreg Tab* PO 25 mg BID [facility] Administration Clonidine HCl 0.2 mg 04/14/17 09:00 04/19/17 13:12 Catapres Tab* PO 0.2 mg TID [facility] Administration Collagenase 1 applic 04/13/17 09:00 04/19/17 07:51 Santyl 250 Mg/Gm Oint* TOPICAL 1 applic DAILY [facility] Administration Dextrose 12.5 gm 04/12/17 10:55 04/12/17 17:01 D50w Syringe 50 Ml* IV PUSH 12.5 gm .FOR FS < 60 - SS PRN Administration FS < 60 Docusate Sodium 200 mg 04/14/17 09:00 04/19/17 07:51 Colace Cap* PO 200 mg DAILY [facility] Administration Finasteride 5 mg 04/14/17 21:00 04/18/17 20:23 Proscar Tab* PO 5 mg BEDTIME [facility] Administration Furosemide 40 mg 04/19/17 16:00 Lasix Iv* IV DAILY [facility] Heparin Sodium (Porcine) 5,000 units 04/12/17 14:00 04/19/17 13:12 Heparin Vial(*) SUBCUT 5,000 units Q8HR [facility] Administration Hydralazine HCl 10 mg 04/12/17 15:33 04/12/17 16:00 Apresoline Iv* IV SLOW PU 10 mg Q6H PRN Administration SBP>180 Influenza Virus Vaccine 0.5 ml 04/20/17 08:00 Fluarix *Quad* * IM 04/20/17 08:01 .ONCE ONE Insulin Glargine 50 units 04/17/17 09:00 04/19/17 09:00 Lantus(*) SUBCUT 50 unit Q24HR [facility] Administration Insulin Human Lispro 0 units 04/13/17 21:00 04/19/17 12:19 Humalog* SUBCUT Not Given ACHS [facility] Protocol Insulin Human Lispro 0 units 04/15/17 11:30 04/19/17 13:11 Humalog* SUBCUT 4 unit AC [facility] Administration Protocol Lactobacillus Rhamnosus 1 cap 04/14/17 09:00 04/19/17 07:50 Culturelle* PO 1 cap BID [facility] Administration Levothyroxine Sodium 175 mcg 04/15/17 06:00 04/19/17 05:08 Synthroid Tab* PO 175 mcg MOTUWETHFRSA@0600 [facility] Administration Magnesium Citrate 150 ml 04/19/17 16:00 Citrate Of Magnesia* PO 04/19/17 16:01 ONCE ONE Magnesium Hydroxide 30 ml 04/19/17 15:07 Milk Of Magnesia Liq* PO Q6H PRN CONSTIPATION Nystatin 1 applic 04/12/17 21:00 04/19/17 07:55 Nystatin Cream* TOPICAL 1 applic BID [facility] Administration Polyvinyl Alcohol 2 drop 04/12/17 21:00 04/19/17 07:50 Polyvinyl Alcohol 1.4% Opth* BOTH EYES 2 drop BID [facility] Administration Prednisone 30 mg 04/16/17 09:00 04/19/17 07:51 Deltasone Tab* PO 30 mg DAILY [facility] Administration Prochlorperazine Edisylate 5 mg 04/12/17 10:54 Compazine Inj* IV Q6H PRN NAUSEA/VOMITING Vital Signs Temp Pulse Resp BP Pulse Ox 97.6 F 74 19 149/27 96 04/19/17 11:07 04/19/17 11:07 04/19/17 12:12 04/19/17 11:07 04/19/17 12:12 O/E: Pt in NAD HEENT: PERRLA, no JVD Lungs: diminished air entry at bases, no wheeze CVS: s1, s2 + Abd: Obese, BS+ Ext: Normal ROM Neuro: No focal defecits Laboratory Results - last 24 hr 04/18/17 04/18/17 04/19/17 16:27 19:31 05:04 WBC 18.3 H RBC 3.89 L Hgb 10.6 L Hct 33 L MCV 85 MCH 27 MCHC 32 RDW 15 Plt Count 246 MPV 11 H Neut % (Auto) 82.3 Lymph % (Auto) 4.9 L Glenn % (Auto) 11.9 H Eos % (Auto) 0.3 Baso % (Auto) 0.6 Absolute Neuts (auto) 15.1 H Absolute Lymphs (auto) 0.9 L Absolute Monos (auto) 2.2 H Absolute Eos (auto) 0.1 Absolute Basos (auto) 0.1 Absolute Nucleated RBC 0.01 Nucleated RBC % 0 Sodium Potassium Chloride Carbon Dioxide Anion Gap BUN Creatinine Est GFR ( Amer) Est GFR (Non-Af Amer) BUN/Creatinine Ratio Glucose POC Glucose (mg/dL) 121 H 134 H Calcium 04/19/17 04/19/17 04/19/17 05:04 07:47 11:54 WBC RBC Hgb Hct MCV MCH MCHC RDW Plt Count MPV Neut % (Auto) Lymph % (Auto) Glenn % (Auto) Eos % (Auto) Baso % (Auto) Absolute Neuts (auto) Absolute Lymphs (auto) Absolute Monos (auto) Absolute Eos (auto) Absolute Basos (auto) Absolute Nucleated RBC Nucleated RBC % Sodium 134 Potassium 4.5 Chloride 102 Carbon Dioxide 27 Anion Gap 5 BUN 57 H Creatinine 1.36 H Est GFR ( Amer) 65.7 Est GFR (Non-Af Amer) 51.1 BUN/Creatinine Ratio 41.9 H Glucose 107 H POC Glucose (mg/dL) 99 74 Calcium 8.6 I/R: 76 y o morbidly obese male, former smoker with h/o REY, possibel OHS, ? sarcoidosis, pt unaware a/w hypoxic and hypercapnic resp failure sec to PNA, fluid overload and OHS. Pt with no h/o COPD Pt improved signficantly Was noted to have b/l effusions likely sec to fluid overload, given improvement in resp status and O2 requirements, thoracentesis was not indicated c/w abx for PNA c/w steroid taper, no evidene of sarcoidosis on CT chest, pt doesnot remember being dx with sarcoidosis Bronchoscopy not needed- no parenchymal opacities, no lymphadenopathy Pt tolerating BiPAP well Will need Trilogy upon d/c
[2017-04-19] MEDS ORDERED: Magnesium CITRATE* 300 ML BTL PO ONE (16:00)
[2017-04-19] MEDS ORDERED: Furosemide IV* 10 MG/ML VIAL (40 MG) IV SCH (16:00)
[2017-04-19] MEDS: Magnesium Hydroxide LIQ* 30 ML UDC PO PRN (16:47)
[2017-04-19] MEDS ORDERED: Bumetanide IV* 0.25 MG/ML 4 ML VIAL SLOW PUSH ONE (16:48)
[2017-04-19] MEDS: Finasteride TAB* 5 MG PO SCH (21:29)
[2017-04-20] MEDS: Levothyroxine TAB* 175 MCG TAB PO SCH (06:07)
[2017-04-20] MEDS: Heparin VIAL(*) 5000 UNITS/ML VIAL (FIVE THOUSAND) SUBCUT SCH ×3 (06:07→22:01)
[2017-04-20 06:53] LABS: Comments Flag Yes; Hematocrit 34 % (42-52); Hemoglobin 10.8 g/dl (14.0-18.0); Mean Corpuscular HGB Conc 32 g/dl (31-36); Mean Corpuscular Hemoglobin 28 pg (27-31); Mean Corpuscular Volume 86 fL (80-94); Mean Platelet Volume 11 um3 (7.4-10.4); Red Blood Count 3.91 10^6/ul (4.0-5.4); Red Cell Distribution Width 15 % (10.5-15); White Blood Count 16.9 10^3/ul (3.5-10.8)
[2017-04-20 07:11] LABS: BUN/Creatinine Ratio 39.4 (8-20); Blood Urea Nitrogen 56 mg/dL (6-24); CO2 Carbon Dioxide 29 mmol/L (22-32); Calcium 8.7 mg/dL (8.6-10.3); Chloride 101 mmol/L (101-111); EGFR African American 62.5 (>60); EGFR Non-African American 48.6 (>60); Sodium 136 mmol/L (133-145)
[2017-04-20 07:18] LABS: Anion Gap 6 mmol/L (2-11); Glucose 39 mg/dL (70-100)
[2017-04-20] MEDS: Dextrose 50% Syringe 50 ML* 25 GM/50 ML SYRINGE IV PUSH PRN (07:23)
[2017-04-20] MEDS ORDERED: Influenza VAC *QUAD* 2017-18* 0.5 ML SYRINGE IM ONE (08:00)
[2017-04-20] MEDS: Insulin LISPRO* 1 UNITS UNIT SUBCUT SCH ×6 (08:43→21:59)
[2017-04-20] MEDS: Albuterol/Ipratropium NEB.SOL* Albuterol 2.5 MG/Ipratropium 0.5 MG 3 ML INH SCH ×3 (08:46→20:23)
[2017-04-20] MEDS: amLODIPine TAB* 5 MG PO SCH ×2 (08:47→21:56)
[2017-04-20] MEDS ORDERED: Insulin GLARGINE(*) 1 UNITS UNIT SUBCUT SCH (09:00)
[2017-04-20] MEDS: Carvedilol TAB* 25 MG PO SCH ×2 (09:01→21:56)
[2017-04-20] MEDS: Amiodarone TAB* 200 MG PO SCH (09:01)
[2017-04-20] MEDS: cloNIDine TAB* 0.1 MG PO SCH ×3 (09:01→21:57)
[2017-04-20] MEDS: Docusate CAP* 100 MG PO SCH (09:01)
[2017-04-20] MEDS: Aspirin EC Low Dose* 81 MG TAB.EC PO SCH (09:01)
[2017-04-20] MEDS: Lactobacillus Acidophilu (GG)* 1 CAP CAP PO SCH ×2 (09:02→21:56)
[2017-04-20] MEDS: Artificial Tears* 15 ML BTL BOTH EYES SCH ×2 (09:02→22:03)
[2017-04-20] MEDS: predniSONE TAB* 10 MG PO SCH (09:02)
[2017-04-20] MEDS: Magnesium Hydroxide LIQ* 30 ML UDC PO PRN (09:02)
[2017-04-20] MEDS: Collagenase 250 MG/GM OINT* 30 GM TOPICAL SCH (09:13)
[2017-04-20] MEDS: Nystatin CREAM* 15 GM TUBE TOPICAL SCH ×2 (09:13→22:04)
--- NOTE | 2017-04-20 12:23 | PN ---
Subjective Date of Service: 04/20/17 Interval History: Pt had BG of 39 this AM, asymptomatic. Now back to 160's. Lantus was held. Still coughing up yellow sputum Family History: Unchanged from Admission Social History: Unchanged from Admission Past Medical History: Unchanged from Admission Objective Active Medications: Acetaminophen (Tylenol Tab*) 650 mg PO Q6H PRN PRN Reason: pain/fever Last Admin: 04/19/17 16:47 Dose: 650 mg Albuterol/Ipratropium (Duoneb (Albuterol 2.5 Mg/Ipratropium 0.5 Mg)) 1 neb INH TID [facility] Last Admin: 04/20/17 08:46 Dose: 1 neb Amiodarone HCl (Cordarone Tab*) 100 mg PO Q48H [facility] Last Admin: 04/20/17 09:01 Dose: 100 mg Amlodipine Besylate (Norvasc Tab*) 5 mg PO BID [facility] Last Admin: 04/20/17 08:47 Dose: Not Given Aspirin (Aspirin Ec Low Dose*) 81 mg PO DAILY [facility] Last Admin: 04/20/17 09:01 Dose: 81 mg Carvedilol (Coreg Tab*) 25 mg PO BID [facility] Last Admin: 04/20/17 09:01 Dose: 25 mg Clonidine HCl (Catapres Tab*) 0.2 mg PO TID [facility] Last Admin: 04/20/17 09:01 Dose: 0.2 mg Collagenase (Santyl 250 Mg/Gm Oint*) 1 applic TOPICAL DAILY [facility] Last Admin: 04/20/17 09:13 Dose: 1 applic Dextrose (D50w Syringe 50 Ml*) 12.5 gm IV PUSH .FOR FS < 60 - SS PRN PRN Reason: FS < 60 Last Admin: 04/20/17 07:23 Dose: 12.5 gm Docusate Sodium (Colace Cap*) 200 mg PO DAILY [facility] Last Admin: 04/20/17 09:01 Dose: 200 mg Finasteride (Proscar Tab*) 5 mg PO BEDTIME [facility] Last Admin: 04/19/17 21:29 Dose: 5 mg Heparin Sodium (Porcine) (Heparin Vial(*)) 5,000 units SUBCUT Q8HR [facility] Last Admin: 04/20/17 06:07 Dose: 5,000 units Hydralazine HCl (Apresoline Iv*) 10 mg IV SLOW PU Q6H PRN PRN Reason: SBP>180 Last Admin: 04/12/17 16:00 Dose: 10 mg Insulin Human Lispro (Humalog*) 0 units SUBCUT ACHS [facility] PRN Reason: Protocol Last Admin: 04/20/17 08:43 Dose: Not Given Insulin Human Lispro (Humalog*) 0 units SUBCUT AC [facility] PRN Reason: Protocol Last Admin: 04/20/17 12:04 Dose: Not Given Lactobacillus Rhamnosus (Culturelle*) 1 cap PO BID [facility] Last Admin: 04/20/17 09:02 Dose: 1 cap Levothyroxine Sodium (Synthroid Tab*) 175 mcg PO MOTUWETHFRSA@0600 [facility] Last Admin: 04/20/17 06:07 Dose: 175 mcg Magnesium Hydroxide (Milk Of Magnesia Liq*) 30 ml PO Q6H PRN PRN Reason: CONSTIPATION Last Admin: 04/20/17 09:02 Dose: 30 ml Nystatin (Nystatin Cream*) 1 applic TOPICAL BID [facility] Last Admin: 04/20/17 09:13 Dose: 1 applic Polyvinyl Alcohol (Polyvinyl Alcohol 1.4% Opth*) 2 drop BOTH EYES BID [facility] Last Admin: 04/20/17 09:02 Dose: 2 drop Prednisone (Deltasone Tab*) 20 mg PO DAILY [facility] Prochlorperazine Edisylate (Compazine Inj*) 5 mg IV Q6H PRN PRN Reason: NAUSEA/VOMITING Vital Signs 04/19/17 04/19/17 04/19/17 16:00 20:00 20:02 Temperature 97.4 F Pulse Rate 64 68 Respiratory 20 18 20 Rate Blood Pressure 140/64 (mmHg) O2 Sat by Pulse 97 97 97 Oximetry 04/19/17 04/20/17 04/20/17 20:47 01:00 07:25 Temperature 97.5 F 97.8 F 97.5 F Pulse Rate 71 64 64 Respiratory 18 16 16 Rate Blood Pressure 149/72 148/41 109/31 (mmHg) O2 Sat by Pulse 97 100 95 Oximetry 04/20/17 04/20/17 08:00 08:48 Temperature Pulse Rate 65 Respiratory 18 14 Rate Blood Pressure (mmHg) O2 Sat by Pulse 95 96 Oximetry Oxygen Devices in Use Now: Nasal Cannula - at 4L Appearance: 76 yo M in nAD, AAOx3 Eyes: No Scleral Icterus, PERRLA Ears/Nose/Mouth/Throat: NL Teeth, Lips, Gums, Mucous Membranes Moist Neck: NL Appearance and Movements; NL JVP, Trachea Midline Respiratory: Symmetrical Chest Expansion and Respiratory Effort, - - decreased breath sound at LLL-much improved from prior Cardiovascular: NL Sounds; No Murmurs; No JVD, RRR Abdominal: NL Sounds; No Tenderness; No Distention Lymphatic: No Cervical Adenopathy Extremities: No Clubbing, Cyanosis, - - S/p R BKA, left foot with edema and dry gangrene on bottom of 2nd , 3rd, 4 th toes and stage 3 ulcer at 3 cm on dorsum of left foot. stage 2 decub on sacrum 10 cm in diam Skin: No Nodules or Sclerosis, - - see skin ulcers described above Neurological: Alert and Oriented x 3, NL Muscle Strength and Tone Result Diagrams: 04/20/17 06:15 04/20/17 07:38 Additional Lab and Data: Lab Results Laboratory Tests 04/15/17 04/15/17 04/15/17 08:06 11:58 17:09 Glucose POC Glucose (mg/dL) 375 H 361 H 233 H 04/15/17 04/16/17 21:19 05:05 Glucose 220 H POC Glucose (mg/dL) 223 H Microbiology and Other Data: Microbiology 04/12/17 11:49 Legionella Urinary Antigen - Final Urine Negative Legionella Streptococcus pneumoniae Ag Screen - Final Negative S. pneumo Antigen Diagnostic Imaging: Reviewed CT chest, there is moderate R-sided pleural effusion, dependent/ layering Assess/Plan/Problems-Billing Assessment: Mr. Camargo is a 76yo M with PMH CAD, DM2, here w/ pneumonia, REY, sarcoidosis, resulting in hypercapneic respiratory failure. - Patient Problems (1) Acute hypercapnic respiratory failure Comment: - Respiratory status continues to improve. - Hypercapnea due to pneumonia, REY, and obesity hypoventilation syndrome. - Responding well to BiPAP overnight. Trilogy device recommended by pulmonology costs 800 dollars /month and is cost prohibitive for STR. Dr. Deng agreed that BIPAP is an acceptable alternative - Patient does not have a h/o COPD. (2) Fluid overload Comment: - Secondary to IV fluids and meds. - Continue diuresis with Metolazone. with 1 mg of IV Bumex on 04/19/17 he diuresed 4000 ml. will cont PO Bumex now. Pt is allergic to Lasix stated that it "dropped his kidneys" (3) Pleural effusion associated with pulmonary infection Comment: -Discussed potential thoracentesis w/ Dr. Deng, she felt this was transudate due to volume overload -Will need outpatient pulmonology f/u -cont diuresis (4) Healthcare associated bacterial pneumonia Comment: - Legionella and pneumococcal Ag are negative. - Blood cultures showed no growth. - Cefepime and Levofloxacin -finished 7 day course on 04/19/17 - Leukocytosis trending up, likely secondary to steroids, as clinically the patient shows signs of improvement. (5) Stage II pressure ulcer of sacral region Comment: - Present on admission. - Continue care as per Wound clinic recommendation. (6) CKD (chronic kidney disease) stage 3, GFR 30-59 ml/min Comment: - Renal function stable. (7) Diabetic foot ulcer Comment: - Present on admission also with PAD - Continue turn/position for sacral decub - Surgery input appreciated re: sacrum and L toes. Will d/w Dr. Alegria - pt has h/o PAD and popliteal artery stenosis on dopplers in 03/09 (8) Type 2 diabetes mellitus Comment: - with hypoglycemia today, will d/c Lantus - Continue Lispro SS. (9) HTN (hypertension) Comment: - Controlled. - Continue Clonidine, Coreg, and amlodipine (10) DVT prophylaxis Current Visit: Yes Status: Acute Comment: - SQ heparin. (11) Sarcoidosis Comment: on chronic PO prednisone, titrating back down to goal of 10 mg/day (12) DVT prophylaxis Comment: heparin sc Status and Disposition: Inpatient
[2017-04-20] MEDS: Finasteride TAB* 5 MG PO SCH (21:58)
[2017-04-21 05:42] LABS: Hematocrit 32 % (42-52); Hemoglobin 10.5 g/dl (14.0-18.0); Mean Corpuscular HGB Conc 33 g/dl (31-36); Mean Corpuscular Hemoglobin 28 pg (27-31); Mean Corpuscular Volume 85 fL (80-94); Mean Platelet Volume 11 um3 (7.4-10.4); Red Blood Count 3.79 10^6/ul (4.0-5.4); Red Cell Distribution Width 15 % (10.5-15); White Blood Count 21.1 10^3/ul (3.5-10.8)
[2017-04-21 05:53] LABS: Calcium 8.4 mg/dL (8.6-10.3); EGFR African American 66.8 (>60)
[2017-04-21 06:16] LABS: Comments Flag Yes
[2017-04-21 06:17] LABS: Add Diff/Slide Review? Slide Review Added
[2017-04-21] MEDS: Levothyroxine TAB* 175 MCG TAB PO SCH (06:17)
[2017-04-21] MEDS: Heparin VIAL(*) 5000 UNITS/ML VIAL (FIVE THOUSAND) SUBCUT SCH ×3 (06:18→20:50)
[2017-04-21 06:23] LABS: Potassium 5.5 mmol/L (3.5-5.0)
[2017-04-21] MEDS ORDERED: Sodium Polystyrene ORAL.SOL* 15 GM/60 ML BTL PO ONE (07:43)
[2017-04-21] MEDS ORDERED: predniSONE TAB* 20 MG PO SCH (09:00)
[2017-04-21] MEDS: cloNIDine TAB* 0.1 MG PO SCH ×3 (09:03→20:51)
[2017-04-21] MEDS: Carvedilol TAB* 25 MG PO SCH ×2 (09:04→20:53)
[2017-04-21] MEDS: Insulin LISPRO* 1 UNITS UNIT SUBCUT SCH ×5 (09:04→21:32)
[2017-04-21] MEDS: Aspirin EC Low Dose* 81 MG TAB.EC PO SCH (09:04)
[2017-04-21] MEDS: amLODIPine TAB* 5 MG PO SCH ×2 (09:04→20:53)
[2017-04-21] MEDS: Docusate CAP* 100 MG PO SCH (09:04)
[2017-04-21] MEDS: Lactobacillus Acidophilu (GG)* 1 CAP CAP PO SCH ×2 (09:04→20:51)
[2017-04-21] MEDS: Bumetanide TAB* 2 MG PO SCH (09:04)
[2017-04-21] MEDS: Artificial Tears* 15 ML BTL BOTH EYES SCH ×2 (09:06→20:51)
[2017-04-21] MEDS: Nystatin CREAM* 15 GM TUBE TOPICAL SCH ×2 (09:06→21:31)
[2017-04-21] MEDS: Collagenase 250 MG/GM OINT* 30 GM TOPICAL SCH (09:39)
[2017-04-21] MEDS: Albuterol/Ipratropium NEB.SOL* Albuterol 2.5 MG/Ipratropium 0.5 MG 3 ML INH SCH ×3 (09:45→20:29)
--- NOTE | 2017-04-21 13:05 | CONSULT ---
Consult Consult: Date of Service: 04/21/17 Reason for Consultation: LLE arterial insufficiency with multiple foot wounds HPI (brief): Mr. Villalpando is a 76 year old male with multiple comorbidities including peripheral arterial disease. He underwent a right BKA in 2010. He was admitted to [facility] 04/12/17 with pneumonia and was discovered to have necrotic left toes and a chronic wound on the dorsum of his left foot. In hospital ultrasound shows multiple areas of stenoses and/or occlusion in the popliteal and IP distribution. Patient Name: FLORA VILLALPANDO Medical Record#: [id number] Ordering Physician: Geremias Leigh MD Acct.#: [id number] : 1940 Age: 76 Sex: M Location: IMAGING Exam Date: 03/22/17 ADM Status: REG REF Order Information: VL LOWER EXT ART DUPLEX LEFT Accession Number: [id number] CPT: 61523 INDICATION: Left dorsal foot ulceration in a patient with a history of right BKA. COMPARISON: PATTIE dated September 09, 2011 TECHNIQUE: Whitaker scale, color Doppler, and spectral analysis utilized to image the left lower extremity arteries. Flow velocities were determined at each visualized artery. REPORT: The left common femoral artery, proximal femoral profundus and superficial femoral artery arteries exhibit patency in the presence of atherosclerotic calcification. There is no pathologically elevated velocities to indicate significant stenosis. At the superior portion of the left popliteal artery there is more advanced calcified atherosclerosis causing stenosis with velocities measuring up to 223 cm/s. There is no definite flow identified at the tibioperoneal trunk or the proximal infrapopliteal arteries. Flow is identified at the distal ARLEY into the dorsalis pedis artery and in the distal posterior tibial artery. No flow is recorded in the peroneal artery. IMPRESSION: Patent flow without pathologic increased velocities is documented from the left common femoral artery to the distal superficial femoral artery. The superior mid-level popliteal artery exhibits evidence of high-grade stenosis and there is occlusion at the tibioperoneal trunk and proximal infrapopliteal arteries. In the presence of nonhealing foot ulcer catheter arteriography will be necessary to better characterize this patient's left lower extremity arterial disease. <Electronically signed by Jah Alegria MD in [place]> 03/22/17 1205 Dictated By: Jah Alegria MD Dictated Date/Time: 03/22/17 1205 Transcribed Date/Time: 03/22/17 1200 Copy to: CC:Julián Fierro MD; Geremias Leigh MD Imaging - [facility] Imaging - [facility] Imaging - [facility] [address] [facility] [id number] [place] [id number] ph ([phone]) ph ([phone]) ph ([phone]) of PE: Selected Entries 04/21/17 12:19 Temperature 98 F Pulse Rate 64 Respiratory 18 Rate Blood Pressure 150/60 (mmHg) O2 Sat by Pulse 96 Oximetry NAD, AAO x 3 1+ pulses palpated in bilateral [employer] No pulses palpable in LLE pop or pedal arteries 2+ pitting edema of the lower left leg Right lower leg and foot are wrapped in JUSTINA at the time of consultation RRR, S1/S2, "loud" S2 CTAB Abdomen soft, NT Summary: 76 year old man with evidence of right foot critical limb ischemia and gangrenous right toes in the presence of subjective and objective evidence of RLE arterial insufficiency. Plan & Recommendations: 1. Based on the 03/22/17 arterial duplex, a RLE arteriogram would be the next most appropriate imaging modality. That will help determine the feasibility of potential endovascular revascularization, surgical bypass or amputation. 2. As I discussed with the patient, it is possible that an amputation is inevitable in the presence of gangrene and/or osteomyelitis, but revascularization would still be beneficial to heal a surgical site and minimize amputation. 3. I have left a voicemail for "Karla" ([phone]) upon Mr. Villalpanod' request to discuss endovascular options. 4. He may be discharged at this time and the Interventional Radiology clinic will contact him to schedule angiography. Please provide Interventional Radiology clinic contact information with discharge instructions with instructions to call our office if we are unable to make contact with him.
--- NOTE | 2017-04-21 16:32 | PN ---
Subjective Date of Service: 04/21/17 Interval History: Pt feels better daily. no new complaints. Family History: Unchanged from Admission Social History: Unchanged from Admission Past Medical History: Unchanged from Admission Objective Active Medications: Acetaminophen (Tylenol Tab*) 650 mg PO Q6H PRN PRN Reason: pain/fever Last Admin: 04/19/17 16:47 Dose: 650 mg Albuterol/Ipratropium (Duoneb (Albuterol 2.5 Mg/Ipratropium 0.5 Mg)) 1 neb INH TID [facility] Last Admin: 04/21/17 14:17 Dose: 1 neb Amiodarone HCl (Cordarone Tab*) 100 mg PO Q48H [facility] Last Admin: 04/20/17 09:01 Dose: 100 mg Amlodipine Besylate (Norvasc Tab*) 5 mg PO BID [facility] Last Admin: 04/21/17 09:04 Dose: 5 mg Aspirin (Aspirin Ec Low Dose*) 81 mg PO DAILY [facility] Last Admin: 04/21/17 09:04 Dose: 81 mg Bumetanide (Bumex Tab*) 2 mg PO DAILY [facility] Last Admin: 04/21/17 09:04 Dose: 2 mg Carvedilol (Coreg Tab*) 25 mg PO BID [facility] Last Admin: 04/21/17 09:04 Dose: 25 mg Clonidine HCl (Catapres Tab*) 0.2 mg PO TID [facility] Last Admin: 04/21/17 12:43 Dose: 0.2 mg Collagenase (Santyl 250 Mg/Gm Oint*) 1 applic TOPICAL DAILY [facility] Last Admin: 04/21/17 09:39 Dose: 1 applic Dextrose (D50w Syringe 50 Ml*) 12.5 gm IV PUSH .FOR FS < 60 - SS PRN PRN Reason: FS < 60 Last Admin: 04/12/17 17:01 Dose: 12.5 gm Docusate Sodium (Colace Cap*) 200 mg PO DAILY [facility] Last Admin: 04/21/17 09:04 Dose: 200 mg Finasteride (Proscar Tab*) 5 mg PO BEDTIME [facility] Last Admin: 04/20/17 21:58 Dose: 5 mg Heparin Sodium (Porcine) (Heparin Vial(*)) 5,000 units SUBCUT Q8HR [facility] Last Admin: 04/21/17 12:39 Dose: 5,000 units Hydralazine HCl (Apresoline Iv*) 10 mg IV SLOW PU Q6H PRN PRN Reason: SBP>180 Last Admin: 04/12/17 16:00 Dose: 10 mg Insulin Human Lispro (Humalog*) 0 units SUBCUT ACHS [facility] PRN Reason: Protocol Last Admin: 04/21/17 12:39 Dose: 9 units Lactobacillus Rhamnosus (Culturelle*) 1 cap PO BID [facility] Last Admin: 04/21/17 09:04 Dose: 1 cap Levothyroxine Sodium (Synthroid Tab*) 175 mcg PO MOTUWETHFRSA@0600 [facility] Last Admin: 04/21/17 06:17 Dose: 175 mcg Magnesium Hydroxide (Milk Of Magnesia Liq*) 30 ml PO Q6H PRN PRN Reason: CONSTIPATION Last Admin: 04/20/17 09:02 Dose: 30 ml Nystatin (Nystatin Cream*) 1 applic TOPICAL BID [facility] Last Admin: 04/21/17 09:06 Dose: 1 applic Polyvinyl Alcohol (Polyvinyl Alcohol 1.4% Opth*) 2 drop BOTH EYES BID [facility] Last Admin: 04/21/17 09:06 Dose: 2 drop Prednisone (Deltasone Tab*) 10 mg PO DAILY [facility] Prochlorperazine Edisylate (Compazine Inj*) 5 mg IV Q6H PRN PRN Reason: NAUSEA/VOMITING Vital Signs 04/20/17 04/20/17 04/20/17 20:00 20:23 21:27 Temperature Pulse Rate 70 66 Respiratory 20 20 20 Rate Blood Pressure 119/42 (mmHg) O2 Sat by Pulse 96 96 95 Oximetry 04/20/17 04/21/17 04/21/17 23:34 00:27 07:47 Temperature 98.0 F 98.0 F 98.5 F Pulse Rate 65 53 53 Respiratory 28 22 20 Rate Blood Pressure 136/58 129/40 140/67 (mmHg) O2 Sat by Pulse 91 95 96 Oximetry 04/21/17 04/21/17 04/21/17 08:00 08:25 09:45 Temperature 98.5 F Pulse Rate 53 66 Respiratory 20 20 Rate Blood Pressure 140/67 (mmHg) O2 Sat by Pulse 96 Oximetry 04/21/17 04/21/17 04/21/17 11:43 12:19 15:35 Temperature 97.1 F 98 F 97.9 F Pulse Rate 59 64 70 Respiratory 20 18 16 Rate Blood Pressure 129/54 150/60 125/50 (mmHg) O2 Sat by Pulse 94 96 94 Oximetry Oxygen Devices in Use Now: Nasal Cannula - at 3L Appearance: 76 yo M in NAD, aAOx3 Eyes: No Scleral Icterus, PERRLA Ears/Nose/Mouth/Throat: NL Teeth, Lips, Gums, Mucous Membranes Moist Neck: NL Appearance and Movements; NL JVP, Trachea Midline Respiratory: Symmetrical Chest Expansion and Respiratory Effort, - - decreased breath sounds at LLL, otherwise clear Abdominal: NL Sounds; No Tenderness; No Distention, No Hepatosplenomegaly Lymphatic: No Cervical Adenopathy Extremities: No Clubbing, Cyanosis, - - left foot edema-pitting +2 Skin: No Nodules or Sclerosis, - - left foot-necrotic bottoms of toes 2-4 dorsum , of left foot ulcer at 3 cm-stage 2-3. R leg s/p BKA. Sacral area-decub stage 2 at 10 cm in diam Neurological: Alert and Oriented x 3, NL Muscle Strength and Tone Result Diagrams: 04/21/17 04:52 04/21/17 04:47 Additional Lab and Data: Lab Results Laboratory Tests 04/15/17 04/15/17 04/15/17 08:06 11:58 17:09 Glucose POC Glucose (mg/dL) 375 H 361 H 233 H 04/15/17 04/16/17 21:19 05:05 Glucose 220 H POC Glucose (mg/dL) 223 H Microbiology and Other Data: Microbiology 04/12/17 11:49 Legionella Urinary Antigen - Final Urine Negative Legionella Streptococcus pneumoniae Ag Screen - Final Negative S. pneumo Antigen Diagnostic Imaging: Reviewed CT chest, there is moderate R-sided pleural effusion, dependent/ layering Assess/Plan/Problems-Billing Assessment: Mr. Camargo is a 76yo M with PMH CAD, DM2, here w/ pneumonia, REY, sarcoidosis, resulting in hypercapneic respiratory failure. - Patient Problems (1) Acute hypercapnic respiratory failure Comment: - Respiratory status continues to improve. - Hypercapnea due to pneumonia, REY, and obesity hypoventilation syndrome. - Responding well to BiPAP overnight. Trilogy device recommended by pulmonology costs 800 dollars /month and is cost prohibitive for STR. Dr. Deng agreed that BIPAP is an acceptable alternative - Patient does not have a h/o COPD. (2) Fluid overload Comment: - Secondary to IV fluids and meds. - Continue diuresis with Metolazone. with 1 mg of IV Bumex on 04/19/17 he diuresed 4000 ml. will cont PO Bumex now. Pt is allergic to Lasix stated that it "dropped his kidneys" (3) Pleural effusion associated with pulmonary infection Comment: -Discussed potential thoracentesis w/ Dr. Deng, she felt this was transudate due to volume overload -Will need outpatient pulmonology f/u -cont diuresis (4) Healthcare associated bacterial pneumonia Comment: - Legionella and pneumococcal Ag are negative. - Blood cultures showed no growth. - Cefepime and Levofloxacin -finished 7 day course on 04/19/17 - Leukocytosis >20 000 today, likely secondary to steroids, as clinically the patient shows signs of improvement. (5) Stage II pressure ulcer of sacral region Comment: - Present on admission. - Continue care as per Wound clinic recommendation. (6) CKD (chronic kidney disease) stage 3, GFR 30-59 ml/min Comment: - Renal function stable. (7) Diabetic foot ulcer Comment: - Present on admission also with PAD d/w DR. Leigh who will f/u with pt at the wound clinic. D/w Dr. Alegria-appreciate consult. F/u as outpatient for possible angiogram and angiplasty Pt has dry agngrene of toes-not acutely infected. left dorsum of foot ulcer with mild necrosis, cont topical care (8) Type 2 diabetes mellitus Comment: hypoglycemia resolved. will restart Lantus at a low dose - Continue Lispro SS. (9) HTN (hypertension) Comment: - Controlled. - Continue Clonidine, Coreg, and amlodipine (10) Sarcoidosis Comment: on chronic PO prednisone, titrating back down to goal of 10 mg/day (11) DVT prophylaxis Comment: heparin sc Status and Disposition: Inpatient , plan to d/c back to [facility] on Monday
[2017-04-21] MEDS: Insulin GLARGINE(*) 1 UNITS UNIT SUBCUT SCH (18:20)
[2017-04-21] MEDS: Finasteride TAB* 5 MG PO SCH (20:53)
[2017-04-22] MEDS: Heparin VIAL(*) 5000 UNITS/ML VIAL (FIVE THOUSAND) SUBCUT SCH ×3 (06:26→21:12)
[2017-04-22] MEDS: Levothyroxine TAB* 175 MCG TAB PO SCH (06:26)
[2017-04-22] MEDS: Bumetanide TAB* 2 MG PO SCH (08:03)
[2017-04-22] MEDS: cloNIDine TAB* 0.1 MG PO SCH ×3 (08:03→21:10)
[2017-04-22] MEDS: Docusate CAP* 100 MG PO SCH (08:03)
[2017-04-22] MEDS: Amiodarone TAB* 200 MG PO SCH (08:03)
[2017-04-22] MEDS: Aspirin EC Low Dose* 81 MG TAB.EC PO SCH (08:03)
[2017-04-22] MEDS: Carvedilol TAB* 25 MG PO SCH ×2 (08:03→21:10)
[2017-04-22] MEDS: predniSONE TAB* 10 MG PO SCH (08:03)
[2017-04-22] MEDS: amLODIPine TAB* 5 MG PO SCH ×2 (08:04→21:11)
[2017-04-22] MEDS: Albuterol/Ipratropium NEB.SOL* Albuterol 2.5 MG/Ipratropium 0.5 MG 3 ML INH SCH ×3 (08:09→19:04)
[2017-04-22] MEDS: Insulin LISPRO* 1 UNITS UNIT SUBCUT SCH ×4 (09:29→21:09)
[2017-04-22] MEDS: Lactobacillus Acidophilu (GG)* 1 CAP CAP PO SCH ×2 (09:30→21:11)
[2017-04-22] MEDS: Magnesium Hydroxide LIQ* 30 ML UDC PO PRN (09:30)
[2017-04-22] MEDS: Collagenase 250 MG/GM OINT* 30 GM TOPICAL SCH (09:31)
[2017-04-22] MEDS: Artificial Tears* 15 ML BTL BOTH EYES SCH ×2 (09:31→21:11)
[2017-04-22] MEDS: Nystatin CREAM* 15 GM TUBE TOPICAL SCH ×2 (09:31→21:11)
[2017-04-22 09:45] LABS: Hematocrit 35 % (42-52); Hemoglobin 11.4 g/dl (14.0-18.0); Mean Corpuscular HGB Conc 32 g/dl (31-36); Mean Corpuscular Hemoglobin 28 pg (27-31); Mean Corpuscular Volume 85 fL (80-94); Mean Platelet Volume 10 um3 (7.4-10.4); Red Blood Count 4.14 10^6/ul (4.0-5.4); Red Cell Distribution Width 15 % (10.5-15); White Blood Count 19.5 10^3/ul (3.5-10.8)
[2017-04-22 10:03] LABS: BUN/Creatinine Ratio 42.9 (8-20); Calcium 8.6 mg/dL (8.6-10.3); EGFR African American 67.4 (>60); EGFR Non-African American 52.4 (>60); Potassium 4.5 mmol/L (3.5-5.0)
--- NOTE | 2017-04-22 15:49 | PN ---
Subjective Date of Service: 04/22/17 Interval History: pt feels "less swollen every day" Family History: Unchanged from Admission Social History: Unchanged from Admission Past Medical History: Unchanged from Admission Objective Active Medications: Acetaminophen (Tylenol Tab*) 650 mg PO Q6H PRN PRN Reason: pain/fever Last Admin: 04/19/17 16:47 Dose: 650 mg Albuterol/Ipratropium (Duoneb (Albuterol 2.5 Mg/Ipratropium 0.5 Mg)) 1 neb INH TID [facility] [place] Last Admin: 04/22/17 13:23 Dose: 1 neb Amiodarone HCl (Cordarone Tab*) 100 mg PO Q48H [facility] Last Admin: 04/22/17 08:03 Dose: 100 mg Amlodipine Besylate (Norvasc Tab*) 5 mg PO BID [facility] [place] Last Admin: 04/22/17 08:04 Dose: 5 mg Aspirin (Aspirin Ec Low Dose*) 81 mg PO DAILY [facility] [place] Last Admin: 04/22/17 08:03 Dose: 81 mg Bumetanide (Bumex Tab*) 2 mg PO DAILY [facility] [place] Last Admin: 04/22/17 08:03 Dose: 2 mg Carvedilol (Coreg Tab*) 25 mg PO BID [facility] [place] Last Admin: 04/22/17 08:03 Dose: 25 mg Clonidine HCl (Catapres Tab*) 0.2 mg PO TID [facility] [place] Last Admin: 04/22/17 15:13 Dose: 0.2 mg Collagenase (Santyl 250 Mg/Gm Oint*) 1 applic TOPICAL DAILY [facility] [place] Last Admin: 04/22/17 09:31 Dose: 1 applic Dextrose (D50w Syringe 50 Ml*) 12.5 gm IV PUSH .FOR FS < 60 - SS PRN PRN Reason: FS < 60 Last Admin: 04/12/17 17:01 Dose: 12.5 gm Docusate Sodium (Colace Cap*) 200 mg PO DAILY [facility] [place] Last Admin: 04/22/17 08:03 Dose: 200 mg Finasteride (Proscar Tab*) 5 mg PO BEDTIME [facility] [place] Last Admin: 04/21/17 20:53 Dose: 5 mg Heparin Sodium (Porcine) (Heparin Vial(*)) 5,000 units SUBCUT Q8HR [facility] [place] Last Admin: 04/22/17 15:14 Dose: 5,000 units Hydralazine HCl (Apresoline Iv*) 10 mg IV SLOW PU Q6H PRN PRN Reason: SBP>180 Last Admin: 04/12/17 16:00 Dose: 10 mg Insulin Glargine (Lantus(*)) 5 units SUBCUT Q24H [facility] [place] Last Admin: 04/21/17 18:20 Dose: 5 units Insulin Human Lispro (Humalog*) 0 units SUBCUT ACHS [facility] PRN Reason: Protocol Last Admin: 04/22/17 12:21 Dose: 3 units Lactobacillus Rhamnosus (Culturelle*) 1 cap PO BID [facility] [place] Last Admin: 04/22/17 09:30 Dose: 1 cap Levothyroxine Sodium (Synthroid Tab*) 175 mcg PO MOTUWETHFRSA@0600 [facility] [place] Last Admin: 04/22/17 06:26 Dose: 175 mcg Magnesium Hydroxide (Milk Of Magnesia Liq*) 30 ml PO Q6H PRN PRN Reason: CONSTIPATION Last Admin: 04/22/17 09:30 Dose: 30 ml Nystatin (Nystatin Cream*) 1 applic TOPICAL BID [facility] [place] Last Admin: 04/22/17 09:31 Dose: 1 applic Polyvinyl Alcohol (Polyvinyl Alcohol 1.4% Opth*) 2 drop BOTH EYES BID [facility] [place] Last Admin: 04/22/17 09:31 Dose: 2 drop Prednisone (Deltasone Tab*) 10 mg PO DAILY [facility] [place] Last Admin: 04/22/17 08:03 Dose: 10 mg Prochlorperazine Edisylate (Compazine Inj*) 5 mg IV Q6H PRN PRN Reason: NAUSEA/VOMITING Vital Signs 04/21/17 04/21/17 04/21/17 18:58 20:30 23:22 Temperature 98.0 F Pulse Rate 66 66 Respiratory 20 20 Rate Blood Pressure 128/44 (mmHg) O2 Sat by Pulse 100 100 100 Oximetry 04/21/17 04/21/17 04/22/17 23:23 23:41 04:32 Temperature 97.5 F 97.3 F Pulse Rate 62 62 Respiratory 16 16 16 Rate Blood Pressure 109/44 136/47 (mmHg) O2 Sat by Pulse 100 96 Oximetry 04/22/17 04/22/17 04/22/17 08:00 08:10 08:17 Temperature 98.1 F Pulse Rate 65 64 Respiratory 16 16 Rate Blood Pressure 157/67 (mmHg) O2 Sat by Pulse 95 Oximetry 04/22/17 04/22/17 12:55 13:25 Temperature 97.6 F Pulse Rate 62 63 Respiratory 16 16 Rate Blood Pressure 114/53 (mmHg) O2 Sat by Pulse 97 97 Oximetry Oxygen Devices in Use Now: Nasal Cannula - at 3L Appearance: 76 yo M in nAD, AAOx3 Eyes: No Scleral Icterus, PERRLA Ears/Nose/Mouth/Throat: NL Teeth, Lips, Gums, Mucous Membranes Moist Neck: NL Appearance and Movements; NL JVP, Trachea Midline Respiratory: Symmetrical Chest Expansion and Respiratory Effort, Clear to Auscultation Cardiovascular: NL Sounds; No Murmurs; No JVD, RRR Abdominal: NL Sounds; No Tenderness; No Distention Lymphatic: No Cervical Adenopathy Extremities: No Clubbing, Cyanosis, - - left foot edema improving Skin: No Nodules or Sclerosis, - - left foot necrotic toes-dry gangrene- unchanged, dorsum of foot, small 2 cm ulcer stage 3. sacral decub not examined today Neurological: Alert and Oriented x 3, NL Muscle Strength and Tone Result Diagrams: 04/22/17 09:31 04/22/17 09:31 Additional Lab and Data: Lab Results Laboratory Tests 04/15/17 04/15/17 04/15/17 08:06 11:58 17:09 Glucose POC Glucose (mg/dL) 375 H 361 H 233 H 04/15/17 04/16/17 21:19 05:05 Glucose 220 H POC Glucose (mg/dL) 223 H Microbiology and Other Data: Microbiology 04/12/17 11:49 Legionella Urinary Antigen - Final Urine Negative Legionella Streptococcus pneumoniae Ag Screen - Final Negative S. pneumo Antigen Diagnostic Imaging: Reviewed CT chest, there is moderate R-sided pleural effusion, dependent/ layering Assess/Plan/Problems-Billing Assessment: Mr. Camargo is a 76yo M with PMH CAD, DM2, here w/ pneumonia, REY, sarcoidosis, resulting in hypercapneic respiratory failure. - Patient Problems (1) Acute hypercapnic respiratory failure Comment: - Respiratory status continues to improve. - Hypercapnea due to pneumonia, REY, and obesity hypoventilation syndrome. - Responding well to BiPAP overnight. Trilogy device recommended by pulmonology costs 800 dollars /month and is cost prohibitive for STR. Dr. Deng agreed that BIPAP is an acceptable alternative - Patient does not have a h/o COPD. (2) Fluid overload Comment: - Secondary to IV fluids and meds. - Continue diuresis with Metolazone. with 1 mg of IV Bumex on 04/19/17 he diuresed 4000 ml. will cont PO Bumex Pt is allergic to Lasix stated that it "dropped his kidneys" (3) Pleural effusion associated with pulmonary infection Comment: -Discussed potential thoracentesis w/ Dr. Deng, she felt this was transudate due to volume overload -Will need outpatient pulmonology f/u -cont diuresis (4) Healthcare associated bacterial pneumonia Comment: - Legionella and pneumococcal Ag are negative. - Blood cultures showed no growth. - Cefepime and Levofloxacin -finished 7 day course on 04/19/17 - Leukocytosis likely secondary to steroids, as clinically the patient shows signs of improvement. (5) Stage II pressure ulcer of sacral region Comment: - Present on admission. - Continue care as per Wound clinic recommendation. (6) CKD (chronic kidney disease) stage 3, GFR 30-59 ml/min Comment: - Renal function stable. (7) Diabetic foot ulcer Comment: - Present on admission also with PAD d/w DR. Leigh who will f/u with pt at the wound clinic. D/w Dr. Alegria-appreciate consult. F/u as outpatient for possible angiogram and angiplasty Pt has dry agngrene of toes-not acutely infected. left dorsum of foot ulcer with mild necrosis, cont topical care (8) Type 2 diabetes mellitus Comment: hypoglycemia resolved - Continue Lispro SS and Lantus (9) HTN (hypertension) Comment: - Controlled. - Continue Clonidine, Coreg, and amlodipine (10) Sarcoidosis Comment: on chronic PO prednisone back down to goal of 10 mg/day (11) DVT prophylaxis Comment: heparin sc Status and Disposition: Inpatient , plan to d/c back to [facility] on Monday
[2017-04-22] MEDS: Insulin GLARGINE(*) 1 UNITS UNIT SUBCUT SCH (17:31)
[2017-04-22] MEDS: Finasteride TAB* 5 MG PO SCH (21:10)
[2017-04-23 06:10] LABS: Hematocrit 34 % (42-52); Hemoglobin 11.1 g/dl (14.0-18.0); Mean Corpuscular HGB Conc 33 g/dl (31-36); Mean Corpuscular Hemoglobin 28 pg (27-31); Mean Corpuscular Volume 85 fL (80-94); Mean Platelet Volume 10 um3 (7.4-10.4); Red Cell Distribution Width 15 % (10.5-15); White Blood Count 18.5 10^3/ul (3.5-10.8)
[2017-04-23] MEDS: Heparin VIAL(*) 5000 UNITS/ML VIAL (FIVE THOUSAND) SUBCUT SCH ×3 (06:14→21:42)
[2017-04-23 07:49] LABS: BUN/Creatinine Ratio 45.1 (8-20); Calcium 8.7 mg/dL (8.6-10.3); EGFR African American 62.5 (>60); EGFR Non-African American 48.6 (>60); Potassium 4.6 mmol/L (3.5-5.0)
[2017-04-23] MEDS: Carvedilol TAB* 25 MG PO SCH ×2 (08:03→21:43)
[2017-04-23] MEDS: Bumetanide TAB* 2 MG PO SCH (08:03)
[2017-04-23] MEDS: cloNIDine TAB* 0.1 MG PO SCH ×3 (08:03→21:16)
[2017-04-23] MEDS: Artificial Tears* 15 ML BTL BOTH EYES SCH ×2 (08:04→21:42)
[2017-04-23] MEDS: predniSONE TAB* 10 MG PO SCH (08:04)
[2017-04-23] MEDS: Aspirin EC Low Dose* 81 MG TAB.EC PO SCH (08:04)
[2017-04-23] MEDS: Collagenase 250 MG/GM OINT* 30 GM TOPICAL SCH (08:04)
[2017-04-23] MEDS: amLODIPine TAB* 5 MG PO SCH ×2 (08:04→21:16)
[2017-04-23] MEDS: Nystatin CREAM* 15 GM TUBE TOPICAL SCH ×2 (08:05→21:16)
[2017-04-23] MEDS: Magnesium Hydroxide LIQ* 30 ML UDC PO PRN ×2 (08:12→12:53)
[2017-04-23] MEDS: Lactobacillus Acidophilu (GG)* 1 CAP CAP PO SCH ×2 (08:12→21:16)
[2017-04-23] MEDS: Insulin LISPRO* 1 UNITS UNIT SUBCUT SCH ×4 (08:12→22:06)
[2017-04-23] MEDS: Docusate CAP* 100 MG PO SCH (08:12)
[2017-04-23] MEDS: Albuterol/Ipratropium NEB.SOL* Albuterol 2.5 MG/Ipratropium 0.5 MG 3 ML INH SCH ×3 (08:19→19:26)
[2017-04-23] MEDS: Insulin GLARGINE(*) 1 UNITS UNIT SUBCUT SCH (12:52)
--- NOTE | 2017-04-23 14:25 | PN ---
Subjective Date of Service: 04/23/17 Interval History: Pt feels well, happy with how his edema had resolved. Family History: Unchanged from Admission Social History: Unchanged from Admission Past Medical History: Unchanged from Admission Objective Active Medications: Acetaminophen (Tylenol Tab*) 650 mg PO Q6H PRN PRN Reason: pain/fever Last Admin: 04/19/17 16:47 Dose: 650 mg Albuterol/Ipratropium (Duoneb (Albuterol 2.5 Mg/Ipratropium 0.5 Mg)) 1 neb INH TID [facility] Last Admin: 04/23/17 13:51 Dose: 1 neb Amiodarone HCl (Cordarone Tab*) 100 mg PO Q48H [facility] Last Admin: 04/22/17 08:03 Dose: 100 mg Amlodipine Besylate (Norvasc Tab*) 5 mg PO BID [facility] Last Admin: 04/23/17 08:04 Dose: 5 mg Aspirin (Aspirin Ec Low Dose*) 81 mg PO DAILY [facility] Last Admin: 04/23/17 08:04 Dose: 81 mg Bumetanide (Bumex Tab*) 2 mg PO DAILY [facility] Last Admin: 04/23/17 08:03 Dose: 2 mg Carvedilol (Coreg Tab*) 25 mg PO BID [facility] Last Admin: 04/23/17 08:03 Dose: 25 mg Clonidine HCl (Catapres Tab*) 0.2 mg PO TID [facility] Last Admin: 04/23/17 12:53 Dose: 0.2 mg Collagenase (Santyl 250 Mg/Gm Oint*) 1 applic TOPICAL DAILY [facility] Last Admin: 04/23/17 08:04 Dose: 1 applic Dextrose (D50w Syringe 50 Ml*) 12.5 gm IV PUSH .FOR FS < 60 - SS PRN PRN Reason: FS < 60 Last Admin: 04/12/17 17:01 Dose: 12.5 gm Docusate Sodium (Colace Cap*) 200 mg PO DAILY [facility] Last Admin: 04/23/17 08:12 Dose: 200 mg Finasteride (Proscar Tab*) 5 mg PO BEDTIME [facility] Last Admin: 04/22/17 21:10 Dose: 5 mg Heparin Sodium (Porcine) (Heparin Vial(*)) 5,000 units SUBCUT Q8HR [facility] Last Admin: 04/23/17 12:53 Dose: 5,000 units Hydralazine HCl (Apresoline Iv*) 10 mg IV SLOW PU Q6H PRN PRN Reason: SBP>180 Last Admin: 04/12/17 16:00 Dose: 10 mg Insulin Glargine (Lantus(*)) 10 units SUBCUT Q24H [facility] Last Admin: 04/23/17 12:52 Dose: 10 units Insulin Human Lispro (Humalog*) 0 units SUBCUT ACHS [facility] PRN Reason: Protocol Last Admin: 04/23/17 12:53 Dose: 3 units Lactobacillus Rhamnosus (Culturelle*) 1 cap PO BID [facility] Last Admin: 04/23/17 08:12 Dose: 1 cap Levothyroxine Sodium (Synthroid Tab*) 175 mcg PO MOTUWETHFRSA@0600 [facility] Last Admin: 04/22/17 06:26 Dose: 175 mcg Magnesium Hydroxide (Milk Of Magnesia Liq*) 30 ml PO Q6H PRN PRN Reason: CONSTIPATION Last Admin: 04/23/17 12:53 Dose: 30 ml Nystatin (Nystatin Cream*) 1 applic TOPICAL BID [facility] Last Admin: 04/23/17 08:05 Dose: 1 applic Polyvinyl Alcohol (Polyvinyl Alcohol 1.4% Opth*) 2 drop BOTH EYES BID [facility] Last Admin: 04/23/17 08:04 Dose: 2 drop Prednisone (Deltasone Tab*) 10 mg PO DAILY [facility] Last Admin: 04/23/17 08:04 Dose: 10 mg Prochlorperazine Edisylate (Compazine Inj*) 5 mg IV Q6H PRN PRN Reason: NAUSEA/VOMITING Vital Signs 04/22/17 04/22/17 04/22/17 15:56 19:05 20:21 Temperature 97.7 F 97.9 F Pulse Rate 66 70 61 Respiratory 20 16 16 Rate Blood Pressure 156/70 137/65 (mmHg) O2 Sat by Pulse 99 99 97 Oximetry 04/22/17 04/22/17 04/23/17 20:30 23:56 03:22 Temperature Pulse Rate 57 60 Respiratory 16 18 18 Rate Blood Pressure 115/51 134/60 (mmHg) O2 Sat by Pulse 97 92 95 Oximetry 04/23/17 04/23/17 04/23/17 08:00 08:21 08:51 Temperature 97.8 F Pulse Rate 60 58 Respiratory 18 18 18 Rate Blood Pressure 125/58 (mmHg) O2 Sat by Pulse 96 95 96 Oximetry 04/23/17 13:52 Temperature Pulse Rate 62 Respiratory 18 Rate Blood Pressure (mmHg) O2 Sat by Pulse 96 Oximetry Oxygen Devices in Use Now: Nasal Cannula - at 3L Appearance: 76 yo M in nAD, aAO3 Eyes: No Scleral Icterus, PERRLA Ears/Nose/Mouth/Throat: NL Teeth, Lips, Gums, Mucous Membranes Moist Neck: NL Appearance and Movements; NL JVP, Trachea Midline Respiratory: Symmetrical Chest Expansion and Respiratory Effort, Clear to Auscultation Cardiovascular: NL Sounds; No Murmurs; No JVD, RRR Abdominal: NL Sounds; No Tenderness; No Distention Lymphatic: No Cervical Adenopathy Extremities: No Clubbing, Cyanosis, - - mild left leg edema, R LE s/o BKA Skin: No Nodules or Sclerosis, - - left toes 2-4 with dry gangrene on bottoms and 2 cm ulcer stage 3 on dorsum of left foot Neurological: Alert and Oriented x 3, NL Muscle Strength and Tone Result Diagrams: 04/23/17 05:50 04/23/17 05:50 Additional Lab and Data: Lab Results Laboratory Tests 04/15/17 04/15/17 04/15/17 08:06 11:58 17:09 Glucose POC Glucose (mg/dL) 375 H 361 H 233 H 04/15/17 04/16/17 21:19 05:05 Glucose 220 H POC Glucose (mg/dL) 223 H Microbiology and Other Data: Microbiology 04/12/17 11:49 Legionella Urinary Antigen - Final Urine Negative Legionella Streptococcus pneumoniae Ag Screen - Final Negative S. pneumo Antigen Diagnostic Imaging: Reviewed CT chest, there is moderate R-sided pleural effusion, dependent/ layering Assess/Plan/Problems-Billing Assessment: Mr. Camargo is a 76yo M with PMH CAD, DM2, here w/ pneumonia, REY, sarcoidosis, resulting in hypercapneic respiratory failure. - Patient Problems (1) Acute hypercapnic respiratory failure Comment: - Respiratory status continues to improve. - Hypercapnea due to pneumonia, REY, and obesity hypoventilation syndrome. - Responding well to BiPAP overnight. Trilogy device recommended by pulmonology costs 800 dollars /month and is cost prohibitive for STR. Dr. Deng agreed that BIPAP is an acceptable alternative - Patient does not have a h/o COPD. (2) Fluid overload Comment: - Secondary to IV fluids and meds. - Continue diuresis with Metolazone. with 1 mg of IV Bumex on 04/19/17 he diuresed 4000 ml. will cont PO Bumex Pt is allergic to Lasix stated that it "dropped his kidneys" (3) Pleural effusion associated with pulmonary infection Comment: -Discussed potential thoracentesis w/ Dr. Deng, she felt this was transudate due to volume overload -Will need outpatient pulmonology f/u -cont diuresis (4) Healthcare associated bacterial pneumonia Comment: - Legionella and pneumococcal Ag are negative. - Blood cultures showed no growth. - Cefepime and Levofloxacin -finished 7 day course on 04/19/17 - Leukocytosis likely secondary to steroids, as clinically the patient shows signs of improvement. (5) Stage II pressure ulcer of sacral region Comment: - Present on admission. - Continue care as per Wound clinic recommendation. (6) CKD (chronic kidney disease) stage 3, GFR 30-59 ml/min Comment: - Renal function stable. (7) Diabetic foot ulcer Comment: - Present on admission also with PAD d/w DR. Leigh who will f/u with pt at the wound clinic. D/w Dr. Alegria-appreciate consult. F/u as outpatient for possible angiogram and angiplasty Pt has dry agngrene of toes-not acutely infected. left dorsum of foot ulcer with mild necrosis, cont topical care (8) Type 2 diabetes mellitus Comment: hypoglycemia resolved - Continue Lispro SS and Lantus (9) HTN (hypertension) Comment: - Controlled. - Continue Clonidine, Coreg, and amlodipine (10) Sarcoidosis Comment: on chronic PO prednisone back down to goal of 10 mg/day (11) DVT prophylaxis Comment: heparin sc Status and Disposition: Inpatient , plan to d/c back to [facility] on Monday
[2017-04-23] MEDS ORDERED: Magnesium CITRATE* 300 ML BTL PO ONE (15:50)
[2017-04-23] MEDS ORDERED: Magnesium CITRATE* 300 ML BTL PO PRN (20:17)
[2017-04-23] MEDS ORDERED: Sodium Phosphate ADULT ENEMA* 118 ml bottle PR PRN (20:19)
[2017-04-23] MEDS: Finasteride TAB* 5 MG PO SCH (21:16)
[2017-04-24] MEDS: Levothyroxine TAB* 175 MCG TAB PO SCH (06:20)
[2017-04-24] MEDS: Heparin VIAL(*) 5000 UNITS/ML VIAL (FIVE THOUSAND) SUBCUT SCH (06:20)
[2017-04-24 07:50] LABS: BUN/Creatinine Ratio 42.5 (8-20); Calcium 8.8 mg/dL (8.6-10.3); EGFR African American 47.8 (>60); EGFR Non-African American 37.2 (>60)
[2017-04-24] MEDS: Albuterol/Ipratropium NEB.SOL* Albuterol 2.5 MG/Ipratropium 0.5 MG 3 ML INH SCH ×2 (08:23→14:15)
[2017-04-24] MEDS: predniSONE TAB* 10 MG PO SCH (09:10)
[2017-04-24] MEDS: Aspirin EC Low Dose* 81 MG TAB.EC PO SCH (09:10)
[2017-04-24] MEDS: Insulin LISPRO* 1 UNITS UNIT SUBCUT SCH ×2 (09:10→13:10)
[2017-04-24] MEDS: cloNIDine TAB* 0.1 MG PO SCH ×2 (09:11→13:11)
[2017-04-24] MEDS: Bumetanide TAB* 2 MG PO SCH (09:11)
[2017-04-24] MEDS: Carvedilol TAB* 25 MG PO SCH (09:11)
[2017-04-24] MEDS: Amiodarone TAB* 200 MG PO SCH (09:11)
[2017-04-24] MEDS: Docusate CAP* 100 MG PO SCH (09:11)
[2017-04-24] MEDS: Lactobacillus Acidophilu (GG)* 1 CAP CAP PO SCH (09:11)
[2017-04-24] MEDS: amLODIPine TAB* 5 MG PO SCH (09:12)
[2017-04-24] MEDS: Artificial Tears* 15 ML BTL BOTH EYES SCH (09:12)
[2017-04-24] MEDS: Insulin GLARGINE(*) 1 UNITS UNIT SUBCUT SCH (09:21)
[2017-04-24] MEDS: Nystatin CREAM* 15 GM TUBE TOPICAL SCH (09:29)
[2017-04-24] MEDS: Collagenase 250 MG/GM OINT* 30 GM TOPICAL SCH (11:17)
[2017-04-24 11:23] LABS: Potassium 5.3 mmol/L (3.5-5.0)
[2017-04-24 13:04] VITALS: BP 116/50
--- NOTE | 2017-04-24 13:27 | DS ---
ADDENDUM NOW INCLUDED ON THIS REPORT CC: [facility], Dr. Fierro; Dr. Alegria; Dr. Leigh; Dr. Deng * CC: Dr. Anglin; Dr. Augustin * DISCHARGE SUMMARY: DATE OF ADMISSION: 04/12/17 DATE OF DISCHARGE: 04/24/17 PRIMARY CARE PROVIDER: Dr. Fierro from [facility]. DISCHARGE DIAGNOSES: 1. Acute hypercapnic respiratory failure due to healthcare-associated pneumonia. 2. Fluid overload due to initial IV fluid resuscitation with likely transudative left pleural effusion that improved greatly after diuresis with Bumex. 3. Blackmon-associated urinary tract infection with urine cultures growing Proteus mirabilis. 4. A combination of obstructive sleep apnea and possibility of obesity hypoventilation syndrome. The patient requires BiPAP at night. 5. Stage II pressures ulcer on the sacral region. 6. Peripheral vascular disease with arterial Doppler performed on 03/22/17, that showed high-grade stenosis of the mid level popliteal artery on the left and occlusion of the tibioperoneal trunk and proximal infrapopliteal arteries on the left. The patient was seen by Dr. Alegria. SECONDARY DIAGNOSES: Include: 1. Coronary artery disease, status post stenting x2. 2. Diastolic congestive heart failure with ejection fraction of 45% to 50%. 3. Hypertension. 4. Hyperlipidemia. 5. Diabetes type 2, on insulin. 6. Diabetic neuropathy. 7. History of chronic kidney disease stage III due to diabetes. 8. History of right [id number] amputation. 9. History of sarcoidosis. 10. Hypothyroidism. 11. Obstructive sleep apnea, on BiPAP. 12. Obesity. 13. History of peripheral arterial disease on the left leg with gangrene in his left toes. LABORATORY DATA AND STUDIES PERFORMED DURING THE HOSPITAL STAY: Included: On 04/23/17, white blood cell count of 18.5, hemoglobin of 11.1, hematocrit of 34, and platelets of 257. Sodium was 137, potassium pending, chloride 92, carbon dioxide 42, BUN 79, and creatinine 1.79. CT of the chest obtained on 04/14/17, impression: "Limited study. Moderate left and small right pleural effusions with left basilar compressive atelectasis. Chololithiasis." Brain CT obtained on admission, impression: "Cortical atrophy with chronic microvascular ischemic changes. No acute findings." CONSULTATIONS DURING THE HOSPITAL STAY: Included Dr. Deng from Pulmonology. MEDICATIONS AT DISCHARGE: Include: 1. Acetaminophen 500 mg, the patient takes 1000 mg b.i.d. 2. DuoNeb nebulizers on a p.r.n. basis. 3. Amiodarone 100 mg in the evening every other day. 4. Artificial tears 2 drops both eyes daily. 5. Aspirin 81 mg daily. 6. Coreg 25 mg b.i.d. 7. Vitamin D3 50,000 units monthly. 8. Santyl ointment applied to the open wounds in the left foot with dressings changed daily. 9. Colace 100 mg daily. 10. Proscar 5 mg at bedtime. 11. Insulin Lantus 10 units daily. 12. Insulin lispro sliding scale. 13. Acidophilus 1 capsule daily. 14. Levothyroxine 175 mcg on Mondays, Tuesdays, Wednesdays, , Fridays , and Saturdays. 15. Nystatin cream p.r.n. 16. Amlodipine 5 mg b.i.d. 17. Catapres 0.2 mg 3 times a day. 18. Prednisone 10 mg daily. HOSPITALIZATION COURSE: Khai Camargo is a 76-year-old male with a history of peripheral vascular disease, diabetes, chronic kidney disease stage 3, and diastolic CHF with EF of 45%, who presented to the hospital in respiratory distress. He was initially on BiPAP for initial 24 to 48 hours in the intensive care unit. He required Blackmon catheter placed and the patient was placed on broad spectrum antibiotics with full treatment of health-associated pneumonia. The patient also was on chronic steroids at that point due to history of sarcoidosis. His dose was increased to stress dose and later on was tapered down throughout his hospital stay. CT of the chest obtained 2 days later noted that the patient has bilateral pleural effusions left more than right. Dr. Deng saw the patient in consultation and noted that the patient most likely has pleural effusions due to fluid overload from resuscitation, more so than from parapneumonic effusion. Diuresis was recommended. For the remaining several days of the patient's hospital stay, the patient was diuresed with bumetanide and Zaroxolyn. Apparently, he is allergic to LASIX and he told me that LASIX "dropped his kidneys." I suspect that he meant that it is worsened his kidney function when he was on diuresis with it. Nevertheless, he tolerated Bumex and Zaroxolyn with good results and he had significant urinary output for the next several days and his peripheral edema almost resolved by the time of discharge. He finished a 7 day course of antibiotics which were broad spectrum and included cefepime and levofloxacin. Dr. Deng originally also recommended for the patient Trilogy. Unfortunately, it was martines prohibitive for a patient to be back in [facility] on Trilogy. BiPAP was an acceptable alternative and he did well on BiPAP at hospital on a nightly basis. By the time of discharge, once again, his peripheral edema that included both upper and lower extremities basically resolved. The patient also was noted to have peripheral arterial disease with a popliteal artery stenosis noted approximately a month prior to his admission. I discussed the case with Dr. Leigh, who is the patient's wound care physician. The patient has stable dry gangrene on his toes on the left foot. He is status post BKA on the right side. He also has a small ulceration on the dorsum of his left foot and stage II decubitus on his bottom. Dr. Alegria saw the patient in consultation in regards to possibility of angioplasty and intervention of vasculature to his left leg. Dr. Alegria wishes to see the patient as outpatient for followup to set up possible intervention time. Overall, the patient did very well and he is going to go back to [facility] with recommendation that if he starts gaining weight again and starts getting edematous again, to restart his bumetanide at 2 mg daily. Unfortunately by the time of discharge, the patient's creatinine started to rise and his CO2 also shane giving the impression that he probably has developing contraction alkalosis and that is why his diuretic was stopped at discharge. Please also note that he had, as mentioned above, Blackmon associated Proteus UTI that was treated during his hospital stay. At discharge, the patient recommended to follow up with [facility] provider [facility] in approximately 4 to 7 days. The patient is recommended to follow up with Dr. Alegria in approximately 1 to 2 weeks for possibility of angioplasty of the popliteal artery on the left leg. The patient also needs to follow up with [facility]. [facility] in approximately 1 week. WOUND CARE AT DISCHARGE: Include Santyl dressings to open areas of the left foot. Change or alternate position of patient every 2 hours and apply DuoDERM dressing to the patient's decubitus on his back. PHYSICAL EXAMINATION AT THE TIME OF DISCHARGE: Blood pressure of 175/62, heart rate of 60 and regular, respiratory rate 18, oxygen saturation 95% on 3 L of oxygen nasal cannula, temperature 98.4. General: The patient is a very pleasant 76-year- old male who is in no acute distress. Alert, awake, and oriented x3. HEENT: Head atraumatic, normocephalic. Eyes: Pupils are equal, round, reactive to light and accommodation. Oropharynx clear. Mucosa moist. Neck: Supple. No JVD, no bruits bilaterally. Cardiovascular: Regular rate and rhythm. No murmur. Respiratory: Basically clear in bilateral lungs with decreased breath sounds at the left lung base. Abdomen: Soft, nontender. Bowel sounds are present in all 4 quadrants. Extremities: The patient is status post right-sided BKA. The left foot is with very mild edema, much decreased from prior. There are poorly palpable peripheral pulses in the left lower extremity. There is no clubbing or cyanosis. On evaluation of the skin, the patient has stage II sacral decubitus of approximately 10 cm in diameter. He also has stage III very small ulcer of approximately 1 to 2 cm on the dorsum of his left foot, not infected. He also has dry black gangrenous changes on the bottom of his toes from #2 to #4 that have been unchanged throughout his hospital stay. Neuro evaluation, cranial nerves II through XII are grossly intact. Motor strength is 5/5 bilaterally. Please note that this is a very short summary of the patient's prolonged and complicated hospitalization. Please refer to further medical records for details. ADDENDUM: Please note that the patient had a Blackmon catheter for most of his hospitalization and initially was inserted for acute urinary retention when he was in respiratory distress. An attempt was made to discontinue the catheter on the day of discharge on 04/24/17, but unfortunately the patient continued to retain urine after discontinuation of catheter. At this point, the Blackmon catheter is going to be reinserted and the patient is going to go with Blackmon catheter back to [facility]. It is recommended for the patient to be evaluated by urologist as outpatient and for the time being to continue Blackmon. It was recommended for the [facility] to schedule an appointment with either Dr. Anglin or Dr. Augustin for followup in approximately 1 to 2 weeks. [id number]/CPS #: [id number]/CPS #: [id number] MORIS
--- NOTE | 2017-04-25 04:10 | DS ---
CC: Dr. Anglin; Dr. Augustin DISCHARGE SUMMARY: * ADDENDUM: Please note that the patient had a Blackmon catheter for most of his hospitalization and initially was inserted for acute urinary retention when he was in respiratory distress. An attempt was made to discontinue the catheter on the day of discharge on 04/24/17, but unfortunately the patient continued to retain urine after discontinuation of catheter. At this point, the Blackmon catheter is going to be reinserted and the patient is going to go with Blackmon catheter back to [facility]. It is recommended for the patient to be evaluated by urologist as outpatient and for the time being to continue Blackmon. It was recommended for the [facility] to schedule an appointment with either Dr. Anglin or Dr. Augustin for followup in approximately 1 to 2 weeks. [id number]/CPS #: [id number] MTDD
== END 2017-04-24 16:00 | DRG 193 ==
LOC: ED 08:28 → ICU 10:34 → MEDTELE 04-16 08:46 → MED 04-21 12:08
PROVIDERS: ADMIT Internal Medicine; ATTEND Internal Medicine
PROC: 5A09557 Assistance with Respiratory Ventilation, Greater than 96 Consecutive Hours, Continuous Positive Airway Pressure (ICD-10-PCS; principal; 2017-04-12)
PROC: 0T9B70Z Drainage of Bladder with Drainage Device, Via Natural or Artificial Opening (ICD-10-PCS; 2017-04-24)
PROC: 0TPBX0Z Removal of Drainage Device from Bladder, External Approach (ICD-10-PCS; 2017-04-24)
PROC: 0T9B70Z Drainage of Bladder with Drainage Device, Via Natural or Artificial Opening (ICD-10-PCS; 2017-04-24)
DX: J15.9 Unspecified bacterial pneumonia (principal); J96.01 Acute respiratory failure with hypoxia; L89.152 Pressure ulcer of sacral region, stage 2; I96 Gangrene, not elsewhere classified; J96.02 Acute respiratory failure with hypercapnia; I13.0 Hypertensive heart and chronic kidney disease with heart failure and stage 1 through stage 4 chronic kidney disease, or unspecified chronic kidney disease; I50.32 Chronic diastolic (congestive) heart failure; E11.52 Type 2 diabetes mellitus with diabetic peripheral angiopathy with gangrene; E11.22 Type 2 diabetes mellitus with diabetic chronic kidney disease; R13.10 Dysphagia, unspecified; E87.70 Fluid overload, unspecified; E66.2 Morbid (severe) obesity with alveolar hypoventilation; N39.0 Urinary tract infection, site not specified; T83.511A Infection and inflammatory reaction due to indwelling urethral catheter, initial encounter; J98.11 Atelectasis; I25.10 Atherosclerotic heart disease of native coronary artery without angina pectoris; E11.40 Type 2 diabetes mellitus with diabetic neuropathy, unspecified; E78.5 Hyperlipidemia, unspecified; D86.9 Sarcoidosis, unspecified; E03.9 Hypothyroidism, unspecified; N18.3 Chronic kidney disease, stage 3 (moderate); Z66 Do not resuscitate; D64.9 Anemia, unspecified; E11.621 Type 2 diabetes mellitus with foot ulcer; E11.649 Type 2 diabetes mellitus with hypoglycemia without coma; L97.529 Non-pressure chronic ulcer of other part of left foot with unspecified severity; K59.00 Constipation, unspecified; R60.0 Localized edema; I70.209 Unspecified atherosclerosis of native arteries of extremities, unspecified extremity; B96.4 Proteus (mirabilis) (morganii) as the cause of diseases classified elsewhere; Y73.1 Therapeutic (nonsurgical) and rehabilitative gastroenterology and urology devices associated with adverse incidents; R33.9 Retention of urine, unspecified; K80.20 Calculus of gallbladder without cholecystitis without obstruction; Z79.82 Long term (current) use of aspirin; Z79.4 Long term (current) use of insulin; Z95.5 Presence of coronary angioplasty implant and graft; Z89.511 Acquired absence of right leg below knee; Z68.39 Body mass index [BMI] 39.0-39.9, adult; Z88.8 Allergy status to other drugs, medicaments and biological substances; Z87.891 Personal history of nicotine dependence; Z90.81 Acquired absence of spleen; Y92.9 Unspecified place or not applicable; Z98.42 Cataract extraction status, left eye; Z98.41 Cataract extraction status, right eye; Z80.3 Family history of malignant neoplasm of breast; Z79.52 Long term (current) use of systemic steroids
CPT/HCPCS: 36415; 36600; 70450; 71010; 71250; 80048; 80053; 81003; 81015; 82550; 82803; 82947; 83605; 83880; 84145; 84484; 85025; 85027; 85384; 85610; 85652; 85730; 86140; 86850; 86900; 86901; 87040; 87070; 87077; 87086; 87186; 87205; 87502; 87899; 90686; 93005; 94640; 94660; 94760; A9270-GY; J0360; J0692; J1644; J1940; J2920; J3370; J7512